=== PATIENT | female | born 1935 | race Caucasian/White ===

== ENCOUNTER 2017-11-13 13:33 | Outpatient (POV) | payer MEDICARE, SELFPAY | END 2017-11-13 16:50 | disposition home or self-care (01) | PROVIDERS: Visit Provider Podiatrist | DX: B35.3 Tinea pedis (principal); M20.41 Other hammer toe(s) (acquired), right foot; L84 Corns and callosities; M19.072 Primary osteoarthritis, left ankle and foot; M20.42 Other hammer toe(s) (acquired), left foot; M19.071 Primary osteoarthritis, right ankle and foot | CPT/HCPCS: 11056; 99204 ==

== ENCOUNTER 2017-11-28 08:52 | Outpatient (RCR) | payer MEDICARE, SELFPAY | END 2017-11-28 08:53 | LOC: PT 08:52 | PROVIDERS: Visit Provider Podiatrist | DX: M72.2 Plantar fascial fibromatosis (principal) ==

== ENCOUNTER 2017-12-02 13:00 | Outpatient (RCR) | payer MEDICARE, SELFPAY | END 2017-12-02 23:59 | LOC: PT 13:00 | PROVIDERS: Visit Provider Podiatrist | DX: M72.2 Plantar fascial fibromatosis (principal) | CPT/HCPCS: G8990; G8991; G8992; 97163 ==

== ENCOUNTER 2018-03-16 13:00 | Outpatient (RCR) | payer MEDICARE, SELFPAY ==
--- NOTE | 2018-01-21 14:19 | HMH.PTOPWND ---
Rehab Outpt Wound Evaluation Rehab OP Wound Evaluation Start: 01/21/18 14:15 Freq: Status: Active Protocol: Document 01/21/18 14:15 PHORNE (Rec: 01/21/18 14:19 PHORNE [id number]) Electronically Signed By Ganga Soriano, PT 01/21/18 14:15 Subjective/History History History Pt presents with c/o increased right UE edema causing disconfort x ~1-2 mos. She is well known to [facility] rehab due to hx of chronic right UE lymphedema secondary to past right side mastectomy. She currently reports no c/o pain, only feeling of tightness throughout the right UE and worse in the hand. She has significant PMH with juanis RCT tears and OA. Lymphedema Eval Classification of Lymphedema Secondary Lymphedema Yes: chronic Skin Changes Dry Skin Yes Pain Scale Pain Scale (0-10) 0 Affected Extremities Areas Affected by Lymphedema/Edema Right Upper Extremity Manual Lymphatic Drainage Treatment Area MLD Treatment Area Right Upper Extremity Abdomen Wound Problems/Impairments Impairments Problems/Impairmments Impaired Walking Impaired Lifting Increased Edema Lymphedema Present Impaired Self Care/Self Management Prognosis Rehab Potential Good Clinical Impression Consistent with Diagnosis Yes Short Term Goals Number of Weeks 4 Patient to be Ind w/ Donning/[place] Yes Compression Garments Patient to Understand Lymphedema Yes Treatment and Exercises Decrease Girth Measurments by (cm) Yes: by 5 cm Fixed Income Analyst Goals Number of Weeks 8 Patient to be Ind w/ Lymphedema Yes Management Patient to Adhere Lymphedema Precautions Yes Decrease Girth Measurments by (cm) Yes: by 10 cm Outpatient Therapy Plan of Care Treatment Plan May Include Therapeutic Exercise Including Home Yes Exercise Program Manual Therapy Techniques Yes Neuromuscular Re-education Yes Orthotics/Bracing/Splinting Yes Massage Yes Manual Lymphatic Drainage Yes Eval/Re-Eval Yes Frequency Times per week 2 Duration Number of Weeks 8 Addendums This patient is a candidate for social Yes or vocational rehab?
== END 2018-03-16 13:01 | disposition home or self-care (01) ==
LOC: PT 13:00
PROVIDERS: Visit Provider Internal Medicine Adolescent Medicine
DX: I89.0 Lymphedema, not elsewhere classified (principal)
CPT/HCPCS: 97140; 97162; 97760

== ENCOUNTER → 2018-05-26 14:18 | Outpatient (CLI) | payer MEDICARE, SELFPAY ==
[2018-05-26 15:22] LABS: Basophils # 0.1 K/mm3 (0-0.2); Basophils % 0.8 % (0.1-2.0); Eosinophils # 0.3 K/mm3 (0.0-0.4); Eosinophils % 3.9 % (0.1-12.0); Hematocrit 42.8 % (37.0-47.0); Hemoglobin 13.3 g/dL (12.2-16.2); Lymphocytes # 2.4 K/mm3 (0.7-4.5); Lymphocytes % 30.7 K/mm3 (10-50); Mean Corpuscular Hemoglobin 29.2 pg (27.0-31.2); Mean Platelet Volume 7.7 fl (7.4-10.4); Monocytes # 0.6 K/mm3 (0.1-1.0); Monocytes % 7.4 % (1.7-9.3); Neutrophils # 4.4 K/mm3 (1.8-7.8); Neutrophils % 57.1 % (37.0-80.0); Platelet Count 360 K/mm3 (142-424); Red Blood Count 4.55 M/mm3 (4.20-5.40); Red Cell Distribution Width 13.3 % (11.5-17.5); White Blood Count 7.6 K/mm3 (4.8-10.8)
[2018-05-26 16:37] LABS: Alanine Aminotransferase 18 U/L (12-78); Albumin Level 3.8 gm/dL (3.4-5.0); Albumin/Globulin Ratio 1.2 (1.1-1.8); Alkaline Phosphatase 108 U/L (46-116); Anion Gap 9.3 mEq/L (5-15); Aspartate Amino Transferase 20 U/L (15-37); Bilirubin,Total 0.5 mg/dL (0.2-1.0); Blood Urea Nitrogen 13 mg/dL (7-18); Carbon Dioxide 31 mmol/L (21.0-32.0); Chloride 100 mmol/L (98-107); Creatinine,Serum 0.77 mg/dL (0.55-1.02); Estimated Glomerular Filt Rate 72 ml/min (>60); GFR (African American) 87 ML/MIN (>60); Globulin 3.2 gm/dl (1.3-3.2); Glucose 90 mg/dL (74-106); Potassium 4.3 mmoL/L (3.5-5.1); Sodium 136 mmol/L (136-145); Thyroid Stimulating Hormone 1.86 uIU/ml (0.358-3.740)
[2018-05-27 13:07] LABS: Magnesium 1.9 mg/dL (1.4-2.2)
[2018-05-28 13:56] LABS: Vitamin B12 427 pg/mL (232-1245)
== END ==
PROVIDERS: Visit Provider Nurse Practitioner Family
DX: I48.0 Paroxysmal atrial fibrillation (principal); I10 Essential (primary) hypertension; K86.89 Other specified diseases of pancreas; K21.9 Gastro-esophageal reflux disease without esophagitis; K58.0 Irritable bowel syndrome with diarrhea
CPT/HCPCS: 36415; 80053; 82607; 83735; 84443; 85025

== ENCOUNTER → 2018-06-26 14:16 | Outpatient (POV) | payer MEDICARE, SELFPAY | PROVIDERS: Visit Provider Podiatrist | DX: Z00.00 Encounter for general adult medical examination without abnormal findings (principal) ==

== ENCOUNTER → 2018-08-14 11:30 | Outpatient (POV) | payer MEDICARE, SELFPAY | PROVIDERS: Visit Provider Podiatrist | DX: Z00.00 Encounter for general adult medical examination without abnormal findings (principal) ==

== ENCOUNTER → 2018-09-25 12:47 | Outpatient (CLI) | payer MEDICARE, SELFPAY ==
--- NOTE | 2018-09-25 12:53 | XR_ITS ---
XR abdomen min 2V COMPARISON: CT scan abdomen and pelvis 10/23/2015 HISTORY: Abnormal pain TECHNIQUE: KUB and upright abdomen FINDINGS: There is a large hiatal hernia with probable one half to two thirds of the stomach above the diaphragmatic hiatus. There are few short air-fluid levels on the upright film likely within distal small bowel loops. There is a small amount of gas in the hepatic flexure and proximal transverse colon appear there is very little if any gas distal to the splenic flexure. There are no abnormal soft tissue shadows. Is rather severe multilevel degenerative changes of the lumbar spine with dextro scoliotic curvature with a rotatory component. There is osseous fusion of multiple ossific spurs at the L1-2 through the L5-S1 level. There is no free air. IMPRESSION: 1. Large hiatal hernia 2. Mildly abnormal nonspecific bowel gas pattern 3. Prominent multilevel degenerative changes of lumbar spine showing no significant interval progression from the changes seen on the CT scan abdomen pelvis October 2015.
== END ==
PROVIDERS: PCP Internal Medicine Adolescent Medicine; Visit Provider Internal Medicine Adolescent Medicine
DX: R10.9 Unspecified abdominal pain (principal)
CPT/HCPCS: 74019

== ENCOUNTER → 2018-10-01 11:13 | Outpatient (POV) | payer MEDICARE, SELFPAY | PROVIDERS: Visit Provider Podiatrist | DX: Z00.00 Encounter for general adult medical examination without abnormal findings (principal) ==

== ENCOUNTER → 2018-12-10 13:03 | Outpatient (CLI) | payer MEDICARE, SELFPAY ==
[2018-12-10 13:53] LABS: Basophils % 0.6 % (0.1-2.0); Eosinophils # 0.1 K/mm3 (0.0-0.4); Eosinophils % 0.8 % (0.1-12.0); Hematocrit 42.5 % (37.0-47.0); Lymphocytes # 1.7 K/mm3 (0.7-4.5); Mean Corpuscular HGB Conc 30.6 g/dL (31.8-35.4); Mean Corpuscular Hemoglobin 29.3 pg (27.0-31.2); Mean Corpuscular Volume 95.9 fl (81-99); Monocytes # 0.5 K/mm3 (0.1-1.0); Monocytes % 8.4 % (1.7-9.3); Neutrophils % 63.2 % (37.0-80.0); Platelet Count 331 K/mm3 (142-424); Red Blood Count 4.43 M/mm3 (4.20-5.40); White Blood Count 6.2 K/mm3 (4.8-10.8)
[2018-12-10 14:25] LABS: Anion Gap 11.4 mEq/L (5-15); Blood Urea Nitrogen 14 mg/dL (7-18); Calcium 9.2 mg/dL (8.5-10.1); Carbon Dioxide 31 mmol/L (21.0-32.0); Chloride 96 mmol/L (98-107); Creatinine,Serum 0.86 mg/dL (0.55-1.02); Estimated Glomerular Filt Rate 63 ml/min (>60); GFR (African American) 76 ML/MIN (>60); Glucose 98 mg/dL (74-106); Magnesium 1.7 mg/dL (1.4-2.2); Potassium 4.4 mmoL/L (3.5-5.1); Sodium 134 mmol/L (136-145)
== END ==
PROVIDERS: Visit Provider Internal Medicine Adolescent Medicine
DX: R25.1 Tremor, unspecified (principal)
CPT/HCPCS: 36415; 80048; 83735; 85025

== ENCOUNTER → 2019-03-22 10:55 | Outpatient (CLI) | payer MEDICARE, SELFPAY ==
--- NOTE | 2019-03-22 | CI_ITS ---
Cerebrovascular Exam Indications: 433.10 Occlusion/stenosis of carotid artery without cerebral infarction. IMPRESSIONS 1. The bilateral vertebral arteries are patent with normal antegrade flow. Right ECA greater than 50% stenotic 2. Study suggests 20-49%(lower end of scale)stenosis involving the right internal carotid artery. 3. Study suggests 20-49% stenosis involving the left internal carotid artery. Disease progression from the study of 04-Jul-2016. Carotid duplex study. Complete study and Doppler flow study including spectral analysis, color and esteves scale imaging. Location: Vascular laboratory. Patient status: Outpatient. Tables: Arterial flow: + +--------+--------+ Location V sys V ed + +--------+--------+ Right CCA - proximal 110cm/s 17.3cm/s + +--------+--------+ Right CCA - distal 72.3cm/s 11.8cm/s + +--------+--------+ Right ECA 356cm/s -------- + +--------+--------+ Right ICA - proximal 45.4cm/s 14cm/s + +--------+--------+ Right ICA - mid 53.8cm/s 13.3cm/s + +--------+--------+ Right ICA - distal 98.5cm/s 28.6cm/s + +--------+--------+ Right vertebral 62.9cm/s -------- + +--------+--------+ Left CCA - proximal 99.2cm/s 16.1cm/s + +--------+--------+ Left CCA - distal 58.7cm/s 14.7cm/s + +--------+--------+ Left ECA 79.6cm/s -------- + +--------+--------+ Left ICA - proximal 97.8cm/s 14cm/s + +--------+--------+ Left ICA - mid 89.4cm/s 20.3cm/s + +--------+--------+ Left ICA - distal 94.3cm/s 23cm/s + +--------+--------+ Left vertebral 58cm/s -------- + +--------+--------+ Velocity ratios: + + + + + + Right, V sys Right, V ed Left, V sys Left, V ed + + + + + + Max ICA/dist CCA 1.36 2.42 1.67 1.56 + + + + + + (Report amended ) Electronically signed by: Henry Wynn [id number]
[2019-03-22 11:23] LABS: Basophils # 0.1 K/mm3 (0-0.2); Eosinophils # 0.2 K/mm3 (0.0-0.4); Eosinophils % 2.3 % (0.1-12.0); Hematocrit 40.5 % (37.0-47.0); Hemoglobin 13.2 g/dL (12.2-16.2); Lymphocytes % 28.4 % (10-50); Mean Corpuscular HGB Conc 32.5 g/dL (31.8-35.4); Mean Corpuscular Volume 92.5 fl (81-99); Mean Platelet Volume 7.2 fl (7.4-10.4); Monocytes # 0.4 K/mm3 (0.1-1.0); Monocytes % 5.7 % (1.7-9.3); Neutrophils # 4.3 K/mm3 (1.8-7.8); Neutrophils % 62.4 % (37.0-80.0); Platelet Count 410 K/mm3 (142-424); Red Blood Count 4.38 M/mm3 (4.20-5.40); White Blood Count 6.8 K/mm3 (4.8-10.8)
[2019-03-22 12:44] LABS: Alanine Aminotransferase 19 U/L (12-78); Albumin Level 3.7 gm/dL (3.4-5.0); Alkaline Phosphatase 110 U/L (46-116); Anion Gap 12.8 mEq/L (5-15); Aspartate Amino Transferase 13 U/L (15-37); Bilirubin,Total 0.5 mg/dL (0.2-1.0); Blood Urea Nitrogen 15 mg/dL (7-18); Calcium 9.7 mg/dL (8.5-10.1); Carbon Dioxide 30 mmol/L (21.0-32.0); Chloride 100 mmol/L (98-107); Chol/HDL Ratio 3.7 (1-3.5); Cholesterol 167 mg/dL (140-200); Creatinine,Serum 0.92 mg/dL (0.55-1.02); Estimated Glomerular Filt Rate 58 ml/min (>60); GFR (African American) 71 ML/MIN (>60); Globulin 3.7 gm/dl (1.3-3.2); Glucose 92 mg/dL (74-106); HDL Cholesterol 45 mg/dL (29-89); LDL Cholesterol 103 mg/dL (0-130); Potassium 4.8 mmoL/L (3.5-5.1); Sodium 138 mmol/L (136-145); Thyroid Stimulating Hormone 2.23 uIU/ml (0.358-3.740); Total Protein,Serum 7.4 gm/dL (6.4-8.2); Triglycerides 96 mg/dL (30-200); VLDL Cholesterol 19 mg/dL (0-40)
== END ==
PROVIDERS: PCP Nurse Practitioner Family; Visit Provider Nurse Practitioner Family
DX: I65.23 Occlusion and stenosis of bilateral carotid arteries (principal); I10 Essential (primary) hypertension; I48.0 Paroxysmal atrial fibrillation; M12.9 Arthropathy, unspecified
CPT/HCPCS: 36415; 80053; 80061; 84443; 85025; 93880

== ENCOUNTER → 2019-06-21 12:43 | Outpatient (POV) | payer MEDICARE, SELFPAY ==
[2019-06-21 12:53] VITALS: BP 169/55; PULSE 62; RESP 18; O2SAT 98; BMI 31.1
--- NOTE | 2019-06-21 13:26 | HMH.PMCON ---
Assessment and Plan (1) Sacroiliitis Current visit: Yes Status: Chronic Category: Medical Code(s): M46.1 - Sacroiliitis, not elsewhere classified (2) Greater trochanteric bursitis of right hip Current visit: Yes Status: Chronic Category: Medical Code(s): M70.61 - Trochanteric bursitis, right hip - Assessment and plan all Dx Assessment and Plan for all problems:: We will schedule the patient for a right SI joint injection in her right greater trochanteric bursa injection. Patient will continue with anti-inflammatories and home stretching program. We will see the patient back after her procedure to reassess her symptoms at that time. She is been instructed to call the office if she has any concerns prior to her next appointment. Dr. Hale has reviewed this note and agrees with this plan of care. This note was dictated using voice recognition software and make contain errors or omissions. HPI - Data of Consult Patient: new to practice Consult date: 06/21/19 Requesting Physician: Morenita Foster APRN Primary Care Provider: Fatmata Hercules APRN - Consult Narrative Reason for consult: Right lower back pain, right groin pain, right buttock pain History of present illness: Ms. Laughlin is a 84 year old female who presents today for referral from Fatmata Hercules. Patient reports that she is having increased pain in her lower back, with radiation to her right buttock and right groin area. Patient says she has had this in the past and has seen a chiropractor and performed physical therapy. She says that this has helped with her pain, but did not take the pain away entirely. She says this has been ongoing for about 2 years. The patient has also tried Biofreeze, along with cold therapy with very little relief. Patient rates her pain as 7 out of 10 today. She says that her pain is worse when lying down and with bending over to put on her socks. Patient does continue her home stretching program and anti-inflammatories. CC: Morenita Foster APRN [facility] History I have reviewed the patient's past medical history: Yes Medical History: Reports:: Atrial Fibrillation, Hepatitis, Hyperlipidemia, Hypertension Denies:: Cerebrovascular Accident, Diabetes Mellitus Type 1, Diabetes Mellitus Type 2, Myocardial Infarction, Renal Disease, Renal Insufficiency *Have you ever received a pneumonia vaccine?: Yes *Have you received a flu vaccine this season?: Yes Other Medical History: Reports: Arthritis Laterality Cases: Right: Mastectomy, Bilateral: Tonsillectomy Other Surgeries: Yes: Cholecystectomy Amputation: No Fractures: No - *Social History Smoking Status: Never smoker Alcohol Intake: never Alcohol Intake Frequency:: other *Occupational Status:: retired Housing: house Household Members: other *Travel in the last 8 weeks: None Family Hx:: Cancer, Diabetes, Hyperlipidemia, Hypertension Review of Systems - Review of Systems Review of Systems General: No recent weight changes, no fever, no sleep disturbances Respiratory: No cough, no shortness of air, no recurring pulmonary infections Cardiovascular/peripheral vascular: No chest pain, no palpitations, no edema, no shortness of breath Gastrointestinal: No new onset incontinence, normal bowel movements reported Genitourinary: No new onset incontinence Musculoskeletal: Back pain, right groin pain, right buttock pain Psychiatric: Normal mood/affect Neurological: [Denies weakness in extremities], [denies balance issues] Meds Home Medications Medication Instructions Recorded Confirmed Type aspirin 81 mg tablet,delayed 81 mg PO ONCE 01/26/18 04/27/19 History release buspirone 10 mg tablet 10 mg PO 30 Days tab 01/26/18 04/27/19 History carvedilol 6.25 mg tablet 6.25 mg PO 30 Days tab 01/26/18 04/27/19 History cholecalciferol (vitamin D3) 2,000 2,000 unit PO ONCE 01/26/18 04/27/19 History unit capsule furosemide 40 mg tablet 40 mg PO ONCE 01/26/18
--- NOTE | 2019-06-21 13:29 | P.CONS_ITS ---
Assessment and Plan (1) Sacroiliitis Current visit: Yes Status: Chronic Category: Medical Code(s): M46.1 - Sacroiliitis, not elsewhere classified (2) Greater trochanteric bursitis of right hip Current visit: Yes Status: Chronic Category: Medical Code(s): M70.61 - Trochanteric bursitis, right hip - Assessment and plan all Dx Assessment and Plan for all problems:: We will schedule the patient for a right SI joint injection in her right greater trochanteric bursa injection. Patient will continue with anti-inflammatories and home stretching program. We will see the patient back after her procedure to reassess her symptoms at that time. She is been instructed to call the office if she has any concerns prior to her next appointment. Dr. Hale has reviewed this note and agrees with this plan of care. This note was dictated using voice recognition software and make contain errors or omissions. HPI - Data of Consult Patient: new to practice Consult date: 06/21/19 Requesting Physician: Morenita Foster APRN Primary Care Provider: Fatmata Hercules APRN - Consult Narrative Reason for consult: Right lower back pain, right groin pain, right buttock pain History of present illness: Ms. Laughlin is a 84 year old female who presents today for referral from Fatmata Hercules. Patient reports that she is having increased pain in her lower back, with radiation to her right buttock and right groin area. Patient says she has had this in the past and has seen a chiropractor and performed physical therapy. She says that this has helped with her pain, but did not take the pain away entirely. She says this has been ongoing for about 2 years. The patient has also tried Biofreeze, along with cold therapy with very little relief. Patient rates her pain as 7 out of 10 today. She says that her pain is worse when lying down and with bending over to put on her socks. Patient does continue her home stretching program and anti-inflammatories. CC: Morenita Foster APRN [facility] History I have reviewed the patient's past medical history: Yes Medical History: Reports:: Atrial Fibrillation, Hepatitis, Hyperlipidemia, Hypertension Denies:: Cerebrovascular Accident, Diabetes Mellitus Type 1, Diabetes Melli tus Type 2, Myocardial Infarction, Renal Disease, Renal Insufficiency *Have you ever received a pneumonia vaccine?: Yes *Have you received a flu vaccine this season?: Yes Other Medical History: Reports: Arthritis Laterality Cases: Right: Mastectomy, Bilateral: Tonsillectomy Other Surgeries: Yes: Cholecystectomy Amputation: No Fractures: No - *Social History Smoking Status: Never smoker Alcohol Intake: never Alcohol Intake Frequency:: other *Occupational Status:: retired Housing: house Household Members: other *Travel in the last 8 weeks: None Family Hx:: Cancer, Diabetes, Hyperlipidemia, Hypertension Review of Systems - Review of Systems Review of Systems General: No recent weight changes, no fever, no sleep disturbances Respiratory: No cough, no shortness of air, no recurring pulmonary infections Cardiovascular/peripheral vascular: No chest pain, no palpitations, no edema, no shortness of breath Gastrointestinal: No new onset incontinence, normal bowel movements reported Genitourinary: No new onset incontinence Musculoskeletal: Back pain, right groin pain, right buttock pain Psychiatric: Normal mood/affect Neurological: [Denies weakness in extremities], [denies balance issues] Meds Home Medications
== END ==
PROVIDERS: PCP Nurse Practitioner Family; Visit Provider Clinical Nurse Specialist Family Health
DX: M46.1 Sacroiliitis, not elsewhere classified (principal); M70.61 Trochanteric bursitis, right hip
CPT/HCPCS: 99202

== ENCOUNTER → 2019-07-15 12:53 | Outpatient (CLI) | payer MEDICARE, SELFPAY ==
--- NOTE | 2019-07-15 12:57 | XR_ITS ---
PROCEDURE: XR KUB CLINICAL INDICATION: LOW ABD PAIN, RECTAL PRESSURE, IBS COMPARISON: ABDPELW CT ABD PELVIS W/ CONTRAST from 10/23/2015 FINDINGS: Nonspecific nonobstructive bowel gas pattern. There is a 5 mm calcific density in the mid abdominal region on the left and could be due to a renal stone. There is a mild amount of retained colonic feces in the right colon. No evidence of intestinal obstruction or free air. There is lumbar scoliosis convex right with bridging osteophytes of the lumbar spine on the right and with osteoarthritic changes of the SI joints and hips. IMPRESSION: Nonspecific nonacute findings Dictated by: Preet Sofia MD 07/15/2019 17:28 Signed by: <Electronically signed by Preet Sofia MD in [place]> 07/15/2019 17:28
== END ==
PROVIDERS: PCP Nurse Practitioner Family; Visit Provider Nurse Practitioner Family
DX: R10.30 Lower abdominal pain, unspecified (principal); R19.8 Other specified symptoms and signs involving the digestive system and abdomen; K58.2 Mixed irritable bowel syndrome
CPT/HCPCS: 74018

== ENCOUNTER → 2019-07-26 13:00 | Outpatient (POV) | payer MEDICARE, SELFPAY ==
[2019-07-26 13:40] VITALS: BP 175/52; PULSE 57; RESP 18; O2SAT 98; BMI 29.1
--- NOTE | 2019-07-26 13:50 | HMH.PAINSOAP ---
[facility] Pain Management SOAP Note Subjective:: Patient is a pleasant 84-year-old white female who presents today for follow-up after right SI joint injection. She rates her pain a 0 out of 10 she is overall doing well she would like to follow-up on an as-needed basis. ROS General: no recent weight change, no fever, no sleep disturbances Respiratory: no cough, no shortness of air, no recurring pulmonary infections Cardiovascular/Peripheral Vascular: No chest pain, No palpitations, no edema, no shortness of breath. Gastrointestinal: no incontinence, normal bowel movements reported Genitourinary: no incontinence Musculoskeletal: Right hip pain at times Psychiatric: normal mood/ affect, Neurological: [denies weakness in extremities], [denies balance issues] Objective:: Physical Exam General: Alert and oriented x3, no acute distress, pleasant and cooperative, [on room air] Lungs: Resps E/U, Symmetrical chest expansion, Eyes: PERRL Musculoskeletal: Flexion and extension of lumbar spine somewhat guarded secondary to pain, deep tendon reflexes normal, strength in upper and lower extremities [5/5], antalgic gait noted Neurological: speech clear, home health physical therapist equal, no gross sensory deficits Assessment:: Sacroiliitis and trochanteric bursitis Plan:: Overall patient is doing extremely well rating her pain a 0 out of 10 she would like to follow-up on an as-needed basis. She has been instructed to call the office if she has any issues or worsening pain. Dr. Hale has reviewed this note and agrees with this plan of care. This note was dictated using voice recognition software and may contain errors or omissions Pain Management Hx Components *Have you ever received a pneumonia vaccine?: Yes *Have you received a flu vaccine this season?: Yes - *Social History *Occupational Status:: other *Travel in the last 8 weeks: None
== END ==
PROVIDERS: PCP Internal Medicine Adolescent Medicine; Visit Provider Clinical Nurse Specialist Family Health
DX: M46.1 Sacroiliitis, not elsewhere classified (principal); M70.60 Trochanteric bursitis, unspecified hip
CPT/HCPCS: 99212

== ENCOUNTER → 2019-12-28 11:48 | Outpatient (CLI) | payer MEDICARE, SELFPAY ==
[2019-12-28 12:15] LABS: Basophils # 0.1 K/mm3 (0-0.2); Basophils % 1.4 % (0.1-2.0); Eosinophils # 0.2 K/mm3 (0.0-0.4); Eosinophils % 2.7 % (0.1-12.0); Hematocrit 42.3 % (37.0-47.0); Hemoglobin 13.5 g/dL (12.2-16.2); Lymphocytes % 28.9 % (10-50); Mean Corpuscular HGB Conc 31.8 g/dL (31.8-35.4); Mean Corpuscular Hemoglobin 30.4 pg (27.0-31.2); Mean Corpuscular Volume 95.5 fl (81-99); Mean Platelet Volume 7.8 fl (7.4-10.4); Monocytes # 0.5 K/mm3 (0.1-1.0); Monocytes % 7.3 % (1.7-9.3); Neutrophils % 59.7 % (37.0-80.0); Platelet Count 295 K/mm3 (142-424); Red Blood Count 4.43 M/mm3 (4.20-5.40); Red Cell Distribution Width 12.6 % (11.5-17.5); White Blood Count 6.8 K/mm3 (4.8-10.8)
[2019-12-28 14:21] LABS: Alanine Aminotransferase 15 U/L (12-78); Albumin Level 3.7 gm/dL (3.4-5.0); Albumin/Globulin Ratio 1.2 (1.1-1.8); Alkaline Phosphatase 99 U/L (46-116); Anion Gap 13.9 mEq/L (5-15); Bilirubin,Total 0.5 mg/dL (0.2-1.0); Blood Urea Nitrogen 15 mg/dL (7-18); Calcium 9.2 mg/dL (8.5-10.1); Carbon Dioxide 29 mmol/L (21.0-32.0); Chloride 105 mmol/L (98-107); Chol/HDL Ratio 2.7 (1-3.5); Cholesterol 150 mg/dL (140-200); Estimated Glomerular Filt Rate 60 ml/min (>60); GFR (African American) 72 ML/MIN (>60); Glucose 85 mg/dL (74-106); HDL Cholesterol 55 mg/dL (29-89); LDL Cholesterol 81 mg/dL (0-130); Sodium 143 mmol/L (136-145); Thyroid Stimulating Hormone 1.71 uIU/ml (0.358-3.740); Total Protein,Serum 6.7 gm/dL (6.4-8.2); Triglycerides 72 mg/dL (30-200); VLDL Cholesterol 14 mg/dL (0-40)
[2019-12-28 14:23] LABS: Potassium 4.9 mmoL/L (3.5-5.1)
[2019-12-28 14:24] LABS: Aspartate Amino Transferase 22 U/L (15-37)
== END ==
PROVIDERS: Visit Provider Nurse Practitioner Family
DX: I10 Essential (primary) hypertension (principal); E78.5 Hyperlipidemia, unspecified; K58.0 Irritable bowel syndrome with diarrhea
CPT/HCPCS: 36415; 80053; 80061; 84443; 85025

== ENCOUNTER → 2020-07-31 15:33 | Outpatient (CLI) | payer MEDICARE, SELFPAY ==
[2020-07-31 15:52] LABS: Basophils # 0.1 K/mm3 (0-0.2); Basophils % 0.7 % (0.1-2.0); Eosinophils # 0.1 K/mm3 (0.0-0.4); Eosinophils % 1.2 % (0.1-12.0); Hematocrit 41.7 % (37.0-47.0); Hemoglobin 13.6 g/dL (12.2-16.2); Lymphocytes # 2.1 K/mm3 (0.7-4.5); Lymphocytes % 26.9 % (10-50); Mean Corpuscular HGB Conc 32.6 g/dL (31.8-35.4); Mean Corpuscular Hemoglobin 31.7 pg (27.0-31.2); Mean Corpuscular Volume 97.3 fl (81-99); Mean Platelet Volume 7.2 fl (7.4-10.4); Monocytes # 0.5 K/mm3 (0.1-1.0); Neutrophils % 65.2 % (37.0-80.0); Platelet Count 342 K/mm3 (142-424); Red Blood Count 4.29 M/mm3 (4.20-5.40); White Blood Count 7.7 K/mm3 (4.8-10.8)
[2020-07-31 16:16] LABS: Alanine Aminotransferase 15 U/L (12-78); Albumin Level 4.1 g/dl (3.5-5.0); Albumin/Globulin Ratio 1.4 (1.1-1.8); Alkaline Phosphatase 99 U/L (38-126); Anion Gap 14.2 mEq/L (5-15); Aspartate Amino Transferase 26 U/L (14-36); Bilirubin,Total 0.5 mg/dl (0.2-1.3); Blood Urea Nitrogen 13 mg/dl (7-17); Calcium 9.3 mg/dl (8.4-10.2); Carbon Dioxide 28 mmol/L (22.0-30.0); Chloride 97 mmol/L (98-107); Estimated Glomerular Filt Rate 60 ml/min (>60); GFR (African American) 72 ML/MIN (>60); Globulin 2.9 g/dL (1.3-3.2); Glucose 134 mg/dl (74-100); Potassium 4.2 mmoL/L (3.5-5.1); Sodium 135 mmol/L (136-145)
[2020-07-31 16:34] LABS: 25-OH Vitamin D, Total 38.4 ng/mL (30-100)
[2020-07-31 16:48] LABS: Thyroid Stimulating Hormone 1.34 uIU/mL (0.465-4.68)
[2020-07-31 17:07] LABS: Vitamin B12 254 pg/mL (239-931)
== END ==
PROVIDERS: Visit Provider Nurse Practitioner Family
DX: I10 Essential (primary) hypertension (principal); R20.2 Paresthesia of skin; M53.9 Dorsopathy, unspecified
CPT/HCPCS: 36415; 80053; 82306; 82607; 84443; 85025

== ENCOUNTER 2021-01-30 13:00 | Outpatient (RCR) | payer MEDICARE, SELFPAY ==
--- NOTE | 2020-05-17 14:20 | HMH.PTOPWND ---
Rehab Outpt Wound Evaluation Rehab OP Wound Evaluation Start: 05/17/20 13:50 Freq: Status: Active Protocol: Document 05/17/20 14:14 RYAN (Rec: 05/17/20 14:20 PHORNE [id number]) Electronically Signed By Ganga Soriano, PT 05/17/20 14:14 Subjective/History History History Pt is 85 yowf who presents with increased R UE lymphedema x ~ 3-4 mos. She has long hx of chronic R UE lymphedema due to R breast cancer with mastectomy and generally does an excellent job of self care at home, but needs assistance with her symptoms now. She reports no c/o pain at this time, but she does have some burning and tingling in fingertips on B hands. Subjective Subjective Currently no c/o pain. Lymphedema Eval Classification of Lymphedema Secondary Lymphedema Yes: Breast CA Stemmer's sign Stemmer's Sign no Stage of Lymphedema Lymphedema stages Stage II (Pitting edema, increased fibrosis w/ decreased pitting) Skin Changes Dry Skin Yes Taut, Shiny Skin Yes Discoloration of Skin Yes Other Changes Yes Chemo Therapy Has received chemo therapy yes Affected Extremities Areas Affected by Lymphedema/Edema Right Upper Extremity,Right Breast,Right Axilla Manual Lymphatic Drainage Treatment Area MLD Treatment Area Right Upper Extremity,Right Breast,Right Axilla Wound Problems/Impairments Impairments Problems/Impairmments Impaired Strength,Impaired Endurance,Impaired Household Care,Lymphedema Present, Impaired Self Care/Self Management Prognosis Rehab Potential Good Clinical Impression Consistent with Diagnosis Yes Short Term Goals Number of Weeks 4 Decrease Lymphedema Yes Patient to be Ind w/ Donning/[place] Yes Compression Garments Patient to Understand Lymphedema Yes Treatment and Exercises Decrease Girth Measurments by (cm) Yes: by 10 cm Hair Weaver Goals Number of Weeks 8 Decrease Lymphedema Yes Patient to be Ind w/ HEP Yes Patient to be Ind w/ Lymphedema Self Yes Massage Technique Patient to Adhere Lymphedema Precautions Yes Decrease G
--- NOTE | 2020-07-03 13:39 | HMH.RHREAS ---
Rehab Reassessment Rehab OP Re-assessment Start: 07/03/20 13:35 Freq: Status: Active Protocol: Document 07/03/20 13:35 RYAN (Rec: 07/03/20 13:39 RYAN [id number]) Electronically Signed By Ganga Soriano, PT 07/03/20 13:35 Rehab Re-assessment Subjective Subjective Pt reports she feels a little better overall. Very compliant with compression. Objective Objective Notes Circumferential measurement: TOTAL -16.5 CM SINCE INITIAL EVAL. Assessment Progress Assessment Progressing as Expected Assessment Notes Pt with decreased edema, improved tissue quality with less fibrosis. Patient goals met ST,2,3,4 Goals Not Met LT,2,3,4 Revised Goals none Plan Plan Continue per initial POC. Frequency of Therapy 2 x/wk Duration of therapy 8 wks Time and Billing Re-Eval Time 15 Re-Eval Billing Units 1 PHYSICIAN CERTIFICATION: I certify the specified therapy services for Sheri Laughlin are required, authorized, and reviewed every 30 days.
--- NOTE | 2020-09-21 11:58 | HMH.PTOPWND ---
Rehab Outpt Wound Evaluation Rehab OP Wound Evaluation Start: 05/17/20 13:50 Freq: Status: Active Protocol: Document 05/17/20 14:14 RYAN (Rec: 05/17/20 14:20 PHORNE [id number]) Electronically Signed By Ganga Soriano, PT 05/17/20 14:14 Subjective/History History History Pt is 85 yowf who presents with increased R UE lymphedema x ~ 3-4 mos. She has long hx of chronic R UE lymphedema due to R breast cancer with mastectomy and generally does an excellent job of self care at home, but needs assistance with her symptoms now. She reports no c/o pain at this time, but she does have some burning and tingling in fingertips on B hands. Subjective Subjective Currently no c/o pain. Lymphedema Eval Classification of Lymphedema Secondary Lymphedema Yes: Breast CA Stemmer's sign Stemmer's Sign no Stage of Lymphedema Lymphedema stages Stage II (Pitting edema, increased fibrosis w/ decreased pitting) Skin Changes Dry Skin Yes Taut, Shiny Skin Yes Discoloration of Skin Yes Other Changes Yes Chemo Therapy Has received chemo therapy yes Affected Extremities Areas Affected by Lymphedema/Edema Right Upper Extremity,Right Breast,Right Axilla Manual Lymphatic Drainage Treatment Area MLD Treatment Area Right Upper Extremity,Right Breast,Right Axilla Wound Problems/Impairments Impairments Problems/Impairmments Impaired Strength,Impaired Endurance,Impaired Household Care,Lymphedema Present, Impaired Self Care/Self Management Prognosis Rehab Potential Good Clinical Impression Consistent with Diagnosis Yes Short Term Goals Number of Weeks 4 Decrease Lymphedema Yes Patient to be Ind w/ Donning/[place] Yes Compression Garments Patient to Understand Lymphedema Yes Treatment and Exercises Decrease Girth Measurments by (cm) Yes: by 10 cm Director Child Abuse Therapy Goals Number of Weeks 8 Decrease Lymphedema Yes Patient to be Ind w/ HEP Yes Patient to be Ind w/ Lymphedema Self Yes Massage Technique Patient to Adhere Lymphedema Precautions Yes Decrease G
== END 2021-01-30 13:05 | disposition home or self-care (01) ==
LOC: PT 13:00
PROVIDERS: Visit Provider Nurse Practitioner Family
DX: I97.2 Postmastectomy lymphedema syndrome (principal)
CPT/HCPCS: 97140; 97162; 97164; 97760

== ENCOUNTER → 2021-07-09 13:01 | Outpatient (CLI) | payer MEDICARE, SELFPAY ==
[2021-07-09 13:23] LABS: Basophils # 0.1 K/mm3 (0-0.2); Eosinophils # 0.1 K/mm3 (0.0-0.4); Eosinophils % 0.9 % (0.1-12.0); Hematocrit 43.3 % (37.0-47.0); Hemoglobin 14.3 g/dL (12.2-16.2); Lymphocytes # 2.2 K/mm3 (0.7-4.5); Lymphocytes % 22.5 % (10-50); Mean Corpuscular HGB Conc 32.9 g/dL (31.8-35.4); Mean Corpuscular Hemoglobin 30.5 pg (27.0-31.2); Mean Corpuscular Volume 92.6 fl (81-99); Mean Platelet Volume 7.5 fl (7.4-10.4); Monocytes # 0.6 K/mm3 (0.1-1.0); Monocytes % 6.2 % (1.7-9.3); Neutrophils # 6.9 K/mm3 (1.8-7.8); Neutrophils % 69.4 % (37.0-80.0); Platelet Count 331 K/mm3 (142-424); Red Blood Count 4.67 M/mm3 (4.20-5.40); Red Cell Distribution Width 13.6 % (11.5-17.5)
[2021-07-09 14:23] LABS: Chloride 98 mmol/L (98-107)
[2021-07-09 14:24] LABS: Potassium 4.5 mmoL/L (3.5-5.1); Sodium 136 mmol/L (136-145)
[2021-07-09 14:26] LABS: Alanine Aminotransferase 14 U/L (12-78); Alkaline Phosphatase 102 U/L (38-126); Aspartate Amino Transferase 26 U/L (14-36); Bilirubin,Total 0.7 mg/dl (0.2-1.3); Blood Urea Nitrogen 17 mg/dl (7-17); Estimated Glomerular Filt Rate 68 ml/min (>60); GFR (African American) 82 ML/MIN (>60)
[2021-07-09 14:27] LABS: Albumin Level 4.5 g/dl (3.5-5.0); Albumin/Globulin Ratio 1.5 (1.1-1.8); Anion Gap 11.5 mEq/L (5-15); Calcium 9.7 mg/dl (8.4-10.2); Carbon Dioxide 31 mmol/L (22.0-30.0); Globulin 3.1 g/dL (1.3-3.2); Glucose 94 mg/dl (74-100); Total Protein,Serum 7.6 g/dl (6.3-8.2)
[2021-07-09 14:57] LABS: Thyroid Stimulating Hormone 1.47 uIU/mL (0.465-4.68)
== END ==
PROVIDERS: Visit Provider Nurse Practitioner Family
DX: I10 Essential (primary) hypertension (principal); R60.0 Localized edema
CPT/HCPCS: 36415; 80053; 84443; 85025

== ENCOUNTER → 2021-10-16 16:32 | Outpatient (CLI) | payer MEDICARE, SELFPAY | PROVIDERS: Visit Provider Nurse Practitioner Family | DX: R30.0 Dysuria (principal) | CPT/HCPCS: 87086 ==

== ENCOUNTER → 2022-01-10 14:36 | Outpatient (CLI) | payer MEDICARE, SELFPAY ==
[2022-01-10 15:36] LABS: Basophils # 0.2 K/mm3 (0-0.2); Basophils % 1.7 % (0.1-2.0); Eosinophils # 0.1 K/mm3 (0.0-0.4); Eosinophils % 0.8 % (0.1-12.0); Hematocrit 45.1 % (37.0-47.0); Hemoglobin 14.1 g/dL (12.2-16.2); Lymphocytes # 2.4 K/mm3 (0.7-4.5); Lymphocytes % 26.8 % (10-50); Mean Corpuscular HGB Conc 31.2 g/dL (31.8-35.4); Mean Corpuscular Hemoglobin 30.6 pg (27.0-31.2); Mean Platelet Volume 8.7 fl (7.4-10.4); Monocytes # 0.7 K/mm3 (0.1-1.0); Monocytes % 7.4 % (1.7-9.3); Neutrophils # 5.6 K/mm3 (1.8-7.8); Neutrophils % 63.2 % (37.0-80.0); Platelet Count 382 K/mm3 (142-424); Red Blood Count 4.61 M/mm3 (4.20-5.40); Red Cell Distribution Width 13.4 % (11.5-17.5); White Blood Count 8.8 K/mm3 (4.8-10.8)
[2022-01-10 16:35] LABS: Erythrocyte Sedimentation Rate 15 mm/hr (0-30)
[2022-01-10 17:35] LABS: Alanine Aminotransferase 14 U/L (12-78); Albumin Level 4.5 g/dl (3.5-5.0); Albumin/Globulin Ratio 1.7 (1.1-1.8); Alkaline Phosphatase 85 U/L (38-126); Anion Gap 10.5 mEq/L (5-15); Aspartate Amino Transferase 29 U/L (14-36); Bilirubin,Total 0.8 mg/dl (0.2-1.3); Blood Urea Nitrogen 11 mg/dl (7-17); Calcium 9.6 mg/dl (8.4-10.2); Carbon Dioxide 30 mmol/L (22.0-30.0); Chloride 100 mmol/L (98-107); Estimated Glomerular Filt Rate 68 ml/min (>60); GFR (African American) 82 ML/MIN (>60); Globulin 2.7 g/dL (1.3-3.2); Glucose 100 mg/dl (74-100); Potassium 4.5 mmoL/L (3.5-5.1); Sodium 136 mmol/L (136-145); Total Protein,Serum 7.2 g/dl (6.3-8.2)
[2022-01-10 17:41] LABS: C-Reactive Protein 1.6 mg/L (0-4)
== END ==
PROVIDERS: PCP Internal Medicine Adolescent Medicine; Visit Provider Nurse Practitioner Family
DX: L03.039 Cellulitis of unspecified toe (principal)
CPT/HCPCS: 36415; 80053; 85025; 85651; 86140

== ENCOUNTER → 2022-06-06 13:54 | Outpatient (CLI) | payer MEDICARE, SELFPAY ==
--- NOTE | 2022-06-06 13:59 | XR_ITS ---
FINAL REPORT CLINICAL HISTORY: pain and swelling COMPARISON: December 12, 2016 FINDINGS: LEFT FOOT Three views of the left foot obtained. The bones are osteopenic. There is no acute fracture or dislocation. There is mild degenerative change. The visualized joint spaces are normally aligned. There is a chronic deformity of the distal 5th metatarsal which likely represents a chronic fracture. This is new since the prior exam in 2017. The soft tissues are unremarkable. IMPRESSION: Mild degenerative change with no acute bony abnormality. Reviewed, Interpreted and Dictated by Shaun Leal III, MD Transcribed by Shelly Alcantara Authenticated and [facility]
--- NOTE | 2022-06-06 13:59 | XR_ITS ---
FINAL REPORT CLINICAL HISTORY: pain and swelling FINDINGS: LEFT ANKLE Three views of the left ankle were obtained. There is no acute fracture or dislocation. There is mild and moderate degenerative change. There is a calcaneal spur. There are soft tissue calcifications. There is soft tissue swelling. IMPRESSION: Swelling with degenerative change and no acute bony abnormality. Reviewed, Interpreted and Dictated by Shaun Leal III, MD Transcribed by Shelly Alcantara Authenticated and . [facility]
== END ==
PROVIDERS: PCP Internal Medicine Adolescent Medicine; Visit Provider Podiatrist
DX: M25.572 Pain in left ankle and joints of left foot; M79.672 Pain in left foot
CPT/HCPCS: 73610; 73630

== ENCOUNTER 2022-09-19 13:00 | Outpatient (RCR) | payer MEDICARE, SELFPAY ==
--- NOTE | 2021-09-04 15:25 | HMH.PTOPWND ---
Rehab Outpt Wound Evaluation Rehab OP Wound Evaluation Start: 09/04/21 15:16 Freq: Status: Active Protocol: Document 09/04/21 15:17 RYAN (Rec: 09/04/21 15:25 PHORNE [id number]) Electronically Signed By Ganga Soriano, PT 09/04/21 15:17 Subjective/History History History Pt is 86 yowf who presents with chronic R UE lymphedema for many yrs after mastectomy due to breast cancer. She reports increased edema over the past 1-2 mos with difficulty wearing her compression sleeve. She reports no c/o pain at this time, but intermitte t numbness/tingling inher fingers. Subjective Subjective Pt with no c/o pain at this time and no tenderness to palpation. Lymphedema Eval Classification of Lymphedema Secondary Lymphedema Yes Stemmer's sign Stemmer's Sign no Stage of Lymphedema Lymphedema stages Stage II (Pitting edema, increased fibrosis w/ decreased pitting) Skin Changes Dry Skin Yes Skin Folds Yes Redness Yes Discoloration of Skin Yes Other Changes Yes Affected Extremities Areas Affected by Lymphedema/Edema Right Upper Extremity,Right Axilla Manual Lymphatic Drainage Treatment Area MLD Treatment Area Right Upper Extremity,Right Axilla Wound Problems/Impairments Impairments Problems/Impairmments Impaired Endurance,Impaired Gait Pattern,Impaired Walking, Impaired Standing,Impaired Household Care,Impaired Recreational Activities, Increased Edema,Lymphedema Present,Impaired Self Care/ Self Management Prognosis Rehab Potential Good Clinical Impression Consistent with Diagnosis Yes Short Term Goals Number of Weeks 4 Decrease Edema Yes Patient to Understand Lymphedema Yes Treatment and Exercises Fdc Goals Number of Weeks 8 Decrease Lymphedema Yes Patient to be Ind w/ HEP Yes Patient to be Ind w/ Donning/[place] Yes Compression Garments Patient to Adhere Lymphedem
--- NOTE | 2021-10-02 13:52 | HMH.RHREAS ---
Rehab Reassessment Rehab OP Re-assessment Start: 10/02/21 13:50 Freq: Status: Active Protocol: Document 10/02/21 13:50 RYAN (Rec: 10/02/21 13:52 RYAN [id number]) Electronically Signed By Ganga Soriano, PT 10/02/21 13:50 Rehab Re-assessment Subjective Subjective Pt reports no new c/o, feeling better overall with swelling. Objective Objective Notes Fibrotic edema remains in medial R forearm. Tissue quality less stiff overall. Assessment Progress Assessment Progressing as Expected Assessment Notes Pt with decreased edema overall throughout R UE, some continued persistent edema in the R forearm. Patient goals met ST,2 Goals Not Met LT,2,3,4 Revised Goals none Plan Plan Continue per initial POC Frequency of Therapy 2 x/wk Duration of therapy 8 wks Time and Billing Re-Eval Time 15 Re-Eval Billing Units 0 PHYSICIAN CERTIFICATION: I certify the specified therapy services for Sheri Laughlin are required, authorized, and reviewed every 30 days.
--- NOTE | 2021-10-30 15:02 | HMH.RHREAS ---
Rehab Reassessment Rehab OP Re-assessment Start: 10/02/21 13:50 Freq: Status: Active Protocol: Document 10/30/21 15:00 RYAN (Rec: 10/30/21 15:02 RYAN [id number]) Electronically Signed By Ganga Soriano, PT 10/30/21 15:00 Rehab Re-assessment Subjective Subjective Pt with no new c/o this date, reports less stiffness around the R elbow today. Objective Objective Notes R UE much softer to palpation this date especially R forearm . Improved tolerance to compression sleeve. Assessment Progress Assessment Progressing as Expected Assessment Notes Musch less erythema noted at this time, Less fibrotic tissuequality throughout the R UE. Some continued persistent edema in the R forearm. Patient goals met ST,2 Goals Not Met LT,2,3,4 Revised Goals none Plan Plan Continue per initial POC Frequency of Therapy 2 x/wk Duration of therapy 8 wks Time and Billing Re-Eval Time 15 Re-Eval Billing Units 0 PHYSICIAN CERTIFICATION: I certify the specified therapy services for Sheri Laughlin are required, authorized, and reviewed every 30 days.
--- NOTE | 2021-12-11 15:39 | HMH.RHREAS ---
Rehab Reassessment Rehab OP Re-assessment Start: 10/02/21 13:50 Freq: Status: Active Protocol: Document 12/11/21 15:35 RYAN (Rec: 12/11/21 15:39 PHOMARIAELENA [id number]) Electronically Signed By Ganga Soriano, PT 12/11/21 15:35 Rehab Re-assessment Subjective Subjective Pt reports she is mildly frustrated with little progress in her forearm edema. Otherwise the R UE is feeling better. Objective Objective Notes R UE forearm with increased firmness in the tissue and fibrotic tissue quality during palpation. Mild [place] coloration of the medial R forarm and elbow. Assessment Progress Assessment Slower Than Expected Assessment Notes Continues to have less edema overall, but R forearm ( especially medially) has been more stubborn this treatment session. Significant change in regards to edema of the R UE overall resulting in need for continued services if not increased treatment. Patient goals met ST,2 Goals Not Met LT,2,3,4 Revised Goals none Plan Plan Continue per initial POC Frequency of Therapy 2 x/wk Duration of therapy 8 wks Time and Billing Re-Eval Time 15 Re-Eval Billing Units 1 PHYSICIAN CERTIFICATION: I certify the specified therapy services for Sheri Laughlin are required, authorized, and reviewed every 30 days.
--- NOTE | 2022-01-14 14:08 | HMH.RHREAS ---
Rehab Reassessment Rehab OP Re-assessment Start: 10/02/21 13:50 Freq: Status: Active Protocol: Document 01/14/22 14:04 RYAN (Rec: 01/14/22 14:06 RYAN [id number]) Electronically Signed By Ganga Soriano, PT 01/14/22 14:04 Rehab Re-assessment Subjective Subjective Pt wit hno new c/o, feels good with her arm. Worries about increased edema in her R LE. Objective Objective Notes R UE forearm with increased firmness in the tissue and fibrotic tissue quality during palpation. Mild [place] coloration of the medial R forarm and elbow, 2+ pitting edema at anterior distal forearm and wrist. Assessment Progress Assessment Progressing as Expected Assessment Notes Continues to have significant changes in condition with increased pitting noted this date. R upper arm is more soft with palpation, but forearm continues to show increased fibrosis. Patient goals met ST,2 Goals Not Met LT,2,3,4 Revised Goals none Plan Plan Continue per initial POC Frequency of Therapy 2 x/wk Duration of therapy 8 wks Time and Billing Re-Eval Time 15 Re-Eval Billing Units 1 PHYSICIAN CERTIFICATION: I certify the specified therapy services for Sheri Laughlin are required, authorized, and reviewed every 30 days.
--- NOTE | 2022-02-11 14:53 | HMH.RHREAS ---
Rehab Reassessment Rehab OP Re-assessment Start: 10/02/21 13:50 Freq: Status: Active Protocol: Document 02/11/22 14:51 RYAN (Rec: 02/11/22 14:53 RYAN [id number]) Electronically Signed By Ganga Soriano, PT 02/11/22 14:51 Rehab Re-assessment Subjective Subjective Pt with no c/o pain and reports less edema in her legs now. Objective Objective Notes R UE forearm with decreasing firmness in the tissue and milder fibrotic tissue quality during palpation. 2+ pitting edema remains at anterior distal forearm and wrist. Assessment Progress Assessment Progressing as Expected Assessment Notes Cotninues to show steady decreases in edema overall with improving tissue quality throughout the R UE. R forearm remains more edematous compared to previous treatments. Patient goals met ST,2 Goals Not Met LT,2,3,4 Revised Goals none Plan Plan Continue per initial POC Frequency of Therapy 2 x/wk Duration of therapy 8 wks Time and Billing Re-Eval Time 15 Re-Eval Billing Units 1 PHYSICIAN CERTIFICATION: I certify the specified therapy services for Sheri Laughlin are required, authorized, and reviewed every 30 days.
--- NOTE | 2022-03-12 13:42 | HMH.RHREAS ---
Rehab Reassessment Rehab OP Re-assessment Start: 10/02/21 13:50 Freq: Status: Active Protocol: Document 03/12/22 13:40 RYAN (Rec: 03/12/22 13:42 RYAN [id number]) Electronically Signed By Ganga Soriano, PT 03/12/22 13:40 Rehab Re-assessment Subjective Subjective Pt reports, My hand is swollen today, but I think it' s because I ate some country ham the other day. Objective Objective Notes R UE forearm with decreasing firmness in the tissue and milder fibrotic tissue quality during palpation. 2+ pitting edema remains at anterior distal forearm and wrist, moving into the R hand this date. Assessment Progress Assessment Progressing as Expected Assessment Notes Pt edema of the R UE continues to fluctuate intermittently. She has significant change this date with increased R hand edema. Pt also with slightly increased R LE edema as well. Patient goals met ST,2 Goals Not Met LT,2,3,4 Revised Goals none Plan Plan Continue per initial POC Frequency of Therapy 2 x/wk Duration of therapy 8 wks Time and Billing Re-Eval Time 15 Re-Eval Billing Units 1 PHYSICIAN CERTIFICATION: I certify the specified therapy services for Sheri Laughlin are required, authorized, and reviewed every 30 days.
--- NOTE | 2022-04-16 13:51 | HMH.RHREAS ---
Rehab Reassessment Rehab OP Re-assessment Start: 10/02/21 13:50 Freq: Status: Active Protocol: Document 04/16/22 13:49 RYAN (Rec: 04/16/22 13:51 RYAN [id number]) Electronically Signed By Ganga Soriano, PT 04/16/22 13:49 Rehab Re-assessment Subjective Subjective Pt reports, My fingers stay numb and my hand keeps swelling, I don't know why. Objective Objective Notes R UE forearm with decreasing firmness in the tissue and milder fibrotic tissue quality during palpation. 1+ pitting edema remains at anterior distal forearm and wrist, moving into the R hand this date. Assessment Progress Assessment Progressing as Expected Assessment Notes Pt continues to have significant edema in the R UE throughout. She does appear to have less fibrotic edema this date, however. She continues with her home treatment as instructed. Patient goals met ST,2 Goals Not Met LT,2,3,4 Revised Goals none Plan Plan Continue per initial POC Frequency of Therapy 2 x/wk Duration of therapy 8 wks Time and Billing Re-Eval Time 14 Re-Eval Billing Units 1 PHYSICIAN CERTIFICATION: I certify the specified therapy services for Sheri Laughlin are required, authorized, and reviewed every 30 days.
--- NOTE | 2022-05-23 11:24 | HMH.RHREAS ---
Rehab Reassessment Rehab OP Re-assessment Start: 10/02/21 13:50 Freq: Status: Active Protocol: Document 05/23/22 11:22 RYAN (Rec: 05/23/22 11:24 RYAN [id number]) Electronically Signed By Ganga Soriano, PT 05/23/22 11:22 Rehab Re-assessment Subjective Subjective Pt reports no c/o pain or numbess this date, 010. Objective Objective Notes R UE forearm with decreasing firmness in the tissue and milder fibrotic tissue quality during palpation. 1+ pitting edema remains at anterior distal forearm and wrist. No pitting edema noted in the R hand at this time. Assessment Progress Assessment Progressing as Expected Assessment Notes Continues to decrease edema overall, but fluctuations remain frequent. Chronic R UE lymphedema remains difficult to control, but pain is decreased. Significant improvement in R hand edema. Patient goals met ST,2 Goals Not Met LT,2,3,4 Revised Goals none Plan Plan Continue per initial POC Frequency of Therapy 2 x/wk Duration of therapy 8 wks Time and Billing Re-Eval Time 16 Re-Eval Billing Units 1 PHYSICIAN CERTIFICATION: I certify the specified therapy services for Sheri Laughlin are required, authorized, and reviewed every 30 days.
--- NOTE | 2022-06-18 14:53 | HMH.RHREAS ---
Rehab Reassessment Rehab OP Re-assessment Start: 10/02/21 13:50 Freq: Status: Active Protocol: Document 06/18/22 14:51 RYAN (Rec: 06/18/22 14:53 RYAN [id number]) Electronically Signed By Ganga Soriano, PT 06/18/22 14:51 Rehab Re-assessment Subjective Subjective Pt again with no c/o pain today, feeling slightly better . Objective Objective Notes R UE forearm with decreasing firmness in the tissue and milder fibrotic tissue quality during palpation. 1+ pitting edema remains at anterior distal forearm. No pitting edema noted in the R hand at this time. Assessment Progress Assessment Progressing as Expected Assessment Notes Continues to show improvements in all R UE edema averall. R forearm remains difficult to decrease, but has improved. Pt tolerates all compression therapy without c/o. Patient goals met ST,2 Goals Not Met LT,2,3,4 Revised Goals none Plan Plan Continue per initial POC Frequency of Therapy 2 x/wk Duration of therapy 8 wks Time and Billing Re-Eval Time 14 Re-Eval Billing Units 1 PHYSICIAN CERTIFICATION: I certify the specified therapy services for Sheri Laughlin are required, authorized, and reviewed every 30 days.
--- NOTE | 2022-07-23 14:11 | HMH.RHREAS ---
Rehab Reassessment Rehab OP Re-assessment Start: 10/02/21 13:50 Freq: Status: Active Protocol: Document 07/23/22 14:08 RYAN (Rec: 07/23/22 14:11 RYAN [id number]) Electronically Signed By Ganga Soriano, PT 07/23/22 14:08 Rehab Re-assessment Subjective Subjective Pt with no c/o pain or tenderness to palpation throughout the R UE this date. Objective Objective Notes R UE forearm with decreasing firmness in the tissue and more 'doughy' fibrotic tissue quality during palpation. 1+ pitting edema remains at medial distal forearm. Mild 1+ pitting edema noted in the R hand at this time. Assessment Progress Assessment Progressing as Expected Assessment Notes Pt has shown significant decrease in overall fibrotic edema, but increased pitting in the R hand. Edema continues to fluctuate between visits. Continues to tolerate compression well. Patient goals met ST,2 Goals Not Met LT,2,3,4 Revised Goals none Plan Plan Continue per initial POC Frequency of Therapy 2 x/wk Duration of therapy 8 wks Time and Billing Re-Eval Time 16 Re-Eval Billing Units 1 PHYSICIAN CERTIFICATION: I certify the specified therapy services for Sheri Laughlin are required, authorized, and reviewed every 30 days.
--- NOTE | 2022-08-20 14:35 | HMH.RHREAS ---
Rehab Reassessment Rehab OP Re-assessment Start: 10/02/21 13:50 Freq: Status: Active Protocol: Document 08/20/22 14:32 BETHLaurenSARAH (Rec: 08/20/22 14:35 PHOMARIAELENA [id number]) E-signed By Ganga Soriano, PT Rehab Re-assessment Subjective Subjective Pt reports, I don't think I'm doing as well today, I'm going to take more lasix when I get home. Objective Objective Notes R UE forearm with increased firmness in the tissue and less 'doughy' , more fibrotic tissue quality during palpation. 1+ pitting edema remains at medial distal forearm. Increased 1+ pitting edema noted in the R hand at this time. Assessment Progress Assessment Slower Than Expected Assessment Notes Pt has shown mild improvements at times, but has increased edema this date with no changes in activity. Worsening edema in the hand is significant sign of total increase in R UE edema. No increased pain today. Patient goals met ST,2 Goals Not Met LT,2,3,4 Revised Goals none Plan Plan Continue per initial POC Frequency of Therapy 2 x/wk Duration of therapy 8 wks Time and Billing Re-Eval Time 16 Re-Eval Billing Units 1 PHYSICIAN CERTIFICATION: I certify the specified therapy services for Sheri Laughlin are required, authorized, and reviewed every 30 days.
== END 2022-09-19 14:00 | disposition home or self-care (01) ==
LOC: PT 13:00
PROVIDERS: PCP Internal Medicine Adolescent Medicine; Visit Provider Nurse Practitioner Family
DX: I89.0 Lymphedema, not elsewhere classified (principal); L03.113 Cellulitis of right upper limb
CPT/HCPCS: 97140; 97162; 97164

== ENCOUNTER 2023-02-05 11:58 | Emergency (ER) | payer MEDICARE, SELFPAY ==
[2023-02-05 12:20] VITALS: BP 112/52; PULSE 86; RESP 22; TEMP 37; O2SAT 98; BMI 29.6
--- NOTE | 2023-02-05 12:42 | EXP.UTC ---
Discharge Plan Disposition Patient Disposition: Home, Self-Care Condition: Good Prescriptions Prescriptions: No Action sucralfate 1 gram tablet 1,000 mg PO TID 22 Days Qty: 90 nebivolol 10 mg tablet 10 mg PO DAILY 30 Days Qty: 30 Label Comments: TAKE 1 TABLET BY MOUTH EVERY DAY meclizine 25 mg tablet PO escitalopram oxalate 5 mg tablet 5 mg PO mupirocin 2 % ointment 1 applic TOPICAL BID 30 Days Qty: 15 0RF buspirone 10 mg tablet 10 mg PO . 30 Days Label Comments: omeprazole 20 mg capsule,delayed release(DR/EC) 20 mg PO . 30 Days Label Comments: [id number]-aafxgufr-[id number] 36,000-114,000- 180,000 unit capsule,delayed release(DR/EC) 36,000 - 114,000 units PO . 30 Days Qty: 90 Label Comments: cholecalciferol (vitamin D3) 2,000 unit capsule 2,000 unit PO ONCE aspirin [Adult Low Dose Aspirin] 81 mg tablet,delayed release (DR/EC) 81 mg PO ONCE furosemide 40 mg tablet 40 mg PO ONCE cholestyramine-aspartame 4 gram powder 4 g PO docusate sodium [Colace] 100 mg capsule 100 mg PO DAILY polyethylene glycol 3350 [Miralax] 17 gram/dose powder 17 g PO DAILY potassium chloride 10 mEq capsule, extended release 10 meq PO Label Comments: TAKE ONE CAPSULE BY MOUTH EVERY DAY DIRECTED nystatin 15 GM powder 1 applic topical BID Rx Instructions: Referrals Follow up/Referrals: Ftamata Hercules APRN [Primary Care Provider] - See instructions Activity Restrictions/Add. Instructions Additional Instructions/Restrictions: Drink plenty of fluids. Take tylenol for pain. Follow up with your regular doctor. GO TO THE ER FOR ANY WORSENING SYMPTOMS Clinical Impressions Clinical Impression: Pain in right knee, Weakness Instructions Patient Instructions: DI for Knee Pain, DI for Muscle Weakness Discharge ED Provider: Kedar Denney [facility] General Stated complaint: Shakey, Fever, bodyaches, weakness Mode of Arrival: Ambulatory Source of Information: Patient Limitations: No Limitations Time Seen by Provider: 02/05/23 12:40 HEENT Symptoms (Recalled from RN notes): No Resp Symptoms (Recalled from RN notes): No Skin Symptoms (Recalled from RN notes): No MS Symptoms (Recalled from RN notes): No Functional Status (Recalled from RN notes): WNL History of Present Illness Provider Complaint: PATIENT C/O FEVER, SHAKEY, TROUBLE WALKING, AND BODY ACHES IN LEGS AND BACK SINCE YESTERDAY Related Data Home Medications Medication Instructions Recorded Confirmed aspirin 81 mg tablet,delayed 81 mg PO ONCE . 01/26/18 10/21/22 release (Adult Low Dose Aspirin) buspirone 10 mg tablet 10 mg PO . . 30 days 01/26/18 10/21/22 cholecalciferol (vitamin D3) 50 2,000 unit PO ONCE . 01/26/18 10/21/22 mcg (2,000 unit) capsule furosemide 40 mg tablet 40 mg PO ONCE . 01/26/18 10/21/22 iwvfmj-wwinsjfb-jzfhqog 36,000 - 114,000 units PO . . 30 01/26/18 10/21/22 36,000-114,000-180,000 unit days ##90 capsule,delay rel omeprazole 20 mg capsule,delayed 20 mg PO . . 30 days 01/26/18 10/21/22 release sucralfate 1 gram tablet 1,000 mg PO TID , 22 days ##90 03/24/18 10/21/22 nebivolol 10 mg tablet 10 mg PO DAILY . 30 days #30 tabs 02/18/19 10/21/22 nystatin 100,000 unit/gram topical 1 applic topical BID . 07/02/19 10/21/22 powder meclizine 25 mg tablet mg PO 12/06/19 10/21/22 cholestyramine-aspartame 4 gram 4 g PO 06/29/20 10/21/22 oral powder docusate sodium 100 mg capsule 100 mg PO DAILY 06/29/20 10/21/22 (Colace) polyethylene glycol 3350 17 17 g PO DAILY 06/29/20 10/21/22 gram/dose oral powder (Miralax) escitalopram oxalate 5 mg tablet 5 mg PO 09/28/20 10/21/22 potassium chloride 10 mEq 10 meq PO 04/11/22 10/21/22 capsule,extended release Previous Rx's Medication Instructions Recorded mupirocin 2 % topical ointment 1 applic topical BID 30 days #15 01/10/
--- NOTE | 2023-02-05 12:43 | XR_ITS ---
FINAL REPORT CLINICAL HISTORY: FEVER COMPARISON: none FINDINGS: Two views of the chest were obtained. The heart size and pulmonary vascularity are within normal limits. There is a large hiatal hernia. No acute pulmonary abnormality is identified. There is no pneumothorax. There is fusion of multiple thoracic vertebra most worrisome for ankylosing spondylolysis. IMPRESSION: No acute cardiopulmonary process. Thoracic spine findings worrisome for ankylosing spondylolysis. Reviewed, Interpreted and Dictated by Shaun Leal III, MD Transcribed by Christine Palmer Authenticated and [facility]
[2023-02-05 12:45] LABS: UTC Influenza A Antigen Negative (Negative)
[2023-02-05 12:46] LABS: UTC Influenza B Antigen Negative (Negative)
[2023-02-05 13:47] VITALS: BP 112/52; PULSE 86; RESP 22; TEMP 37; O2SAT 98
== END 2023-02-05 13:53 | disposition home or self-care (01) ==
PROVIDERS: Emergency Provider Nurse Practitioner Family; PCP Nurse Practitioner Family
DX: R53.1 Weakness (principal); M25.561 Pain in right knee; M54.9 Dorsalgia, unspecified; R50.9 Fever, unspecified
CPT/HCPCS: 71046; 87804; 96372; 99212; 99214; G0463

== ENCOUNTER 2023-07-14 13:00 | Outpatient (RCR) | payer MEDICARE, SELFPAY ==
--- NOTE | 2023-02-20 15:42 | HMH.PTOPWND ---
Rehab Outpt Wound Evaluation Rehab OP Wound Evaluation Start: 02/20/23 15:32 Freq: Status: Active Protocol: Document 02/20/23 15:32 RYAN (Rec: 02/20/23 15:41 PHORSARAH [id number]) E-signed By Ganga Soriano, PT Subjective/History History History This is the initial PT eval for Sheri Laughlin 88 yowf who presents with c/o continued worsening R UE lymphedema. Pt has hx of R side breast cancer with mastectomy and many year hx of R UE lymphedema. She reports symptoms continue to steadily worsen despite compression garments at home. 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 She also has suffered steady functional decline over the past several years and requires 24 hr assist with all ADLs. Subjective Subjective Pt currently reports minimal discomfort in the R UE. She has significant rigid, fibrotic edema throughout the R forearm and brachium. She also has 2+ pitting edema throughout the R UE and into the R hand. Lymphedema Eval Classification of Lymphedema Secondary Lymphedema Yes Stemmer's sign Stemmer's Sign yes Stage of Lymphedema Lymphedema stages Stage III (Non-pitting, fibrosis and sclerosis, skin changes) Skin Changes Dry Skin Yes Skin Folds Yes Redness Yes Discoloration of Skin Yes Other Changes Yes Affected Extremities Areas Affected by Lymphedema/Edema Right Upper Extremity,Right Axilla Manual Lymphatic Drainage Treatment Area MLD Treatment Area Right Upper Extremity,Right Axilla Wound Problems/Impairments Impairments Problems/Impairmments Palpation Tenderness,Impaired Range of Motion,Impaired Strength,Impaired Endurance, Impaired Transfers,Impaired Gait Pattern,Impaired Walking, Impaired Standing,Impaired
--- NOTE | 2023-03-24 14:00 | HMH.RHREAS ---
Rehab Reassessment Rehab OP Re-assessment Start: 03/24/23 13:53 Freq: Status: Active Protocol: Document 03/24/23 13:54 RYAN (Rec: 03/24/23 14:00 RYAN [id number]) E-signed By Ganga Soriano, PT Rehab Re-assessment Subjective Subjective Pt reports she feels pretty good overall, but continues to have difficulty lifting her R UE. Objective Objective Notes Circumferential Measurements: R UE total 243.3 cm which is - 6.5 cm since initial eval. Edema: R UE remains fibrotic with 'doughy' consistency throughout, except R hand which is showing 1+ pitting edema. Assessment Progress Assessment Slower Than Expected Assessment Notes Pt has shown mild decrease in overall pitting edema in the R UE, but Fibrotic edema remains persistent despite compression and elevation for > 4 wks. She continues to need skilled intervention to reduce edema and return to prior levels of ADL. Patient goals met ST,2,[address] LT,2,3,4,5 Revised Goals none Plan Plan Continue per initial POC. Frequency of Therapy 2 x/wk Duration of therapy 4 wks Time and Billing Re-Eval Time 13 Re-Eval Billing Units 1 PHYSICIAN CERTIFICATION: I certify the specified therapy services for Sheri Laughlin are required, authorized, and reviewed every 30 days.
--- NOTE | 2023-06-17 16:03 | HMH.RHREAS ---
Rehab Reassessment Rehab OP Re-assessment Start: 03/24/23 13:53 Freq: Status: Active Protocol: Document 06/17/23 15:55 BETHLaurenSARAH (Rec: 06/17/23 16:03 RYAN [id number]) E-signed By Ganga Soriano, PT Rehab Re-assessment Subjective Subjective Pt reports she continues to have difficulty raising her R UE. I can't get things out of the top of the fridge, I have to put this arm up in the shelf on the door to hold it up there. Objective Objective Notes Edema: R UE remains fibrotic with 'doughy' consistency throughout, Increased pitting edema to medial distal area of forearm this date. Less stiffness during palpation in forearm this date. R hand shown minimal pitting edema, as well. Assessment Progress Assessment Progressing as Expected Assessment Notes Pt with significant improvements in R UE fibrotic edema, especially in the elbow and proximal forearm. She continues to have difficulty with all R UE ADLs due to heaviness of the R UE with increased edema. She continues to need skilled intervention to return to prior level of function. . Patient goals met ST,2,3,4 Goals Not Met LT,2,3,4,5 Revised Goals none Plan Plan Continue per initial POC. Frequency of Therapy 2 x/wk Duration of therapy 4 wks Time and Billing Re-Eval Time 14 Re-Eval Billing Units 1 PHYSICIAN CERTIFICATION: I certify the specified therapy services for Sheri Laughlin are required, authorized, and reviewed every 30 days.
== END 2023-07-14 14:00 | disposition home or self-care (01) ==
LOC: PT 13:00
PROVIDERS: PCP Nurse Practitioner Family; Visit Provider Nurse Practitioner Family
DX: I89.0 Lymphedema, not elsewhere classified (principal); R60.0 Localized edema
CPT/HCPCS: 97140; 97163; 97164

== ENCOUNTER 2023-12-09 11:36 | Emergency (ER) | payer MEDICARE, SELFPAY ==
[2023-12-09 11:55] VITALS: BP 192/76; PULSE 67; RESP 18; TEMP 36.6; O2SAT 97
--- NOTE | 2023-12-09 12:16 | ED_ITS ---
Discharge Plan Disposition Patient Disposition: Home, Self-Care Condition: Good Prescriptions Prescriptions: New phenazopyridine [Pyridium] 200 mg tablet 200 mg PO Q8H 2 Days Qty: 6 0RF nitrofurantoin monohyd/m-cryst [Macrobid] 100 mg Capsule 100 mg PO BID Qty: 10 0RF Rx Instructions: must administer with a meal/food No Action sucralfate 1 gram tablet 1,000 mg PO TID 22 Days Qty: 90 nebivolol 10 mg tablet 10 mg PO DAILY 30 Days Qty: 30 Patient Comments: TAKE 1 TABLET BY MOUTH EVERY DAY omeprazole magnesium [Prilosec OTC] 20 mg tablet,delayed release (DR/EC) 20 mg PO DAILY buspirone 10 mg tablet 10 mg PO TID 30 Days Patient Comments: [id number]-[id number] 36,000-114,000- 180,000 unit capsule,delayed release(DR/EC) 36,000 - 114,000 units PO . 30 Days Qty: 90 Patient Comments: cholecalciferol (vitamin D3) 2,000 unit capsule 2,000 unit PO ONCE aspirin [Adult Low Dose Aspirin] 81 mg tablet,delayed release (DR/EC) 81 mg PO ONCE furosemide 40 mg tablet 40 mg PO ONCE docusate sodium [Colace] 100 mg capsule 100 mg PO NEEDED PRN (Reason: Constipation) polyethylene glycol 3350 [Miralax] 17 gram/dose powder 17 g PO DAILY potassium chloride 10 mEq capsule, extended release 10 meq PO DAILY Patient Comments: TAKE ONE CAPSULE BY MOUTH EVERY DAY DIRECTED nystatin 15 GM powder 1 applic topical BID Rx Instructions: Referrals Follow up/Referrals: Provider,Referral, MD [Primary Care Provider] - See instructions Activity Restrictions/Add. Instructions Additional Instructions/Restrictions: Drink plenty of fluids. Take tylenol or ibuprofen for pain or fever. Take the medications as directed. Follow up with your regular doctor. GO TO THE ER FOR ANY WORSENING SYMPTOMS The pyridium will make your urine turn orange, this is an expected side effect. It will stain your clothes if it comes into contact with them. We will culture the urine. That will tell what bacteria is causing your infection and which antibiotics will treat it best. Sometimes the first antibiotic we prescribe turns out to not work against different bacteria. So, make sure you follow up within 3 days if you are not getting better. Clinical Impressions Clinical Impression: UTI (urinary tract infection) Instructions Patient Instructions: Urinary Tract Infection, Urine Culture, Phenazopyridine Discharge ED Provider: Kedar Denney [facility] HPI General Stated complaint: blood in urine Time Seen by Provider: 12/09/23 12:16 History of Present Illness Provider Complaint: She states that for the past 1 day she has had dysuria and hematuria. Related Data Home Medications Medication Instructions Recorded Confirmed aspirin 81 mg tablet,delayed 81 mg PO ONCE . 01/26/18 07/23/23 release (Adult Low Dose Aspirin) buspirone 10 mg tablet 10 mg PO TID . 30 days 01/26/18 12/09/23 cholecalciferol (vitamin D3) 50 2,000 unit PO ONCE . 01/26/18 12/09/23 mcg (2,000 unit) capsule furosemide 40 mg tablet 40 mg PO ONCE . 01/26/18 12/09/23 mysavp-exgzdnkl-kpclamh 36,000 - 114,000 units PO . . 30 01/26/18 07/23/23 36,000-114,000-180,000 unit days ##90 capsule,delay rel sucralfate 1 gram tablet 1,000 mg PO TID , 22 days ##90 03/24/18 07/23/23 nebivolol 10 mg tablet 10 mg PO DAILY . 30 days #30 tabs 02/18/19 12/09/23 nystatin 100,000 unit/gram topical 1 applic topical BID . 07/02/19 07/23/23 powder docusate sodium 100 mg capsule 100 mg PO NEEDED PRN 06/29/20 12/09/23 (Colace) Constipation polyethylene glycol 3350 17 17 g PO DAILY 06/29/20 12/09/23 gram/dose oral powder (Miralax) potassium chloride 10 mEq 10 meq PO DAILY 04/11/22 12/09/23 capsule,extended release omeprazole magnesium 20 mg 20 mg PO DAILY 07/23/23 12/09/23 tablet,delayed release (Prilosec OTC) Previous Rx's Medication Instructions Recorded nitrofurantoin 100 mg PO BID #10 caps 12/09/23 monohydrate/macrocrystals 100 mg capsule (Macrobid) phenazopyridine 200 mg tablet 200 mg PO Q8H 2 days #6 tabs 12/09/23 (Pyridium) Allergies Allergy/AdvReac Type Severity Reaction Status Date / Time atorvastatin [ATORVASTATIN] Allergy Unknown MUSCLE, Verified 07/23/23 13:09 UNABLE TO WALK cefuroxime [CEFUROXIME] Allergy Unknown I-RASH Verified 07/23/23 13:09 clindamycin [CLINDAMYCIN] Allergy Unknown Verified 07/23/23 13:09 duloxetine [DULOXETINE] Allergy Unknown NA-NAUSEA Verified 07/23/23 13:09 gabapentin [GABAPENTIN] Allergy Unknown SHAKEY Verified 07/23/23 13:09 penicillin V [PENICILLIN V] Allergy Unknown I-RASH, Verified 07/23/23 13:09 NAUSEA tegaserod [From ZELNORM] Allergy Unknown NA-NAUSEA Verified 07/23/23 13:09 tetracycline [TETRACYCLINE] Allergy Unknown RASH, Verified 07/23/23 13:09 NAUSEA tramadol [TRAMADOL] Allergy Unknown Verified 07/23/23 13:09 Cephalosporins Allergy Verified 12/09/23 12:18 [facility] Disclaimer: The information contained in this section may have been updated after the patient was seen, as this information can be updated by other users. Social History Smoking Status: Never smoker alcohol intake: never current occupational status: other Travel in the last 8 weeks: None household members: other housing: house ROS Obtained: Yes All systems reviewed & no additional complaints except as documented Constitutional Constitutional: Reports system reviewed and no additional complaints, except as documented, Denies chills and Denies fever(s) Eyes Eyes: Denies eye discharge ENT Ears, Nose, Mouth, and Throat: Denies dysphagia, Denies sore throat and Denies throat swelling Cardiovascular Cardiovascular: Denies chest pain and Denies dyspnea Respiratory Respiratory: Denies chest congestion, Denies cough and Denies dyspnea Gastrointestinal Gastrointestingal: Denies abdominal pain, constipation, diarrhea, dysphagia, nausea or vomiting Genitourinary Female Genitourinary: Reports as per HPI, Reports dysuria, Reports urinary frequency, Denies urinary incontinence, Reports urinary hesitancy and Reports urinary urgency Musculoskeletal Musculoskeletal: Denies arthralgias and Reports back pain Integumentary/Breasts Skin/Breast: Denies rash Neurologic Neurologic: Denies paresthesias Allergic/Immunologic Allergic/Immunologic: Denies throat swelling Physical Exam General General appearance: alert and in no apparent distress Head Head exam: atraumatic and normocephalic Eye Eye exam: Present normal appearance, PERRL and EOMI ENT ENT exam: Present normal exam, mucous membranes moist, TM's normal bilaterally and normal external ear exam Neck Neck exam: Present normal inspection, full ROM and trachea midline; Absent tenderness, meningismus or lymphadenopathy Chest Chest inspection: Present normal inspection and symmetric chest wall rise; Absent tenderness Respiratory Respiratory exam: Present normal lung sounds bilaterally; Absent respiratory distress, wheezes or stridor Cardiovascular Cardiovascular exam: Present regular rate, normal rhythm and normal heart sounds Abdominal Exam Abdominal exam: Present soft and normal bowel sounds; Absent distention, tenderness, guarding, rebound, rigidity, incision, psoas sign, obturator sign, heel tap sign, Tang's sign, Rovsing's sign or tenderness at McBurney's Point Extremities Exam Extremities exam: Present normal inspection, full ROM and normal capillary refill; Absent tenderness, edema, joint swelling, calf tenderness or cyanosis Back Exam Back exam: Present normal inspection and full ROM; Absent tenderness, CVA tenderness (R) or CVA tenderness (L) Neurological Exam Neurological exam: Present alert, oriented X3 and normal gait Psychiatric Psychiatric exam: Present normal affect and normal mood Skin Skin exam: Present warm, dry, intact and normal color Lymphatic Lymphatic Findings: no adenopathy Medical Decision Making Medical Records Medical records reviewed: No I reviewed the patient's medical records. Matt Inquiry Pt receiving controlled substance: No Lab Data Lab results reviewed: Yes I reviewed the patient's lab results.
[2023-12-09 12:52] LABS: Apearance,Urine Turbid (Clear); Color,Urine Red (Yellow); Protein,Urine 1+ (Negative); Specific Gravity, Urine 1.015 (1.005-1.030)
[2023-12-09 12:53] LABS: Bilirubin,Urine Negative (Negative); Blood, Urine 3+ (Negative); Glucose,Urine (UA) Negative (Negative); Ketones,Urine Negative (Negative); UTC Leukocyte Esterase,Urine 3+ (Negative); UTC Nitrate,Urine Negative (Negative); Urobilinogen,Urine 1 EU/dl (0.2)
[2023-12-09 13:19] VITALS: BP 192/76; PULSE 67; RESP 18; TEMP 36.6; O2SAT 97
== END 2023-12-09 13:19 | disposition home or self-care (01) ==
PROVIDERS: Emergency Provider Nurse Practitioner Family
DX: N39.0 Urinary tract infection, site not specified (principal); B96.29 Other Escherichia coli [E. coli] as the cause of diseases classified elsewhere; R31.9 Hematuria, unspecified
CPT/HCPCS: 81003; 87086; 99212; 99214; G0463

== ENCOUNTER 2024-02-03 12:23 | Inpatient (IN) | payer MEDICARE, SELFPAY ==
[2024-02-03] VITALS (9 sets, daily range): BP systolic 77–140; BP diastolic 54–112; PULSE 60–106; RESP 14–22; TEMP 36.7; O2SAT 94–100; BMI 30.4
--- NOTE | 2024-02-03 12:28 | ECG_ITS ---
APPROVED REPORT Exam: Resting ECG HR:99 bpm ECG Measurements Heart Rate 99 AXES QRSd 83 QRS 65 QT 360 T 89 QTc 416 Conclusion ATRIAL FIBRILLATION MODERATE ST DEPRESSION [0.05+ mV ST DEPRESSION] ABNORMAL ECG UNCONFIRMED REPORT Electronically signed by : ABDELRAHMAN ABRAHAM, 02/04/2024 06:16:33
--- NOTE | 2024-02-03 12:42 | CT_ITS ---
FINAL REPORT TECHNIQUE: Pre-and postcontrast images of the abdomen through the pelvis were performed by computed tomography. Extensive 3-D reconstruction images were performed. A CTA was performed. This study was performed with techniques to keep radiation doses as low as reasonably achievable (ALARA). Individualized dose reduction techniques using automated exposure control or adjustment of mA and/or kV according to the patient's size were employed. CLINICAL HISTORY: trauma, critical injury suspected COMPARISON: None FINDINGS: ABDOMEN: Precontrast images demonstrate no evidence of nephrolithiasis. No adrenal masses are identified. The liver, spleen and pancreas are unremarkable. Postcholecystectomy. There is mild anasarca. There is no evidence abdominal mass or adenopathy. PELVIS: The appendix is normal. There are multiple sigmoid diverticula. There is a large amount of stool in the rectum worrisome for fecal impaction. The urinary bladder is unremarkable. Walter catheter is present. There is no significant free fluid or adenopathy. The bony pelvis is unremarkable. CTA: There is no evidence of abdominal aortic aneurysm or dissection. There are moderate vascular calcifications. 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 There is mild stenosis in the proximal SMA. There is no evidence of right renal artery stenosis. There is calcified plaque at the origin of the left renal artery without evidence of stenosis. The MEET is patent. The iliac arteries are normal without evidence of stenosis. 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 Mild stenosis of the proximal SMA. Large amount of stool in the rectum worrisome for fecal impaction. Mild anasarca. Reviewed, Interpreted and Dictated by Shaun Leal III, MD Transcribed by Christine Palmer Authenticated and [facility]
--- NOTE | 2024-02-03 12:42 | CT_ITS ---
FINAL REPORT TECHNIQUE: Thin-section axial CT with IV contrast supplemented with multi planar reconstruction under CT angiogram protocol was performed of the neck. This study was performed technique to keep radiation doses as low as reasonably achievable, (ALARA). NASCET criteria was utilized during interpretation. CLINICAL HISTORY: trauma, critical injury suspected COMPARISON: None FINDINGS: Aortic arch: Arch shows no significant narrowing. Great vessel origins are widely patent. Right carotid: There is calcified plaque at the right carotid bifurcation. There is no evidence of significant stenosis or occlusion. Left carotid: The left CCA is unremarkable. There is mild stenosis of the left carotid bulb, less than 50%. The more distal ICA is patent. 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 The left vertebral artery is patent. 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 Mild stenosis left carotid bulb, less than 50%. Reviewed, Interpreted and Dictated by Shaun Leal III, MD Transcribed by Christine Palmer Authenticated and [facility]
--- NOTE | 2024-02-03 12:42 | CT_ITS ---
FINAL REPORT TECHNIQUE: Thin section axial CT with IV contrast supplemented with multiplanar reconstruction under CT angiogram protocol. 3-D reconstructions were performed. This study was performed with techniques to keep radiation doses as low as reasonably achievable (ALARA). Individualized dose reduction techniques using automated exposure control or adjustment of mA and/or kV according to the patient''s size were employed. CLINICAL HISTORY: trauma, critical injury suspected COMPARISON: None FINDINGS: The distal vertebral, basilar and distal internal carotid arteries have an unremarkable appearance. No aneurysm is seen. Major intracranial vessels are patent without significant stenosis. IMPRESSION: No evidence of occlusion or significant stenosis. Reviewed, Interpreted and Dictated by Shaun Leal III, MD Transcribed by Christine Palmer Authenticated and [facility]
--- NOTE | 2024-02-03 12:42 | CT_ITS ---
FINAL REPORT TECHNIQUE: Axial images through the pelvis were performed by computed tomography. Sagittal and coronal reformatted images were obtained and reviewed. This study was performed with techniques to keep radiation doses as low as reasonably achievable (ALARA). Individualized dose reduction techniques using automated exposure control or adjustment of mA and/or kV according to the patient's size were employed. CLINICAL HISTORY: trauma, critical injury suspected FINDINGS: There is angulation of the sacrococcygeal junction consistent with a fracture of uncertain age. Walter catheter is identified. There is a large amount of stool in the rectum worrisome for fecal impaction. IMPRESSION: Fracture of the sacrococcygeal junction of uncertain age. If indicated, MRI could further evaluate. Findings worrisome for fecal impaction. Reviewed, Interpreted and Dictated by Shaun Leal III, MD Transcribed by Nahed Diez Authenticated and [facility]
--- NOTE | 2024-02-03 12:42 | CT_ITS ---
FINAL REPORT CLINICAL HISTORY: trauma, critical injury suspected COMPARISON: None FINDINGS: Thin section axial CT images of the chest were obtained with contrast. 3D reformatted images were also obtained. This study was performed with techniques to keep radiation doses as low as reasonably achievable (ALARA). Individualized dose reduction techniques using automated exposure control or adjustment of mA and/or kV according to the patient''s size were employed. There is no evidence of pulmonary embolism. There is no evidence of thoracic aortic aneurysm or dissection. There is no evidence of mediastinal or hilar mass or adenopathy. Note is made of a prominent ductus bump favored to represent normal variation. There is a large hiatal hernia. There is no evidence of pulmonary mass or nodule. Bilateral pulmonary opacities are favored to represent edema. There is a small left pleural effusion. IMPRESSION: No evidence of pulmonary embolism. No mass or localized inflammatory process. Reviewed, Interpreted and Dictated by Shaun Leal III, MD Transcribed by Christine Palmer Authenticated and . [facility]
--- NOTE | 2024-02-03 12:42 | XR_ITS ---
FINAL REPORT CLINICAL HISTORY: fall FINDINGS: SINGLE-VIEW CHEST The heart size is normal. The mediastinum is normal. There is a large hiatal hernia. Left lung opacities worrisome for edema. There are postoperative changes in the right axilla. There are severe degenerative changes of the shoulders. There is no pneumothorax. IMPRESSION: Left lung opacities worrisome for edema. Large hiatal hernia. Reviewed, Interpreted and Dictated by Shaun Leal III, MD Transcribed by Nahed Diez Authenticated and [facility]
--- NOTE | 2024-02-03 12:42 | CT_ITS ---
FINAL REPORT TECHNIQUE: Axial images through the thoracic spine were performed. Sagittal reconstruction images were performed. This study was performed with techniques to keep radiation doses as low as reasonably achievable, (ALARA). Individualized dose reduction techniques using automated exposure control or adjustment of mA and/or kV according to the patient's size were employed. CLINICAL HISTORY: trauma, critical injury suspected FINDINGS: No acute fracture is identified. There is fusion of the entire thoracic spine, may represent ankylosing spondylitis or DISH. There is abnormal widening of the T12-L1 disc space with significant endplate changes favored to represent severe degenerative endplate changes but ligamentous injury at this level can not be excluded. IMPRESSION: Fusion of the entire thoracic spine, may represent ankylosing spondylitis or DISH. Abnormal widening of T12-L1 as detailed above, ligamentous injury can not be excluded. Follow-up MRI may be helpful. Reviewed, Interpreted and Dictated by Shaun Leal III, MD Transcribed by Nahed Diez Authenticated and [facility]
--- NOTE | 2024-02-03 12:42 | CT_ITS ---
FINAL REPORT TECHNIQUE: Axial images were performed through the lumbar spine by computed tomography. Sagittal reconstruction images were also performed. This study was performed with techniques to keep radiation doses as low as reasonably achievable, (ALARA). Individualized dose reduction techniques using automated exposure control or adjustment of mA and/or kV according to the patient''s size were employed. CLINICAL HISTORY: trauma, critical injury suspected FINDINGS: Motion artifact is identified on many of the images. There are severe degenerative changes. Dextroscoliosis is identified. The bones are osteopenic. IMPRESSION: Severe degenerative changes. Reviewed, Interpreted and Dictated by Shaun Leal III, MD Transcribed by Nahed Diez Authenticated and [facility]
--- NOTE | 2024-02-03 12:42 | CT_ITS ---
FINAL REPORT CLINICAL HISTORY: trauma, critical injury suspected FINDINGS: Axial CT images of the cervical spine were obtained without contrast. Sagittal and coronal reformatted images were also obtained. This study was performed with techniques to keep radiation doses as low as reasonably achievable (ALARA). Individualized dose reduction techniques using automated exposure control or adjustment of mA and/or kV according to the patient's size were employed. No acute fracture is identified. There are multilevel severe degenerative changes. There is mild central canal stenosis at C6-7. Multilevel neural foraminal narrowing is identified. IMPRESSION: Multilevel degenerative changes without acute fracture. Reviewed, Interpreted and Dictated by Shaun Leal III, MD Transcribed by Nahed Diez Authenticated and [facility]
--- NOTE | 2024-02-03 12:42 | CT_ITS ---
FINAL REPORT CLINICAL HISTORY: trauma, critical injury suspected FINDINGS: Axial images of the head were obtained without contrast. Coronal reformatted images were also obtained. This study was performed with techniques to keep radiation doses as low as reasonably achievable (ALARA). Individualized dose reduction techniques using automated exposure control or adjustment of mA and/or kV according to the patient's size were employed. There is generalized age-appropriate atrophy. Periventricular low-attenuation areas are seen consistent with Moderate chronic ischemic changes. There is no evidence of intracranial hemorrhage or mass. There is no evidence of acute infarct. There is no evidence of shift of the midline structures. No skull abnormality is seen on the bone window images. There is mucosal thickening of the maxillary sinuses. IMPRESSION: Atrophy and moderate periventricular chronic ischemic changes. No acute intracranial abnormality identified. Reviewed, Interpreted and Dictated by Shaun Leal III, MD Transcribed by Nahed Diez Authenticated and . [facility]
--- NOTE | 2024-02-03 12:43 | XR_ITS ---
FINAL REPORT CLINICAL HISTORY: fall FINDINGS: Pelvis Two views were obtained. There is no acute fracture or dislocation. Walter catheter is identified. There are degenerative changes in the lumbar spine and hips. No soft tissue abnormality is identified. IMPRESSION: No acute process. Reviewed, Interpreted and Dictated by Shaun Leal III, MD Transcribed by Nahed Diez Authenticated and [facility]
--- NOTE | 2024-02-03 12:47 | XR_ITS ---
FINAL REPORT CLINICAL HISTORY: fall FINDINGS: Left shoulder Three views were obtained. There are severe degenerative changes of the shoulder. There is widening of the AC joint. Loose body is seen adjacent to the humeral head measures 9 mm. No definite acute fracture is identified. IMPRESSION: Severe degenerative changes with loose body as above. Reviewed, Interpreted and Dictated by Shaun Leal III, MD Transcribed by Nahed Diez Authenticated and [facility]
--- NOTE | 2024-02-03 12:47 | XR_ITS ---
FINAL REPORT CLINICAL HISTORY: fall FINDINGS: Right shoulder Three views were obtained. There is no acute fracture or dislocation. 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 Postoperative changes are seen in the right axilla. IMPRESSION: Severe degenerative changes without acute bony abnormality. Reviewed, Interpreted and Dictated by Shaun Leal III, MD Transcribed by Nahed Diez Authenticated and [facility]
--- NOTE | 2024-02-03 12:47 | XR_ITS ---
FINAL REPORT CLINICAL HISTORY: fall FINDINGS: Right hand Two views were obtained. There is an impacted fracture of the distal radius. The bones are osteopenic. Moderate degenerative changes are present. IMPRESSION: Impacted fracture of the distal radius. Reviewed, Interpreted and Dictated by Shaun Leal III, MD Transcribed by Nahed Diez Authenticated and [facility]
--- NOTE | 2024-02-03 12:47 | XR_ITS ---
FINAL REPORT CLINICAL HISTORY: fall FINDINGS: Left humerus Two views were obtained. There is no acute fracture or dislocation. There are moderate degenerative changes of the elbow. No soft tissue abnormality is identified. IMPRESSION: No acute process. Reviewed, Interpreted and Dictated by Shaun Leal III, MD Transcribed by Nahed Diez Authenticated and [facility]
--- NOTE | 2024-02-03 12:47 | XR_ITS ---
FINAL REPORT CLINICAL HISTORY: fall FINDINGS: Right wrist Three views were obtained. There is an impacted fracture of the distal radius. Moderate degenerative changes are present. The bones are osteopenic. IMPRESSION: Impacted fracture of the distal radius. Reviewed, Interpreted and Dictated by Shaun Leal III, MD Transcribed by Nahed Diez Authenticated and [facility]
--- NOTE | 2024-02-03 12:47 | XR_ITS ---
FINAL REPORT CLINICAL HISTORY: fall FINDINGS: Left elbow Two views were obtained. There is no acute fracture or dislocation. There are moderate degenerative changes. Loose body is seen posteriorly measures 11 mm. IMPRESSION: Moderate degenerative changes with a loose body. Reviewed, Interpreted and Dictated by Shaun Leal III, MD Transcribed by Nahed Diez Authenticated and [facility] [place]
[2024-02-03 12:55] LABS: Basophils % 0.3 % (0.1-2.0); Eosinophils # 0.1 K/mm3 (0.0-0.4); Eosinophils % 0.7 % (0.1-12.0); Hematocrit 40.8 % (37.0-47.0); Hemoglobin 12.6 g/dL (12.2-16.2); Lymphocytes # 0.7 K/mm3 (0.7-4.5); Lymphocytes % 5.2 % (10-50); Mean Corpuscular HGB Conc 30.8 g/dL (31.8-35.4); Mean Corpuscular Hemoglobin 28.5 pg (27.0-31.2); Mean Corpuscular Volume 92.5 fl (81-99); Mean Platelet Volume 8.1 fl (7.4-10.4); Monocytes # 0.7 K/mm3 (0.1-1.0); Monocytes % 4.6 % (1.7-9.3); Neutrophils # 12.5 K/mm3 (1.8-7.8); Neutrophils % 89.1 % (37.0-80.0); Platelet Count 416 K/mm3 (142-424); Red Blood Count 4.41 M/mm3 (4.20-5.40); Red Cell Distribution Width 14.1 % (11.5-17.5)
[2024-02-03 12:57] LABS: MANUAL DIFFERENTIAL MANUAL DIFFERENTIAL (MANUAL DIFF)
--- NOTE | 2024-02-03 13:08 | PC.NURSE ---
Pt to radiology.
[2024-02-03 13:11] LABS: Activated Partial Thrombo Time 28.5 seconds (22.8-30.6); INR 1.07 (0.9-1.1); Prothrombin Time 11.5 seconds (10.1-12.5)
[2024-02-03 13:14] LABS: Alanine Aminotransferase 75 U/L (12-78); Albumin/Globulin Ratio 1.4 (1.1-1.8); Alkaline Phosphatase 134 U/L (38-126); Anion Gap 13.4 mEq/L (5-15); Aspartate Amino Transferase 229 U/L (14-36); Bilirubin,Total 1.1 mg/dl (0.2-1.3); Blood Urea Nitrogen 20 mg/dl (7-17); Calcium 9.1 mg/dl (8.4-10.2); Carbon Dioxide 25 mmol/L (22.0-30.0); Chloride 99 mmol/L (98-107); Creatinine Clearance Estimated 54 mL/min (50-200); Estimated Glomerular Filt Rate 59 ml/min (>60); GFR (African American) 71 ML/MIN (>60); Globulin 2.9 g/dL (1.3-3.2); Glucose 172 mg/dl (74-100); Lipase 49 U/L (23-300); Potassium 4.4 mmoL/L (3.5-5.1); Sodium 133 mmol/L (136-145); Total Protein,Serum 6.9 g/dl (6.3-8.2)
[2024-02-03 13:15] LABS: Lactic Acid 3.8 mmol/L (0.7-2.1)
[2024-02-03] MEDS: SODIUM CHLORIDE 0.9% 10ML SYR (RAD ONLY) 10 ML IV (13:17)
[2024-02-03] MEDS: 0.9 % SODIUM CHLORIDE 50 ML VIAL 100 ML IV (13:17)
[2024-02-03] MEDS: IOPAMIDOL-370 (76%);100ML BOTTLE 200 ML IV (13:17)
--- NOTE | 2024-02-03 13:43 | PC.NURSE ---
PT returned from RAD
[2024-02-03 13:49] LABS: Lymphocytes % 14 % (10-50); Monocytes % 2 % (2-9); Neutrophils % 84 % (42-76); Total Cells Counted 100
--- NOTE | 2024-02-03 13:49 | ED_ITS ---
Discharge Plan Disposition Patient Disposition: Admitted Condition: Good Clinical Impressions Clinical Impression: Fall, Closed fracture of right distal radius, Rhabdomyolysis, Facial laceration Discharge ED Provider: Franci Modi General Adult HPI <Maury Peter, DO - Last Filed: 02/03/24 19:43> General Chief complaint: Fall Stated complaint: Fall Time Seen by Provider: 02/03/24 12:41 Mode of Arrival: EMS Source of Information: Patient Limitations: No Limitations Description of Symptoms (Recalled from ER Triage Doc. by RN): Patient reports falling in her bathroom at midnight last night. Complaint of pain all over. Abraisons noted to left shoulder, left knee, left forearm, right wrist, left eye and complaint of left hip pain. Patient states she laid in the floor all night until her brother arrived this morning. History of Present Illness HPI narrative: 89-year-old female with past medical history significant for dementia, peripheral vascular disease, presents today for evaluation after being found down at home. Patient states that she had a mechanical fall on last night where she landed on her face. She states that she did not lose consciousness. She was on the floor for hours before family arrived. She currently complains of neck pain and upper back pain. Also complains of bilateral shoulder pain as well as pain over the left humerus and left elbow, right wrist and right hand. Also complains of left hip pain. Denies any chest pain, shortness of breath, abdominal pain. No further complaints on assessment. Related Data Home Medications Medication Instructions Recorded Confirmed aspirin 81 mg tablet,delayed 81 mg PO ONCE . 01/26/18 07/23/23 release (Adult Low Dose Aspirin) buspirone 10 mg tablet 10 mg PO TID . 30 days 01/26/18 02/03/24 cholecalciferol (vitamin D3) 50 2,000 unit PO ONCE . 01/26/18 12/09/23 mcg (2,000 unit) capsule furosemide 40 mg tablet 40 mg PO ONCE . 01/26/18 02/03/24 [id number]-otnbrpr 36,000 - 114,000 units PO . . 30 01/26/18 07/23/23 36,000-114,000-180,000 unit days ##90 capsule,delay rel sucralfate 1 gram tablet 1,000 mg PO TID , 22 days ##90 03/24/18 07/23/23 nebivolol 10 mg tablet 10 mg PO DAILY . 30 days #30 tabs 02/18/19 02/03/24 nystatin 100,000 unit/gram topical 1 applic topical BID . 07/02/19 07/23/23 powder docusate sodium 100 mg capsule 100 mg PO NEEDED PRN 06/29/20 12/09/23 (Colace) Constipation polyethylene glycol 3350 17 17 g PO DAILY 06/29/20 12/09/23 gram/dose oral powder (Miralax) potassium chloride 10 mEq 10 meq PO DAILY 04/11/22 02/03/24 capsule,extended release omeprazole magnesium 20 mg 20 mg PO DAILY 07/23/23 02/03/24 tablet,delayed release (Prilosec OTC) Previous Rx's Medication Instructions Recorded nitrofurantoin 100 mg PO BID #10 caps 12/09/23 monohydrate/macrocrystals 100 mg capsule (Macrobid) phenazopyridine 200 mg tablet 200 mg PO Q8H 2 days #6 tabs 12/09/23 (Pyridium) Allergies Allergy/AdvReac Type Severity Reaction Status Date / Time atorvastatin [ATORVASTATIN] Allergy Unknown MUSCLE, Verified 07/23/23 13:09 UNABLE TO WALK cefuroxime [CEFUROXIME] Allergy Unknown I-RASH Verified 07/23/23 13:09 clindamycin [CLINDAMYCIN] Allergy Unknown Verified 07/23/23 13:09 duloxetine [DULOXETINE] Allergy Unknown NA-NAUSEA Verified 07/23/23 13:09 gabapentin [GABAPENTIN] Allergy Unknown SHAKEY Verified 07/23/23 13:09 penicillin V [PENICILLIN V] Allergy Unknown I-RASH, Verified 07/23/23 13:09 NAUSEA tegaserod [From ZELNORM] Allergy Unknown NA-NAUSEA Verified 07/23/23 13:09 tetracycline [TETRACYCLINE] Allergy Unknown RASH, Verified 07/23/23 13:09 NAUSEA tramadol [TRAMADOL] Allergy Unknown Verified 07/23/23 13:09 Cephalosporins Allergy Verified 12/09/23 12:18 PFS <Maury Peter, DO - Last Filed: 02/03/24 19:43> PFS Disclaimer: The information contained in this section may have been updated after the patient was seen, as this information can be updated by other users. Medical History (Updated 02/03/24 @ 19:55 by Kedar Lewis MD) Afib Breast cancer HTN (hypertension) Lymphedema of both lower extremities Lymphedema of right upper extremity Obesity (BMI 30.0-34.9) Onychodystrophy Social History Smoking Status: Never smoker alcohol intake: never current occupational status: other Travel in the last 8 weeks: None household members: other housing: house <Maury Peter DO - Last Filed: 02/03/24 19:43> ROS Obtained: Yes All systems reviewed & no additional complaints except as documented Physical Exam <Maury Peter DO - Last Filed: 02/03/24 19:43> General General appearance: alert and in no apparent distress Head Head exam: normocephalic and other (No tenderness to palpation of the head. She does have a small 1 cm laceration on the superior aspect of the left cheek. There also appears to be a millimeter 1.5 to 2 cm laceration on the left cheek. No active bleeding.) Eye Eye exam: Present normal appearance, PERRL, EOMI and other (No periorbital tenderness. There is ecchymosis surrounding the left eye. Extraocular movements are intact without pain.) ENT ENT exam: Present normal oropharynx and mucous membranes moist Neck Neck exam: Present full ROM and tenderness (Midline tenderness to palpation of the C-spine and upper thoracic spine. No step-offs.); Absent meningismus Chest Chest inspection: Present other (Large area of ecchymosis over the left chest anteriorly.) Respiratory Respiratory exam: Absent respiratory distress, wheezes, stridor or accessory muscle use Cardiovascular Cardiovascular exam: Present normal rhythm Abdominal Exam Abdominal exam: Present soft; Absent distention, tenderness, guarding, rebound or rigidity Extremities Exam Extremities exam: Present tenderness and other (Tenderness to palpation over the shoulders bilaterally. There is also tenderness palpation of the left humerus and elbow. Tenderness to palpation over the right hand, wrist and distal forearm. Swelling of the right upper extremity is noted.) Back Exam Back exam: Present other (Midline tenderness palpation of the C-spine and upper thoracic spine. No midline tenderness palpation of the L-spine. No step-offs.) Neurological Exam Neurological exam: Present alert, oriented X3 and CN II-XII intact; Absent motor sensory deficit Psychiatric Psychiatric exam: Present normal affect and normal mood Skin Skin exam: Present warm, dry and other (bruising) Medical Decision Making <Maury Peter, DO - Last Filed: 02/03/24 19:43> Medical Records Medical records reviewed: Yes I reviewed the patient's medical records. Matt Inquiry Pt receiving controlled substance: No Matt was queried for this patient: No Vital Signs: 02/03/24 12:23 02/03/24 14:17 02/03/24 14:22 Temperature 98.0 F Temperature Source Oral Pulse Rate 64 Pulse Rate [Radial] 106 H Respiratory Rate 18 22 20 Blood Pressure 77/54 L 140/81 Blood Pressure [Left Arm] 127/84 Blood Pressure Mean 59 87 Blood Pressure Mean [Left Arm] 98 Blood Pressure Source Blood Pressure Source [Left Arm] Automatic Cuff Blood Pressure Position Blood Pressure Position [Left Arm] Sitting 02 Sat by Pulse Oximetry 95 100 100 Oxygen Delivery Method Room Air Oxygen Flow Rate (LPM) 02/03/24 14:30 02/03/24 15:00 02/03/24 15:31 Temperature Temperature Source Pulse Rate 97 H 65 Pulse Rate [Radial] Respiratory Rate 20 20 22 Blood Pressure 132/107 H 120/101 H 130/112 H Blood Pressure [Left Arm] Blood Pressure Mean 115 116 Blood Pressure Mean [Left Arm] Blood Pressure Source Blood Pressure Source [Left Arm] Blood Pressure Position Blood Pressure Position [Left Arm] 02 Sat by Pulse Oximetry 100 100 100 Oxygen Delivery Method Nasal Cannula Oxygen Flow Rate (LPM) 2 02/03/24 16:32 02/03/24 18:03 Temperature 98.0 F Temperature Source Oral Pulse Rate 92 H 92 H Pulse Rate [Radial] Respiratory Rate 22 Blood Pressure 114/93 H 114/93 H Blood Pressure [Left Arm] Blood Pressure Mean 97 Blood Pressure Mean [Left Arm] Blood Pressure Source Automatic Cuff Blood Pressure Source [Left Arm] Blood Pressure Position Sitting Blood Pressure Position [Left Arm] 02 Sat by Pulse Oximetry 94 L Oxygen Delivery Method Room Air Room Air Oxygen Flow Rate (LPM) Lab Data Lab Results 02/03/24 12:35: Urine Color Dark yellow, Urine Appearance Clear, Urine pH 5.5, Ur Specific [place] >= 1.030, Urine Protein 2+, Urine Glucose (UA) Negative, Uri ne Ketones Negative, Urine Blood 3+, Urine Nitrate Negative, Urine Bilirubin 2+ A, Urine Urobilinogen 1.0, Ur Leukocyte Esterase Negative, Urine RBC 5-10, Urine WBC None, Ur Squamous Epith Cells Occasional, Urine Bacteria 1+, Fine Granular Casts Occasional, Urine Yeast Occasional 02/03/24 12:40: WBC 14.0 H, RBC 4.41, Hgb 12.6, Hct 40.8, MCV 92.5, MCH 28.5, MCHC 30.8 L, RDW 14.1, Plt Count 416, MPV 8.1, Neut % (Auto) 89.1 H, Lymph % (Auto) 5.2 L, [place] % (Auto) 4.6, Eos % (Auto) 0.7, Baso % (Auto) 0.3, Neut # (Auto) 12.5 H, Lymph # (Auto) 0.7, [place] # (Auto) 0.7, Eos # (Auto) 0.1, Baso # (Auto) 0.0, Total Counted 100, Neutrophils % (Manual) 84 H, Lymphocytes % (Manual) 14, Monocytes % (Manual) 2, Platelet Estimate Normal, RBC Morphology Normal, PT 11.5, INR 1.07, APTT 28.5, Sodium 133 L, Potassium 4.4, Chloride 99, Carbon Dioxide 25, Anion Gap 13.4, BUN 20 H, Creatinine 0.90, Estimated Creat Clear 54, Estimated GFR 59, Est GFR ( Amer) 71, Glucose 172 H, Lactate 3.8 H, Calcium 9.1, Total Bilirubin 1.1, AST 229 H, ALT 75, Alkaline Phosphatase 134 H, Total Creatine Kinase 37065 H*, Total Protein 6.9, Albumin 4.0, Globulin 2.9, Albumin/Globulin Ratio 1.4, Lipase 49 02/03/24 17:25: Lactate 2.7 H 02/03/24 12:40 02/03/24 12:40 Orders (Tests/Meds): ED MEDICATIONS Generic Name Dose Route Start Last Admin Trade Name Freq PRN Reason Stop Dose Admin Buspirone HCl 10 mg 02/03/24 21:00 02/03/24 21:02 Buspirone Hcl 10 Mg Tablet PO 03/04/24 20:59 10 mg TID ANDREW Administration Heparin Sodium (Porcine) 5,000 unit 02/04/24 09:00 Heparin Sodium 5,000 Unit/Ml Vial SQ 03/05/24 08:59 TID ANDREW Lactated Ringer's 1,000 mls @ 150 mls/hr 02/03/24 22:00 02/03/24 22:37 Lactated Ringer's 1000 Ml Bag IV 03/04/24 21:59 150 mls/hr .Q6H40M ANDREW Administration Metoprolol Tartrate 25 mg 02/03/24 21:00 02/03/24 21:02 Metoprolol Tartrate 25mg Tablet PO 03/04/24 20:59 25 mg BID ANDREW Administration Ondansetron HCl 4 mg 02/03/24 20:43 Ondansetron 4mg/2ml Vial IV 03/04/24 20:42 Q6HP PRN Nausea Pantoprazole Sodium 40 mg 02/03/24 21:00 02/03/24 21:02 Pantoprazole 40mg Tablet PO 03/04/24 20:59 40 mg HS ANDREW Administration Sodium Chloride 10 ml 02/03/24 12:42 Sodium Chloride 0.9% 10ml Flush Syringe IV 03/04/24 12:41 NEEDED PRN Maintain IV Site Sodium Chloride 10 ml 02/03/24 21:51 Sodium Chloride 0.9% 10ml Flush Syringe IV 03/04/24 21:50 NEEDED PRN Maintain IV Site Discontinued Medications Generic Name Dose Route Start Last Admin Trade Name Freq PRN Reason Stop Dose Admin Lactated Ringer's 500 mls @ 999 mls/hr 02/03/24 13:49 02/03/24 13:53 Lactated Ringer's 500ml IV 02/03/24 14:19 999 mls/hr .Q31M ONE Administration Lactated Ringer's 1,000 mls @ 999 mls/hr 02/03/24 16:00 02/03/24 16:10 Lactated Ringer's 1000 Ml Bag IV 02/03/24 17:00 999 mls/hr .Q1H1M ONE Administration Iopamidol 200 ml 02/03/24 13:16 02/03/24 13:17 Iopamidol-370 (76%);100ml Bottle IV 02/03/24 13:17 200 ml ONCE ONE Administration Morphine Sulfate 2 mg 02/03/24 12:42 02/03/24 13:53 Morphine 2mg/Ml Syringe IV 02/03/24 12:43 2 mg ONCE ONE Administration Ondansetron HCl 4 mg 02/03/24 12:42 02/03/24 13:53 Ondansetron 4mg/2ml Vial IV 02/03/24 12:43 4 mg ONCE ONE Administration Sodium Chloride 100 ml 02/03/24 13:16 02/03/24 13:17 0.9 % Sodium Chloride 50 Ml Vial IV 02/03/24 13:17 100 ml ONCE ONE Administration Sodium Chloride 10 ml 02/03/24 13:16 02/03/24 13:17 Sodium Chloride 0.9% 10ml Syr (Rad Only) IV 02/03/24 13:17 10 ml ONCE ONE Administration ORDERS Category Date Time Status CT angio abdomen pelvis Stat Cat Scan 02/03/24 12:[address] angio chest - dissection Stat Cat Scan 02/03/24 12:[address] angio head Stat Cat Scan 02/03/24 12:[address] angio neck Stat Cat Scan 02/03/24 12:[address] bony pelvis Stat Cat Scan 02/03/24 12:[address] cervical spine wo con Stat Cat Scan 02/03/24 12:[address] head/brain wo con Stat Cat Scan 02/03/24 12:[address] lumbar spine wo con Stat Cat Scan 02/03/24 12:[address] thoracic spine wo con Stat Cat Scan 02/03/24 12:42 Completed CXR --portable [XR chest portable] Stat Exams 02/03/24 12:42 Completed Elbow XR left 2 views [XR elbow LT 2V] Stat Exams 02/03/24 12:47 Completed Forearm XR right 2 views [XR forearm RT 2V] Stat Exams 02/03/24 15:20 Comp leted Hand XR right 2 views [XR hand RT 2V] Stat Exams 02/03/24 12:47 Completed Humerus XR left [XR humerus LT] Stat Exams 02/03/24 12:47 Completed Pelvis XR 1-2 views [XR pelvis 1-2V] Stat Exams 02/03/24 12:43 Completed Shoulder XR left minimum 2 views [XR shoulder LT min 2V Exams 02/03/24 12:47 Completed ] Stat Shoulder XR right miminum 2 views [XR shoulder RT min Exams 02/03/24 12:47 Completed 2V] Stat Wrist XR right minimum 3 views [XR wrist RT min 3V] Exams 03/05/24 12:47 Completed Stat Activated Partial Thrombo Time Stat Lab 02/03/24 12:40 Completed CBC w/Auto Diff [Complete Blood Count Auto Diff] Stat Lab 02/03/24 12:40 Completed Complete Blood Count Auto Diff AMLAB Lab 02/04/24 06:00 Ordered Comprehensive Metabolic Panel AMLAB Lab 02/04/24 06:00 Ordered Comprehensive Metabolic Panel Stat Lab 02/03/24 12:40 Completed Creatine Kinase Stat Lab 02/03/24 12:40 Completed Lactic Acid Follow Up (RFLX 1) Stat Lab 02/03/24 17:25 Completed Lactic Acid Stat Lab 02/03/24 12:40 Completed Lipase Stat Lab 02/03/24 12:40 Completed Magnesium AMLAB Lab 02/04/24 06:00 Ordered Prothrombin Time INR Stat Lab 02/03/24 12:40 Completed UA [Urinalysis and Microscopic] Stat Lab 02/03/24 12:35 Completed ECG Data Tracing #1: I reviewed this ECG and interpreted as documented below: EKG personally interpreted by me. Atrial fibrillation with a rate of [address] elevations are noted. Medical Decision Narrative: 89-year-old female with past medical history significant for dementia, peripheral vascular disease, presents today for evaluation after being found down at home. Patient states that she had a mechanical fall on last night where she landed on her face. She states that she did not lose consciousness. She was on the floor for hours before family arrived. She currently complains of neck pain and upper back pain. Also complains of bilateral shoulder pain as well as pain over the left humerus and left elbow, right wrist and right hand. Also complains of left hip pain. On assessment, she was hemodynamically stable and in no acute distress. She did have significant areas of ecchymosis throughout, likely from her fall. There was ecchymosis surrounding the left without tenderness to palpation. No pain with extraocular movements. Pupils are equal round and reactive to light and accommodation. She did have midline tenderness palpation along the C and upper thoracic spine. There was no midline to palpation of the L-spine. No step-offs were appreciated. There was a large area of ecchymosis over the left chest anteriorly. Also depression and area of bruising over the left shoulder. She also has tenderness to palpation over the shoulders bilaterally as well as over the left humerus and left elbow. Tenderness palpation over the right hand, wrist and distal forearm. The abdomen was soft nondistended and nontender to palpation. She was alert and oriented and was conversing well. Chest clear to auscultation. Abdomen flat unremarkab le. Differential diagnoses include but limited to intracranial bleed, spinal fracture/dislocation, rib fracture, intrathoracic/intra-abdominal bleeding, solid organ injury, extremity fracture, among others. I did order for an EKG and it was remarkable for atrial fibrillation with a rate of [address] elevations were noted. She does have an elevation in her WBC at 14 which is likely reactive. No anemia. PT/INR/APTT within range. Sodium of 133. Lactate 3.8. I did order for a 500 cc fluid bolus of LR to assist with lowering lactate. This was also given as it was expected that patient's CK will be elevated, CK, pending at this time. AST 229. Alkaline phosphatase 134. Urinalysis with no signs of UTI. Extremity x-rays were performed, results pending at this time. On my informal interpretation of the patient's CT head, I did not note any intracranial bleeds. Also did not note any spinal fractures on my informal interpretation of patient's spinal imaging. Per radiology report, CT head was without any acute intracranial normalities. CT of the chest, abdomen and pelvis did not show any bleeds. CT of the C-spine did not show any acute fractures or malalignment. CT of the T-spine did show abnormal widening of T12-L1. Patient did not have any tenderness of this area. CT of the L-spine without any acute fractures. CTA head/neck stable with no evidence of vascular injury. At this time, further x-ray imaging as well as results are pending. CK is also pending at this time. Patient will likely need admission for further management. Care signed out to Dr. Franci Modi at this time. Patient remains hemodynamically stable and in no acute distress, pain controlled. DO Rian: <Franci Modi DO - Last Filed: 02/03/24 23:44> Vital Signs: 02/03/24 12:23 02/03/24 14:17 02/03/24 14:22 Temperature 98.0 F Temperature Source Oral Pulse Rate 64 Pulse Rate [Radial] 106 H Respiratory Rate 18 22 20 Blood Pressure 77/54 L 140/81 Blood Pressure [Left Arm] 127/84 Blood Pressure Mean 59 87 Blood Pressure Mean [Left Arm] 98 Blood Pressure Source Blood Pressure Source [Left Arm] Automatic Cuff Blood Pressure Position Blood Pressure Position [Left Arm] Sitting 02 Sat by Pulse Oximetry 95 100 100 Oxygen Delivery Method Room Air Oxygen Flow Rate (LPM) 02/03/24 14:30 02/03/24 15:00 02/03/24 15:31 Temperature Temperature Source Pulse Rate 97 H 65 Pulse Rate [Radial] Respiratory Rate 20 20 22 Blood Pressure 132/107 H 120/101 H 130/112 H Blood Pressure [Left Arm] Blood Pressure Mean 115 116 Blood Pressure Mean [Left Arm] Blood Pressure Source Blood Pressure Source [Left Arm] Blood Pressure Position Blood Pressure Position [Left Arm] 02 Sat by Pulse Oximetry 100 100 100 Oxygen Delivery Method Nasal Cannula Oxygen Flow Rate (LPM) 2 02/03/24 16:32 02/03/24 18:03 Temperature 98.0 F Temperature Source Oral Pulse Rate 92 H 92 H Pulse Rate [Radial] Respiratory Rate 22 Blood Pressure 114/93 H 114/93 H Blood Pressure [Left Arm] Blood Pressure Mean 97 Blood Pressure Mean [Left Arm] Blood Pressure Source Automatic Cuff Blood Pressure Source [Left Arm] Blood Pressure Position Sitting Blood Pressure Position [Left Arm] 02 Sat by Pulse Oximetry 94 L Oxygen Delivery Method Room Air Room Air Oxygen Flow Rate (LPM) Lab Data Lab Results 02/03/24 12:35: Urine Color Dark yellow, Urine Appearance Clear, Urine pH 5.5, Ur Specific [place] >= 1.030, Urine Protein 2+, Urine Glucose (UA) Negative, Urine Ketones Negative, Urine Blood 3+, Urine Nitrate Negative, Urine Bilirubin 2+ A, Urine Urobilinogen 1.0, Ur Leukocyte Esterase Negative, Urine RBC 5-10, Urine WBC None, Ur Squamous Epith Cells Occasional, Urine Bacteria 1+, Fine Granular Casts Occasional, Urine Yeast Occasional 02/03/24 12:40: WBC 14.0 H, RBC 4.41, Hgb 12.6, Hct 40.8, MCV 92.5, MCH 28.5, MCHC 30.8 L, RDW 14.1, Plt Count 416, MPV 8.1, Neut % (Auto) 89.1 H, Lymph % (Auto) 5.2 L, [place] % (Auto) 4.6, Eos % (Auto) 0.7, Baso % (Auto) 0.3, Neut # (Auto) 12.5 H, Lymph # (Auto) 0.7, [place] # (Auto) 0.7, Eos # (Auto) 0.1, Baso # (Auto) 0.0, Total Counted 100, Neutrophils % (Manual) 84 H, Lymphocytes % (Manual) 14, Monocytes % (Manual) 2, Platelet Estimate Normal, RBC Morphology Normal, PT 11.5, INR 1.07, APTT 28.5, Sodium 133 L, Potassium 4.4, Chloride 99, Carbon Dioxide 25, Anion Gap 13.4, BUN 20 H, Creatinine 0.90, Estimated Creat Clear 54, Estimated GFR 59, Est GFR ( Amer) 71, Glucose 172 H, Lactate 3.8 H, Calcium 9.1, Total Bilirubin 1.1, AST 229 H, ALT 75, Alkaline Phosphatase 134 H, Total Creatine Kinase 06365 H*, Total Protein 6.9, Albumin 4.0, Globulin 2.9, Albumin/Globulin Ratio 1.4, Lipase 49 02/03/24 17:25: Lactate 2.7 H Orders (Tests/Meds): ED MEDICATIONS Generic Name Dose Route Start Last Admin Trade Name Freq PRN Reason Stop Dose Admin Buspirone HCl 10 mg 02/03/24 21:00 02/03/24 21:02 Buspirone Hcl 10 Mg Tablet PO 03/04/24 20:59 10 mg TID ANDREW Administration Heparin Sodium (Porcine) 5,000 unit 02/04/24 09:00 Heparin Sodium 5,000 Unit/Ml Vial SQ 03/05/24 08:59 TID ANDREW Lactated Ringer's 1,000 mls @ 150 mls/hr 02/03/24 22:00 02/03/24 22:37 Lactated Ringer's 1000 Ml Bag IV 03/04/24 21:59 150 mls/hr .Q6H40M ANDREW Administration Metoprolol Tartrate 25 mg 02/03/24 21:00 02/03/24 21:02 Metoprolol Tartrate 25mg Tablet PO 03/04/24 20:59 25 mg BID ANDREW Administration Ondansetron HCl 4 mg 02/03/24 20:43 Ondansetron 4mg/2ml Vial IV 03/04/24 20:42 Q6HP PRN Nausea Pantoprazole Sodium 40 mg 02/03/24 21:00 02/03/24 21:02 Pantoprazole 40mg Tablet PO 03/04/24 20:59 40 mg HS ANDREW Administration Sodium Chloride 10 ml 02/03/24 12:42 Sodium Chloride 0.9% 10ml Flush Syringe IV 03/04/24 12:41 NEEDED PRN Maintain IV Site Sodium Chloride 10 ml 02/03/24 21:51 Sodium Chloride 0.9% 10ml Flush Syringe IV 03/04/24 21:50 NEEDED PRN Maintain IV Site Discontinued Medications Generic Name Dose Route Start Last Admin Trade Name Freq PRN Reason Stop Dose Admin Lactated Ringer's 500 mls @ 999 mls/hr 02/03/24 13:49 02/03/24 13:53 Lactated Ringer's 500ml IV 02/03/24 14:19 999 mls/hr .Q31M ONE Administration Lactated Ringer's 1,000 mls @ 999 mls/hr 02/03/24 16:00 02/03/24 16:10 Lactated Ringer's 1000 Ml Bag IV 02/03/24 17:00 999 mls/hr .Q1H1M ONE Administration Iopamidol 200 ml 02/03/24 13:16 02/03/24 13:17 Iopamidol-370 (76%);100ml Bottle IV 02/03/24 13:17 200 ml ONCE ONE Administration Morphine Sulfate 2 mg 02/03/24 12:42 02/03/24 13:53 Morphine 2mg/Ml Syringe IV 02/03/24 12:43 2 mg ONCE ONE Administration Ondansetron HCl 4 mg 02/03/24 12:42 02/03/24 13:53 Ondansetron 4mg/2ml Vial IV 02/03/24 12:43 4 mg ONCE ONE Administration Sodium Chloride 100 ml 02/03/24 13:16 02/03/24 13:17 0.9 % Sodium Chloride 50 Ml Vial IV 02/03/24 13:17 100 ml ONCE ONE Administration Sodium Chloride 10 ml 02/03/24 13:16 02/03/24 13:17 Sodium Chloride 0.9% 10ml Syr (Rad Only) IV 02/03/24 13:17 10 ml ONCE ONE Administration ORDERS Category Date Time Status CT angio abdomen pelvis Stat Cat Scan 02/03/24 12:[address] angio chest - dissection Stat Cat Scan 02/03/24 12:[address] angio head Stat Cat Scan 02/03/24 12:[address] angio neck Stat Cat Scan 02/03/24 12:[address] bony pelvis Stat Cat Scan 02/03/24 12:[address] cervical spine wo con Stat Cat Scan 02/03/24 12:[address] head/brain wo con Stat Cat Scan 02/03/24 12:[address] lumbar spine wo con Stat Cat Scan 02/03/24 12:[address] thoracic spine wo con Stat Cat Scan 02/03/24 12:42 Completed CXR --portable [XR chest portable] Stat Exams 02/03/24 12:42 Completed Elbow XR left 2 views [XR elbow LT 2V] Stat Exams 02/03/24 12:47 Completed Forearm XR right 2 views [XR forearm RT 2V] Stat Exams 02/03/24 15:20 Completed Hand XR right 2 views [XR hand RT 2V] Stat Exams 02/03/24 12:47 Completed Humerus XR left [XR humerus LT] Stat Exams 02/03/24 12:47 Completed Pelvis XR 1-2 views [XR pelvis 1-2V] Stat Exams 02/03/24 12:43 Completed Shoulder XR left minimum 2 views [XR shoulder LT min 2V Exams 02/03/24 12:47 Completed ] Stat Shoulder XR right miminum 2 views [XR shoulder RT min Exams 02/03/24 12:47 Completed 2V] Stat Wrist XR right minimum 3 views [XR wrist RT min 3V] Exams 02/03/24 12:47 Completed Stat Activated Partial Thrombo Time Stat Lab 02/03/24 12:40 Completed CBC w/Auto Diff [Complete Blood Count Auto Diff] Stat Lab 02/03/24 12:40 Completed Complete Blood Count Auto Diff AMLAB Lab 02/04/24 06:00 Ordered Comprehensive Metabolic Panel AMLAB Lab 02/04/24 06:00 Ordered Comprehensive Metabolic Panel Stat Lab 02/03/24 12:40 Completed Creatine Kinase Stat Lab 02/03/24 12:40 Completed Lactic Acid Follow Up (RFLX 1) Stat Lab 02/03/24 17:25 Completed Lactic Acid Stat Lab 02/03/24 12:40 Completed Lipase Stat Lab 02/03/24 12:40 Completed Magnesium AMLAB Lab 02/04/24 06:00 Ordered Prothrombin Time INR Stat Lab 02/03/24 12:40 Completed UA [Urinalysis and Microscopic] Stat Lab 02/03/24 12:35 Completed Medical Decision Narrative: 89-year-old female with past medical history significant for dementia, peripheral vascular disease, presents today for evaluation after being found down at home. Patient states that she had a mechanical fall on last night where she landed on her face. She states that she did not lose consciousness. She was on the floor for hours before family arrived. She currently complains of neck pain and upper back pain. Also complains of bilateral shoulder pain as well as pain over the left humerus and left elbow, right wrist and right hand. Also complains of left hip pain. On assessment, she was hemodynamically stable and in no acute distress. She did have significant areas of ecchymosis throughout, likely from her fall. There was ecchymosis surrounding the left without tenderness to palpation. No pain with extraocular movements. Pupils are equal round and reactive to light and accommodation. She did have midline tenderness palpation along the C and upper thoracic spine. There was no midline to palpation of the L-spine. No step-offs were appreciated. There was a large area of ecchymosis over the left chest anteriorly. Also depression and area of bruising over the left shoulder. She also has tenderness to palpation over the shoulders bilaterally as well as over the left humerus and left elbow. Tenderness palpation over the right hand, wrist and distal forearm. The abdomen was soft nondistended and nontender to palpation. She was alert and oriented and was conversing well. Chest clear to auscultation. Abdomen flat unremarkable. Differential diagnoses include but limited to intracranial bleed, spinal fracture/dislocation, rib fracture, intrathoracic/intra-abdominal bleeding, solid organ injury, extremity fracture, among others. I did order for an EKG and it was remarkable for atrial fibrillation with a rate of [address] elevations were noted. She does have an elevation in her WBC at 14 which is likely reactive. No anemia. PT/INR/APTT within range. Sodium of 133. Lactate 3.8. I did order for a 500 cc fluid bolus of LR to assist with lowering lactate. This was also given as it was expected that patient's CK will be elevated, CK, pending at this time. AST 229. Alkaline phosphatase 134. Urinalysis with no signs of UTI. Extremity x-rays were performed, results pending at this time. On my informal interpretation of the patient's CT head, I did not note any intracranial bleeds. Also did not note any spinal fractures on my informal interpretation of patient's spinal imaging. Per radiology report, CT head was without any acute intracranial normalities. CT of the chest, abdomen and pelvis did not show any bleeds. CT of the C-spine did not show any acute fractures or malalignment. CT of the T-spine did show abnormal widening of T12-L1. Patient did not have any tenderness of this area. CT of the L-spine without any acute fractures. CTA head/neck stable with no evidence of vascular injury. At this time, further x-ray imaging as well as results are pending. CK is also pending at this time. Patient will likely need admission for further management. Care signed out to Dr. Franci Modi at this time. Patient remains hemodynamically stable and in no acute distress, pain controlled. DO Rian: On my assessment of the patient, she is resting comfortably. Her lacerations were repaired with Dermabond, as they are very superficial. She was agreeable to this and tolerated it well. Please see procedure note for further documentation. I dependently interpreted imaging prior to radiology read and noted concern for a right distal radius fracture without significant displacement. Labs demonstrated an elevated CK of 11,000, however patient is making good urine and has normal kidney function. A liter bolus of IV fluids was initiated by myself after initial 500 cc bolus of IV fluids. I had an interactive discussion with Dr. Santana regarding the patient's wrist fracture, as I feel she needs admission for rhabdo. He states she can still follow-up outpatient with regards to this. I asked for advice with regards to splint, and he advised a volar resting splint would be best as opposed to sugar- tong splint given the patient's lymphedema. This was placed. Patient remained neurovascularly intact and comfortable after splinting. Please see procedure note for further documentation. I had an interactive discussion with the hospitalist who admitted the patient for further evaluation and management. <Franci Modi DO - Last Filed: 02/03/24 23:44> Risk/Benefits of Procedure(s) Were Explained: Yes Laceration Laceration 1: Site: face (L eyebrow) Side (If applicable): left Size (cm): 1 Description: linear Pre-repair: wound explored and irrigated extensively Skin layer closed with: Dermabond Laceration 2: Site: face (L cheek) Side (If applicable): left Size (cm): 0.5 Description: linear Depth: simple, single layer Pre-repair: wound explored and irrigated extensively Skin layer closed with: Dermabond Orthopedic Splinting/Casting Injury #1: Side: right Upper Extremity Injury Location: wrist Upper Extremity Immobilizer: volar splint Post Cast/Splinting Neuro Status: intact and no change Post Cast/Splinting Vasc Status: intact and no change Critical Care <Maury Peter, DO - Last Filed: 02/03/24 19:43> Critical Care Time Critical Care Time: No
[2024-02-03 13:50] LABS: Platelet Estimate Normal; RBC Morphology Normal
--- NOTE | 2024-02-03 13:50 | PC.NURSE ---
Patient returned from radiology.
[2024-02-03] MEDS: ONDANSETRON 4MG/2ML VIAL 4 MG IV (13:53)
[2024-02-03] MEDS: RINGERS SOLUTION,LACTATED 500 ML 999 ML IV (13:53)
[2024-02-03] MEDS: MORPHINE 2MG/ML SYRINGE 2 MG IV (13:53)
--- NOTE | 2024-02-03 14:25 | PC.NURSE ---
Pt resting in bed. Visitor at BS and call light within reach.
--- NOTE | 2024-02-03 15:10 | PC.NURSE ---
Pt resting in bed. Visitor at BS and call light within reach.
--- NOTE | 2024-02-03 15:20 | XR_ITS ---
FINAL REPORT CLINICAL HISTORY: fall FINDINGS: Right forearm Two views were obtained. There is an impacted fracture of the distal radius. There is also a fracture of the ulnar styloid process. The bones are osteopenic. There are degenerative changes of the elbow and wrist. IMPRESSION: Fractures as above. Reviewed, Interpreted and Dictated by Shaun Leal III, MD Transcribed by Nahed Diez Authenticated and [facility]
[2024-02-03 15:40] LABS: Appearance,Urine CLEAR (Clear); Blood, Urine 3+ (Negative); Glucose,Urine (UA) Negative (Negative); Ketones,Urine Negative (Negative); Leukocyte Esterase,Urine Negative (Negative); Microscopic, Urine URINE MICROSCOPIC (MICROSCOPIC); Nitrate,Urine Negative (Negative); PH,Urine 5.5 (5.0-8.5); Protein,Urine 2+ (Negative); Specific Gravity, Urine >= 1.030 (1.005-1.030)
--- NOTE | 2024-02-03 15:45 | PC.NURSE ---
Pt continues to rest in bed with no needs. Call light remains within reach.
[2024-02-03 15:46] LABS: Creatine Kinase 11750 U/L (30-135)
[2024-02-03 15:59] LABS: Bilirubin,Urine 2+ (Negative); Color,Urine Dark Yellow (Yellow)
[2024-02-03 16:00] LABS: Bacteria,Urine 1+ /lpf; Fine Granular Casts,Urine Occasional #/lpf (0); Squamous Epithelial Cell,Urine Occasional #/hpf (0-5)
[2024-02-03 16:01] LABS: Yeast,Urine Occasional /lpf
[2024-02-03] MEDS: LACTATED RINGERS 1000ML 1,000 ML 999 ML IV (16:10)
[2024-02-03 16:51] LABS: Reflex Lactic Add Lactic Reflex
--- NOTE | 2024-02-03 16:57 | PC.NURSE ---
Dr. Modi at BS to splint
--- NOTE | 2024-02-03 17:30 | PC.NURSE ---
[employer]ELOPER NOTIFIED OF ADMISSION
--- NOTE | 2024-02-03 17:37 | P.HP_ITS ---
History of Present Illness *Admission Date: 02/03/24 *Reason for visit:: Fall, found down *History of present illness: Ms. Laughlin is an 89-year-old female who lives by herself. She reports falling in her bathroom around midnight last night. Was found this morning after being down for 10 to 12 hours by her blogs manager. Came in to the ER because of pain all over, trauma, concern for possible fractures. Workup in the ER, noted to have abrasions on her left shoulder, left knee, left forearm. Having significant right wrist pain. Had a laceration above her left eye with dried blood in her hair. History significant for peripheral vascular disease, A-fib, hypertension, worsening dizziness lately. States that she has been getting around with her walker but felt dizzy. Workup in the ER with positive findings for rhabdomyolysis and right distal radial fracture. Wrist was braced, orthopedics was consulted. Recommended nonoperative management at this time with close follow-up for further management in 1 to 2 weeks. Given her rhabdomyolysis and debility and fall, necessitates inpatient admission for IV fluids, therapy eval's, possible placement. Medicine consulted for further management and admission. Upon arriving to the floor, patient presents with her brother. She is on room air. Denies any nausea or vomiting. Alert and oriented at baseline. Complaining of pain in her left shoulder and left side of her head. States she feels quite weak. [facility] Disclaimer: The information contained in this section may have been updated after the patient was seen, as this information can be updated by other users. Medical History (Updated 02/03/24 @ 19:55 by Kedar Lewis MD) Afib Breast cancer HTN (hypertension) Lymphedema of both lower extremities Lymphedema of right upper extremity Obesity (BMI 30.0-34.9) Onychodystrophy Social History Smoking Status: Never smoker alcohol intake: never current occupational status: other Travel in the last 8 weeks: None household members: other housing: house Review of Systems Review of Systems Review of systems (narrative): 14 point review of systems performed, pertinent positives and negatives as per HPI Meds Home Medications and Allergies Home Medications Medication Instructions Recorded Confirmed Type aspirin 81 mg tablet,delayed 81 mg PO ONCE . 01/26/18 07/23/23 History release (Adult Low Dose Aspirin) buspirone 10 mg tablet 10 mg PO TID . 30 days 01/26/18 02/03/24 History cholecalciferol (vitamin D3) 50 2,000 unit PO ONCE . 01/26/18 12/09/23 History mcg (2,000 unit) capsule furosemide 40 mg tablet 40 mg PO ONCE . 01/26/18 02/03/24 History gbinft-iqxjqpup-bnwwakt 36,000 - 114,000 units PO . . 30 01/26/18 07/23/23 History 36,000-114,000-180,000 unit days ##90 capsule,delay rel sucralfate 1 gram tablet 1,000 mg PO TID , 22 days ##90 03/24/18 07/23/23 History nebivolol 10 mg tablet 10 mg PO DAILY . 30 days #30 tabs 02/18/19 02/03/24 History nystatin 100,000 unit/gram topical 1 applic topical BID . 07/02/19 07/23/23 History powder docusate sodium 100 mg capsule 100 mg PO NEEDED PRN 06/29/20 12/09/23 History (Colace) Constipation polyethylene glycol 3350 17 17 g PO DAILY 06/29/20 12/09/23 History gram/dose oral powder (Miralax) potassium chloride 10 mEq 10 meq PO DAILY 04/11/22 02/03/24 History capsule,extended release omeprazole magnesium 20 mg 20 mg PO DAILY 07/23/23 02/03/24 History tablet,delayed release (Prilosec OTC) nitrofurantoin 100 mg PO BID #10 caps 12/09/23 Rx monohydrate/macrocrystals 100 mg capsule (Macrobid) phenazopyridine 200 mg tablet 200 mg PO Q8H 2 days #6 tabs 12/09/23 Rx (Pyridium) New Prescriptions to Start Prescriptions: Allergies Allergy/AdvReac Type Severity Reaction Status Date / Time atorvastatin [ATORVASTATIN] Allergy Unknown MUSCLE, Verified 07/23/23 13:09 UNABLE TO WALK cefuroxime [CEFUROXIME] Allergy Unknown I-RASH Verified 07/23/23 13:09 clindamycin [CLINDAMYCIN] Allergy Unknown Verified 07/23/23 13:09 duloxetine [DULOXETINE] Allergy Unknown NA-NAUSEA Verified 07/23/23 13:09 gabapentin [GABAPENTIN] Allergy Unknown SHAKEY Verified 07/23/23 13:09 penicillin V [PENICILLIN V] Allergy Unknown I-RASH, Verified 07/23/23 13:09 NAUSEA tegaserod [From ZELNORM] Allergy Unknown NA-NAUSEA Verified 07/23/23 13:09 tetracycline [TETRACYCLINE] Allergy Unknown RASH, Verified 07/23/23 13:09 NAUSEA tramadol [TRAMADOL] Allergy Unknown Verified 07/23/23 13:09 Cephalosporins Allergy Verified 12/09/23 12:18 Exam Data for Last 24 hours Vital signs and Labs for Last 24 Hours: Temp Pulse Resp BP Pulse Ox O2 Del Method O2 Flow Rate 98.0 F 92 H 22 114/93 H 94 L Room Air 2 02/03/24 12:23 02/03/24 16:32 02/03/24 15:31 02/03/24 16:32 02/03/24 16:32 02/03/24 16:32 02/03/24 15:00 Laboratory Results - last 24 hr 02/03/24 12:35: Urine Color Dark yellow, Urine Appearance Clear, Urine pH 5.5, Ur Specific [place] >= 1.030, Urine Protein 2+, Urine Glucose (UA) Negative, Urine Ketones Negative, Urine Blood 3+, Urine Nitrate Negative, Urine Bilirubin 2+ A, Urine Urobilinogen 1.0, Ur Leukocyte Esterase Negative, Urine RBC 5-10, Urine WBC None, Ur Squamous Epith Cells Occasional, Urine Bacteria 1+, Fine Granular Casts Occasional, Urine Yeast Occasional 02/03/24 12:40: WBC 14.0 H, RBC 4.41, Hgb 12.6, Hct 40.8, MCV 92.5, MCH 28.5, MCHC 30.8 L, RDW 14.1, Plt Count 416, MPV 8.1, Neut % (Auto) 89.1 H, Lymph % (Auto) 5.2 L, [place] % (Auto) 4.6, Eos % (Auto) 0.7, Baso % (Auto) 0.3, Neut # (Auto) 12.5 H, Lymph # (Auto) 0.7, [place] # (Auto) 0.7, Eos # (Auto) 0.1, Baso # (Auto) 0.0, Total Counted 100, Neutrophils % (Manual) 84 H, Lymphocytes % (Manual) 14, Monocytes % (Manual) 2, Platelet Estimate Normal, RBC Morphology Normal, PT 11.5, INR 1.07, APTT 28.5, Sodium 133 L, Potassium 4.4, Chloride 99, Carbon Dioxide 25, Anion Gap 13.4, BUN 20 H, Creatinine 0.90, Estimated Creat Clear 54, Estimated GFR 59, Est GFR ( Amer) 71, Glucose 172 H, Lactate 3.8 H, Calcium 9.1, Total Bilirubin 1.1, AST 229 H, ALT 75, Alkaline Phosphatase 134 H, Total Creatine Kinase 33955 H*, Total Protein 6.9, Albumin 4.0, Globulin 2.9, Albumin/Globulin Ratio 1.4, Lipase 49 I & O for Last 24 hours: Intake & Output 01/31/24 02/01/24 02/02/24 02/03/24 23:59 23:59 23:59 23:59 Weight 87.997 kg Constitutional Constitutional: no acute distress, obese, chronically ill appearing and cooperative *Routine HEENT Exam Head: Present normocephalic; Absent atraumatic Eye: Present EOMI and PERRL ENT: Present mucous membranes moist Comments: Laceration above left eyebrow, bruising around left eye. Dried blood in hair *Routine Neck Exam Neck: Present supple; Absent lymphadenopathy *Routine Respiratory Exam Respiratory: Present CTA bilaterally; Absent rhonchi, wheezes or crackles *Routine Cardiovascular Exam Cardiovascular: Present tachycardia and irregularly irregular *Routine Abdominal Exam Abdominal: Present soft and normoactive bowel sounds; Absent tenderness *Routine Rectal Exam Rectal:: deferred *Routine Genitalia Exam Genitalia:: deferred *Routine Extremities Exam Extremities: Present edema; Absent cyanosis or clubbing Comments: Lymphedema of right upper extremity, twice the diameter of left arm. *Routine Skin Exam Skin: Present warm; Absent rash Comments: Abrasion of left shoulder, left forearm, left knee. *Routine Neurological Exam Neurological: Present alert and oriented X3 Assessment and Plan *Assessment and plan (1) Afib: Status: Acute Category: Medical Code(s): I48.91 - Unspecified atrial fibrillation (2) Rhabdomyolysis: Status: Acute Category: Medical Code(s): M62.82 - Rhabdomyolysis (3) HTN (hypertension): Status: Acute Category: Medical Code(s): I10 - Essential (primary) hypertension (4) Lymphedema of right upper extremity: Status: Acute Category: Medical Code(s): I89.0 - Lymphedema, not elsewhere classified (5) Obesity (BMI 30.0-34.9): Status: Acute Category: Medical Code(s): E66.9 - Obesity, unspecified (6) Fall: Status: Acute Category: Medical Code(s): W19.XXXA - Unspecified fall, initial encounter (7) Facial laceration: Status: Acute Category: Medical Code(s): S01.81XA - Laceration without foreign body of other part of head, initial encounter Plan 89-year-old female found down at home. Concern for prolonged immobility. Presented to the ER with pain, fracture of right wrist, lacerations. Found to have rhabdomyolysis. Discussed case with ER physician, request admission for treatment of rhabdomyolysis, therapy eval, possible placement. Medicine agreed to admit for further management. Problems addressed as follows: Fall Rhabdomyolysis -CK elevated at 11,000. Kidney function currently normal with creatinine 1.9, BUN 20. IV fluids administered in the ER with a liter of LR. Continue LR at 150 cc an hour. Monitor urine output closely. Walter catheter in place. Repeat CBC, CMP, magnesium ordered for the morning. Urinalysis with 2+ bilirubin, 5-10 RBCs but 3+ blood., occasional granular cast -Reviewed images from ER, fracture of right wrist. No other fractures noted on imaging. -Lacerations glued in the ER. -Wound consult placed for abrasions to left arm. Atrial fibrillation Hypertension -Initiate metoprolol 25 mg twice daily. Echocardiogram ordered for the morning. -[id number] of 5. Will discuss anticoagulation again in the morning pending finding on echo. Risk for bleeding and possible intracranial trauma given falls. Will have shared discussion in the morning with patient and family. Mood: Continue BuSpar 10 mg 3 times a day PT and OT eval consults placed. Will need placement. Unsafe to go home. Case management to assist with referral for rehab. Full code Cardiac diet Heparin subcu 3 times daily
--- NOTE | 2024-02-03 17:40 | PC.NURSE ---
Report called to LYNN Toro on Med Surg.
[2024-02-03 17:58] LABS: Lactic Acid Follow Up (RFLX 1) 2.7 mmol/L (0.7-2.1)
--- NOTE | 2024-02-03 18:03 | PC.NURSE ---
arrived by stretcher from ED
[2024-02-03 19:39] LABS: Reflex Lactic (2 hrs) Add Lactic Reflex
[2024-02-03] MEDS: BUSPIRONE HCL 10 MG TABLET PO (21:02)
[2024-02-03] MEDS: METOPROLOL TARTRATE 25MG TABLET 25 MG PO (21:02)
[2024-02-03] MEDS: PANTOPRAZOLE 40MG TABLET 40 MG PO (21:02)
[2024-02-03 21:11] LABS: Lactic Acid Follow up (RFLX 2) 2.8 mmol/L (0.7-2.1)
[2024-02-03] MEDS: LACTATED RINGERS 1000ML 1,000 ML 150 ML IV (22:37)
[2024-02-04 04:00] VITALS: BP 110/64; PULSE 68; RESP 18; TEMP 36.6; O2SAT 94; BMI 32.2
[2024-02-04] MEDS: LACTATED RINGERS 1000ML 1,000 ML 150 ML IV ×3 (04:30→18:46)
--- NOTE | 2024-02-04 06:30 | CA_ITS ---
APPROVED REPORT EXAM: Comprehensive 2D, Doppler, and color-flow Echocardiogram Night Filler: TRAE Dillard, RVS Ht: 5 ft 7 in Wt: 194lbs BSA: 2.00 BP: 140/81 mmHg Rhythm: Atrial Fibrillation Indications: Afib, S/p mechanical fall, PVD,Dementia, Murmur 2D Dimensions Left Atrium 4.19 cm LA Volume 81.60 mL LA Volume Index 40.00 mL/m2 (M/F) 16-34 M-Mode Dimensions RVDd 2.65 cm (0.9-2.6) LA Diam 4.44 cm (1.9-4.0) LVDd 4.56 cm (3.5-5.7) LVDs 3.15 cm (3.5-5.7) IVSd 1.11 cm (0.6-1.1) PWd 0.91 cm (0.6-1.1) EF (Teich) 58.70% EPSs 0.47 cm FS 30.90% EDV (Teich) 95.40 mL TAPSE 1.33 (<1.7) ESV (Teich) 39.40 mL LV Diastology E Decel Time 190 (160-240 msec) E/A Ratio 1.42 MED A' 8.60 cm/s LAT A' 8.90 cm/s Aortic Valve BRIAN Index 0.87 cm2/m2 AoV Peak Diego. 122.0 (50-130 cm/s) AI PHT 553.00 ms AO Peak GR. 6.00 mmHg AO Mean GR. 3.00 (<5 mmHg) AO VTI 27.4 (18-25 cm) BRIAN (VTI) 1.77 (2.5-4.5 cm2) Mitral Valve MV A Velocity 66.0 (40-130 cm/s) E/A Ratio 1.42 MV Mean Gr. 1.30 (<2mmHg) Pulmonary Valve PV Peak Velocity 66.0 (50-150 cm/s) MO End VMAX 179.0 cm/s Tricuspid Valve TR P. Velocity 308.00 cm/s RAP Estimate 10.00 mmHg RVSP 48.00 mmHg Left Ventricle The left ventricle is normal size. The left ventricular systolic function is low normal. There is increased LV wall thickness. There is borderline global hypokinesis present. Grade 2 diastolic dysfunction. LVEF is 50%. Right Ventricle The right ventricle is normal size. The right ventricular systolic function is normal. Atria Left atrium is mildly dilated. Right atrium is mildly dilated. The interatrial septum is not well-visualized. Aortic Valve The aortic valve is mildly thickened. There is no aortic valvular stenosis. Mild aortic regurgitation. Mitral Valve The mitral valve leaflets are mildly thickened. No evidence of mitral valve stenosis. Mild mitral regurgitation. Tricuspid Valve The tricuspid valve leaflets are thin and pliable. Mild to moderate tricuspid regurgitation. RVSP is 40-45 mmHg. Pulmonic Valve The pulmonary valve is normal in structure. Trace pulmonic regurgitation. Great Vessels The aortic root is normal in size. The ascending aorta is normal in size. The IVC is not well-visualized. Pericardium There is no pericardial effusion. Other Information Study Quality: Fair Conclusion Low normal LV systolic function (LVEF 50%). Mild AI. Mild MR. Mild to moderate TR. Elevated RVSP 40-45 mmHg. Electronically signed by : Amber Quesada MD 02/06/2024 22:14:45
[2024-02-04 08:00] VITALS: BP 104/40; PULSE 66; RESP 16; TEMP 36.7; O2SAT 95
--- NOTE | 2024-02-04 08:15 | ECG_ITS ---
APPROVED REPORT Exam: Resting ECG HR:61 bpm ECG Measurements Heart Rate 61 AXES OR 181 P 29 QRSd 92 QRS 36 QT 479 T 100 QTc 482 Conclusion SINUS RHYTHM POSSIBLE ANTERIOR MYOCARDIAL INFARCTION , OF INDETERMINATE AGE [30 ms Q WAVE IN V3/V4, ABNORMAL ECG UNCONFIRMED REPORT Electronically signed by : Miki Joe MD 02/04/2024 20:20:15
[2024-02-04 09:11] LABS: Basophils % 0.2 % (0.1-2.0); Eosinophils # 0.1 K/mm3 (0.0-0.4); Eosinophils % 0.4 % (0.1-12.0); Hematocrit 36.2 % (37.0-47.0); Lymphocytes # 1.2 K/mm3 (0.7-4.5); Lymphocytes % 9.1 % (10-50); Mean Corpuscular HGB Conc 30.9 g/dL (31.8-35.4); Mean Corpuscular Volume 93.7 fl (81-99); Mean Platelet Volume 7.5 fl (7.4-10.4); Monocytes # 0.6 K/mm3 (0.1-1.0); Monocytes % 4.8 % (1.7-9.3); Neutrophils # 10.9 K/mm3 (1.8-7.8); Neutrophils % 85.4 % (37.0-80.0); Platelet Count 302 K/mm3 (142-424); Red Blood Count 3.87 M/mm3 (4.20-5.40); Red Cell Distribution Width 14.2 % (11.5-17.5); White Blood Count 12.8 K/mm3 (4.8-10.8)
[2024-02-04 09:21] LABS: MANUAL DIFFERENTIAL MANUAL DIFFERENTIAL (MANUAL DIFF)
[2024-02-04] MEDS: METOPROLOL TARTRATE 25MG TABLET 25 MG PO (09:47)
[2024-02-04] MEDS: HEPARIN SODIUM 5,000 UNIT/ML VIAL 5000 UNIT SQ ×3 (09:47→21:13)
[2024-02-04] MEDS: BUSPIRONE HCL 10 MG TABLET PO (09:47)
--- NOTE | 2024-02-04 10:06 | HMH.OTEV ---
OT Inpatient Evaluation Rehab OT IP Evaluation Start: 02/03/24 17:28 Freq: ONCE Status: Active Protocol: Document 02/04/24 10:02 HERBERTH (Rec: 02/04/24 10:06 HERBERTH [id number]) Rehab OT IP Assessment Subjective History Ms. Laughlin is an 89-year-old female who lives by herself. She reports falling in her bathroom around midnight last night. Was found this morning after being down for 10 to 12 hours by her knock out hand. Came in to the ER because of pain all over, trauma, concern for possible fractures. Workup in the ER, noted to have abrasions on her left shoulder , left knee, left forearm. Having significant right wrist pain. Had a laceration above her left eye with dried blood in her hair. History significant for peripheral vascular disease, A-fib, hypertension, worsening dizziness lately. States that she has been getting around with her walker but felt dizzy . Workup in the ER with positive findings for rhabdomyolysis and right distal radial fracture. Wrist was braced, orthopedics was consulted. Recommended nonoperative management at this time with close follow-up for further management in 1 to 2 weeks. Given her rhabdomyolysis and debility and fall, necessitates inpatient admission for IV fluids, therapy eval's, possible placement. Medicine consulted for further management and admission. Upon arriving to the floor, patient presents with her brother. She is on room air. Denies any nausea or vomiting . Alert and oriented at baseline. Complaining of pain in her left shoulder and left side of her head. States she feels quite weak. I can try to get up. Patient lives alone however does have an aid assistance that comes to the house 5-6 days a week. Independent with ADLs and ambulates with RW. Subjective Instructed Patient on proper hand and foot placement to complete bed mobility from supine->sit @ EOB->SPT to recliner requiring Max A x2. Patient required max verbal cueing and max visual cueing to complete task safely. Objective Patient Orientation Person,Place,Name,Age,Birthday ,Year Right Upper Extremity Gross ROM WFL Left Upper Extremity Gross ROM WFL Bed Mobility bed mobility - supine/sit Assist Level Maximum x 2 (75% assist) Transfer Training Sit/Stand/Pivot Transfer Assist Level Maximum x 2 (75% assist) Chair Transfer Ability Maximum x 2 (75% assist) Chair Transfer Technique Sit to/from Ambulatory Chair Transfer Assistive Devices Rolling Walker Rehab OT IP prob,goals,plan Problems Date of Evaluation: 02/04/24 OT IP Problems Bed Mobility,Transfers,Balance ,Self care,Safety Rehab Potential Rehab Potential Good Equipment Needs Assistive Devices Rolling / Wheeled Walker Plan OT intervention Plan Bed Mobility,Transfers,Balance ,Self care,Safety,Therapeutic Exercise OT Plan Frequency Daily Duration LOS Discharge Goals Bed Mobility Ability Assistance x1 Sit to Stand Chair Transfer Ability Maximum x 1 (75% assist) Chair Transfer Ability Maximum x 1 (75% assist) Chair Transfer Technique Sit to/from Ambulatory Chair Transfer Assistive Devices Rolling Walker Discharge Plan OT Discharge Plan Recommend placement at this time. Patient will require / care for ADLs and fx'l mobility. Unable to return home. Patient to continue skilled OP OT services where here at [facility]. Eval Complexity Eval Charge Codes 31064 - Low Complexity PHYSICIAN CERTIFICATION: I certify the specified therapy services for Sheri Laughlin are required, authorized, and reviewed every 30 days.
--- NOTE | 2024-02-04 10:19 | SW/DCPLANNER ---
Addendum entered by Alie Bustillo 02/06/24 09:18: Patient will discharge to [facility] level of care today. Addendum entered by Alie Bustillo 02/05/24 12:32: Jasmin pagan/ [facility] stated that she is able to accept this patient once medically stable for discharge. The plan for this patient is to discharge tomorrow pending no setbacks. Addendum entered by Alie Bustillo 02/04/24 15:11: Jasmin Chang stated that she will be onsite at 8AM to evaluate patient: I have updated patient. Original Note: I spoke w/ this patient regarding plans once medically stable for discharge. PT/OT evaluated patient and recommended SNF level of care. Patient is agreeable for patient information be faxed to Jasmin pagan/ [facility] Chang this AM. Discharge date is unknown at this time. I will continue to follow up w/ , bisi and [facility] Chang.
[2024-02-04 10:21] LABS: Alanine Aminotransferase 86 U/L (12-78); Albumin/Globulin Ratio 1.2 (1.1-1.8); Alkaline Phosphatase 100 U/L (38-126); Anion Gap 12.8 mEq/L (5-15); Aspartate Amino Transferase 195 U/L (14-36); Bilirubin,Total 0.8 mg/dl (0.2-1.3); Blood Urea Nitrogen 25 mg/dl (7-17); Calcium 8.6 mg/dl (8.4-10.2); Carbon Dioxide 20 mmol/L (22.0-30.0); Chloride 102 mmol/L (98-107); Creatinine Clearance Estimated 57 mL/min (50-200); Estimated Glomerular Filt Rate 59 ml/min (>60); GFR (African American) 71 ML/MIN (>60); Globulin 2.6 g/dL (1.3-3.2); Glucose 144 mg/dl (74-100); Potassium 4.8 mmoL/L (3.5-5.1); Sodium 130 mmol/L (136-145); Total Protein,Serum 5.6 g/dl (6.3-8.2)
[2024-02-04 10:32] LABS: Hemoglobin A1C 5.7 % (4.0-6.0)
[2024-02-04 10:50] LABS: Thyroid Stimulating Hormone 3.88 uIU/mL (0.465-4.68)
--- NOTE | 2024-02-04 10:58 | HMH.PHAINT1 ---
Pharmacy Intervention Comments: HOME MEDICATION RECONCILIATION VERIFIED USING THE LIST FROM CLINIC PHARMACY AND PT INTERVIEW
--- NOTE | 2024-02-04 11:22 | HMH.PTEV ---
Physical Therapy Evaluation Rehab PT IP Evaluation Start: 02/03/24 17:29 Freq: ONCE Status: Active Protocol: Document 02/04/24 10:54 RYAN (Rec: 02/04/24 11:22 PHORSARAH [id number]) Subjective/History History History Patient presents to [facility] following a fall at her home. She fell in her bathroom around midnight on 02/03/2024. The fall resulted in rhabdolysis, a fractured distal radius of her right arm , a laceration above her left eye and multiple lacerations on her left arm. The patient has been seen for outpatient wound care for a wound on her right anterior tibia prior to this event. The patient's PMH is remarkable for peripheral vascular disease, A-fib, hypertension, worsening dizziness lately. Subjective Subjective The patient is agreeable to therapy. She reports that she is feeling quite sore, but is willing to attempt to get to the chair. The patient reported that she does not think she should go back home and would like to be sent to rehab. New diagnosis of cancer in past 12 No months? Rehab PT IP Eval Objective Appearance Patient Behavior Appropriate,Cooperative Patient Orientation Person,Place,Birthday,Day of Month Difficulty following instructions none Speech Pattern Clear,Appropriate,Coherent Ambulation Patient Able to Ambulate No Balance Sitting Balance Leans or slides in chair Dynamic Sitting Balance Ability Poor Dynamic Standing Balance Ability Zero Transfers Bed Transfer Ability Maximum x 2 (75% assist) Chair Transfer Ability Maximum x 2 (75% assist) Rehab PT IP prob,goals,plan Problems Date of Evaluation: 02/04/24 PT IP Problems Bed Mobility,Transfers,Gait, Balance,Self care,Safety Rehab Potential Rehab Potential Fair Plan PT Intervention Plan Bed Mobility,Transfers,Gait, Balance,Self care,Safety, Therapeutic Exercise PT Plan Frequency Daily Duration LOS Discharge Goals Bed Transfer Ability Minimal x 2 (25% assist) Sit to Stand Chair Transfer Ability Minimal x 2 (25% assist) Ambulation Assistive Device Rolling Walker Ambulation Distance (feet) 25 Discharge Plan PT Discharge Plan The patient was seen for her initial evaluation today and presents well below her baseline in ambulation, transfers and prior function. Skilled PT is indicated to promote a return to the patient's prior level of function and to prevent further injuries. The patient does not present safely to return home at this time, and may be most appropriate for placement for rehab. Eval Complexity Eval Charge Codes 42013 - High Complexity PHYSICIAN CERTIFICATION: I certify the specified therapy services for Sheri Laughlin are required, authorized, and reviewed every 30 days.
--- NOTE | 2024-02-04 11:38 | HMH.PTWOUND ---
Rehab Inpt Wound Evaluation Rehab IP Wound Evaluation Start: 02/03/24 22:42 Freq: ONCE Status: Active Protocol: Document 02/04/24 11:34 PHOLaurenSARAH (Rec: 02/04/24 11:38 PHOMARIAELENA [id number]) Rehab PT Wound Assessment Subjective Subjective Patient presents to [facility] following a fall at her home. She fell in her bathroom around midnight on 02/03/2024. The fall resulted in rhabdolysis, a fractured distal radius of her right arm , a laceration above her left eye and multiple lacerations on her left arm. The patient has been seen for outpatient wound care for a wound on her right anterior tibia prior to this event. The patient's PMH is remarkable for peripheral vascular disease, A-fib, hypertension, worsening dizziness lately. Wound Left Posterior Shoulder Wound Type Abrasion Is This a Chronic Wound No Wound Length (cm) 4.0 Wound Width (cm) 6.0 Wound Depth (cm) 0.1 Surrounding Tissue Appearance Liscomb,Purple Drainage Amount None Right Mart Wound Type Stasis Ulcer Is This a Chronic Wound Yes Wound Length (cm) 4.0 Wound Width (cm) 5.0 Wound Depth (cm) 0.1 Wound Bed Appearance Liscomb,Yellow Percentage Granulated (%) 50 Percentage of Eschar (Yellow) (%) 50 Wound Margins Description Well Defined Surrounding Tissue Appearance Liscomb Edema Type Pitting Edema Degree 2+ Query Text:1+ Trace, Barely Detectable, Rebound 15-30 seconds 2+ Moderate, Slight Indentation, Rebound 10-20 seconds 3+ Deep, Deeper Indentation, Rebound > 30 seconds 4+ Very Deep, Rebound > 60 seconds Wound Drainage Description Serous Drainage Amount Small Wound Topical Solution/Irrigant Saline Irrigant Primary Dressing Non-Adherent Gauze Pad Wound Secondary Dressing Type Gauze Roll/Wrap,Elastic Bandage Wound Debridement Method Gauze,Mechanical Wound Debridement Amount of Tissue None Removed Dressing Change Patient Tolerance Tolerated Well Plan/Recommendation Comment No current need for debridement of wounds at this time. [facility] staff to continue dressing changes as needed. Eval Complexity Eval Charge Codes 56595 - High Complexity PHYSICIAN CERTIFICATION: I certify the specified therapy services for Sheri Laughlin are required, authorized, and reviewed every 30 days.
[2024-02-04 11:48] LABS: Hypochromasia 2+; Lymphocytes % 12 % (10-50); Monocytes % 4 % (2-9); Neutrophils % 84 % (42-76); Platelet Estimate Normal; Total Cells Counted 100
[2024-02-04 11:53] LABS: Creatine Kinase 8232 U/L (30-135)
[2024-02-04 12:46] LABS: Hemoglobin 11.2 g/dL (12.2-16.2)
--- NOTE | 2024-02-04 13:27 | P.PN_ITS ---
Subjective *Date: 02/04/24 *Time: 19:37 Interval history: Ms. Laughlin denies any chest pain or shortness of breath. Complains of global weakness. Sore all over from her fall. Alert and oriented x 3. Brother in the room with her on rounds. Able to get to chair with therapy. Still quite weak. Urine clearing in Walter bag. Medical Exam Vital signs and Labs for Last 24 Hours: Vital Signs Temp Pulse Pulse Resp BP BP Pulse Ox 02/04/24 13:00 02/04/24 11:00 02/04/24 09:00 02/04/24 08:00 02/04/24 08:00 98.0 F 66 16 104/40 L 95 02/04/24 07:00 02/04/24 05:00 02/04/24 04:00 97.8 F 68 18 110/64 94 L 02/04/24 03:00 02/04/24 01:00 02/03/24 23:00 02/03/24 21:00 02/03/24 20:00 02/03/24 19:00 02/03/24 18:24 60 14 111/69 94 L 02/03/24 18:03 98.0 F 92 H 22 114/93 H 02/03/24 16:32 92 H 114/93 H 94 L 02/03/24 15:31 65 22 130/112 H 100 02/03/24 15:00 97 H 20 120/101 H 100 02/03/24 14:30 20 132/107 H 100 02/03/24 14:22 20 140/81 100 02/03/24 14:17 64 22 77/54 L 100 O2 Del Method O2 Flow Rate 02/04/24 13:00 Room Air 02/04/24 11:00 Room Air 02/04/24 09:00 Room Air 02/04/24 08:00 Room Air 02/04/24 08:00 Room Air 02/04/24 07:00 Room Air 02/04/24 05:00 Room Air 02/04/24 04:00 Room Air 02/04/24 03:00 Room Air 02/04/24 01:00 Room Air 02/03/24 23:00 Room Air 02/03/24 21:00 Room Air 02/03/24 20:00 Room Air 02/03/24 19:00 Room Air 02/03/24 18:24 Room Air 02/03/24 18:03 Room Air 02/03/24 16:32 Room Air 02/03/24 15:31 02/03/24 15:00 Nasal Cannula 2 02/03/24 14:30 02/03/24 14:22 02/03/24 14:17 Intake and Output 02/03/24 02/04/24 02/04/24 23:59 07:59 15:59 Intake Total 0 / 0 720 / 960 240 / 960 Output Total 600 / 600 Balance 0 / 0 120 / 360 240 / 360 Intake: Intake, Oral Amount 0 / 0 720 / 960 240 / 960 Output: Output, Urine Amount 600 / 600 Other: Number of Voids 0 Number of Bowel Movements 1 Weight 93.123 kg Patient Weight 02/04/24 23:59 Weight 93.123 kg Laboratory Results - last 24 hr 02/03/24 12:35: Urine Color Dark yellow, Urine Appearance Clear, Urine pH 5.5, Ur Specific [place] >= 1.030, Urine Protein 2+, Urine Glucose (UA) Negative, Urine Ketones Negative, Urine Blood 3+, Urine Nitrate Negative, Urine Bilirubin 2+ A, Urine Urobilinogen 1.0, Ur Leukocyte Esterase Negative, Urine RBC 5-10, Urine WBC None, Ur Squamous Epith Cells Occasional, Urine Bacteria 1+, Fine Gra nular Casts Occasional, Urine Yeast Occasional 02/03/24 12:40: Total Counted 100, Neutrophils % (Manual) 84 H, Lymphocytes % (Manual) 14, Monocytes % (Manual) 2, Platelet Estimate Normal, RBC Morphology Normal, PT 11.5, INR 1.07, APTT 28.5, Total Creatine Kinase 60137 H* 02/03/24 17:25: Lactate 2.7 H 02/03/24 20:02: Lactate 2.8 H 02/04/24 09:03: WBC 12.8 H, RBC 3.87 L, Hgb 11.2 L D, Hct 36.2 L, MCV 93.7, MCH 29.0, MCHC 30.9 L, RDW 14.2, Plt Count 302 D, MPV 7.5, Neut % (Auto) 85.4 H, Lymph % (Auto) 9.1 L, George % (Auto) 4.8, Eos % (Auto) 0.4, Baso % (Auto) 0.2, Neut # (Auto) 10.9 H, Lymph # (Auto) 1.2, [place] # (Auto) 0.6, Eos # (Auto) 0.1, Baso # (Auto) 0.0, Total Counted 100, Neutrophils % (Manual) 84 H, Lymphocytes % (Manual) 12, Monocytes % (Manual) 4, Platelet Estimate Normal, Hypochromasia 2+, Sodium 130 L, Potassium 4.8, Chloride 102, Carbon Dioxide 20 L, Anion Gap 12.8, BUN 25 H, Creatinine 0.90, Estimated Creat Clear 57, Estimated GFR 59, Est GFR ( Amer) 71, Glucose 144 H, Hemoglobin A1c 5.7, Calcium 8.6, Magnesium 2.0, Total Bilirubin 0.8, AST 195 H, ALT 86 H, Alkaline Phosphatase 100, Total Creatine Kinase 8232 H* D, Total Protein 5.6 L, Albumin 3.0 L D, Globulin 2.6, Albumin/Globulin Ratio 1.2, TSH 3.88 I & O for Labs for Last 24 Hours: Intake & Output 02/01/24 02/02/24 02/03/24 02/04/24 23:59 23:59 23:59 23:59 Intake Total 0 / 0 960 / 960 Output Total 600 / 600 Balance 0 / 0 360 / 360 Weight 87.997 kg 93.123 kg Constitutional: Present no acute distress, obese, chronically ill appearing and cooperative Comment:: Bruising around left eye, laceration stable above left eye Respiratory: Present normal respiratory effort Cardiac: Present Reg Rate and Rhythm GI: Present normal bowel sounds; Absent tenderness Extremities: Present normal inspection and full ROM Skin: Present intact; Absent erythema Neuro: Present Grossly Intact and moves all extremities Assessment and Plan *Assessment and plan (1) Afib: Status: Acute Category: Medical Code(s): I48.91 - Unspecified atrial fibrillation (2) Rhabdomyolysis: Status: Acute Category: Medical Code(s): M62.82 - Rhabdomyolysis (3) HTN (hypertension): Status: Acute Category: Medical Code(s): I10 - Essential (primary) hypertension (4) Lymphedema of right upper extremity: Status: Acute Category: Medical Code(s): I89.0 - Lymphedema, not elsewhere classified (5) Obesity (BMI 30.0-34.9): Status: Acute Category: Medical Code(s): E66.9 - Obesity, unspecified (6) Fall: Status: Acute Category: Medical Code(s): W19.XXXA - Unspecified fall, initial encounter (7) Facial laceration: Status: Acute Category: Medical Code(s): S01.81XA - Laceration without foreign body of other part of head, initial encounter Plan 89-year-old female found down at home. Concern for prolonged immobility. Presented to the ER with pain, fracture of right wrist, lacerations. Found to have rhabdomyolysis. Discussed case with ER physician, request admission for treatment of rhabdomyolysis, therapy eval, possible placement. Medicine agreed to admit for further management. Case management assisting with placement recommendations. Continues to require inpatient management pending placement. Patient is unsafe to go home. Problems addressed as follows: Fall Rhabdomyolysis -CK elevated at 11,000 on admission, improved to 8000 today. Kidney function remains normal with creatinine of 1. Urine output acceptable at this time. Close monitoring. Repeat BMP this afternoon to monitor creatinine -Continue LR 200 cc an hour to promote urine output and flushing of kidneys and decrease risk for SANTIAGO for rhabdomyolysis - Repeat CBC, CMP, magnesium ordered for the morning. -Pain diffusely due to fall, trauma, rhabdo, Tylenol 650 mg every 6 hours as needed. -Wound consult placed for abrasions to left arm. Atrial fibrillation Hypertension -EKG obtained this morning, patient back in normal sinus rhythm. Continue metoprolol 25 mg twice daily. Echo obtained and pending -[id number] of 5. Will discuss anticoagulation again in the morning pending finding on echo. Risk for bleeding and possible intracranial trauma given falls. Will have shared discussion in the morning with patient and family. Mood: Continue BuSpar 10 mg 3 times a day Full code Cardiac diet Heparin subcu 3 times daily
[2024-02-04] MEDS: ACETAMINOPHEN 325MG TAB 650 MG PO (15:58)
[2024-02-04 16:00] VITALS: BP 115/75; PULSE 66; RESP 19; TEMP 36.6; O2SAT 93
--- NOTE | 2024-02-04 16:18 | PC.NURSE ---
Chronic right lower leg dressing changed. Pictures taken
--- NOTE | 2024-02-04 17:02 | PC.NURSE ---
Patient alert but not consistently oriented. VSS. On room air. Walter output adequate but concentrated. Tylenol for complaint of generalized discomfort with improvement of symptoms. Dressing on skin tear left elbow and chronic venous stasis wound right lower leg changed. IV fluids infusing per orders. Plan to discharge to [facility] when medically stable.
[2024-02-04 17:24] LABS: Anion Gap 11.6 mEq/L (5-15); Blood Urea Nitrogen 28 mg/dl (7-17); Calcium 8.5 mg/dl (8.4-10.2); Carbon Dioxide 23 mmol/L (22.0-30.0); Chloride 99 mmol/L (98-107); Creatinine Clearance Estimated 57 mL/min (50-200); Estimated Glomerular Filt Rate 52 ml/min (>60); GFR (African American) 63 ML/MIN (>60); Glucose 115 mg/dl (74-100); Potassium 4.6 mmoL/L (3.5-5.1); Sodium 129 mmol/L (136-145)
--- NOTE | 2024-02-04 18:37 | PC.NURSE ---
Dr. Lewis notified of patient's urine output. Order received to increase LR to 200 ml/hr and will recheck labs in morning
[2024-02-04 19:58] VITALS: BP 107/69; PULSE 47; RESP 17; TEMP 36.6; O2SAT 90
[2024-02-04 20:00] VITALS: O2SAT 90
[2024-02-04 20:26] LABS: POC Glucose,Bedside 114 (70-110)
[2024-02-04] MEDS: BUSPIRONE 15 MG 1 EACH PO (21:14)
[2024-02-04] MEDS: BUSPIRONE HCL 10 MG TABLET 15 MG PO (21:15)
[2024-02-04] MEDS: PANTOPRAZOLE 40MG TABLET 40 MG PO (21:17)
[2024-02-04] MEDS: LACTATED RINGERS 1000ML 1,000 ML 200 ML IV (23:48)
[2024-02-05] MEDS: FUROSEMIDE 40MG/4ML VIAL 40 MG IV ×2 (00:01→09:00)
[2024-02-05 00:05] VITALS: BP 129/63; PULSE 65; RESP 20; TEMP 36.5; O2SAT 97
--- NOTE | 2024-02-05 00:56 | PC.NURSE ---
SPOKE TO SESAR Harvey NP AT MIDNIGHT RE EXCESSIVE EDEMA IN ALL EXTREMITIES ESPECIALLY THE KRYSTYNA. IV LR INFUSING AT 200 ML/HR. (METOPROLOL WAS HELD AT 2100 DUE TO 47 HR AND BP 109/69). IVP LASIX 40 MG GIVEN (BP 129/68 HR 65.
[2024-02-05] MEDS: ACETAMINOPHEN 325MG TAB 650 MG PO ×3 (01:50→18:20)
[2024-02-05 04:00] VITALS: BP 144/67; PULSE 61; RESP 16; TEMP 36.9; O2SAT 96; BMI 33.5
[2024-02-05] MEDS: LACTATED RINGERS 1000ML 1,000 ML 200 ML IV (04:24)
--- NOTE | 2024-02-05 04:24 | PC.NURSE ---
PATIENT ANSWERES QUESTIONS APPROPRIATELY BUT YELL OUT FOR STAFF JUST TO REMIND THEM SHE IS IN THE ROOM. SOME CONFUSION AT TIMES.
[2024-02-05 07:35] LABS: Basophils % 0.3 % (0.1-2.0); Eosinophils # 0.1 K/mm3 (0.0-0.4); Eosinophils % 1.3 % (0.1-12.0); Hemoglobin 10.4 g/dL (12.2-16.2); Lymphocytes # 1.6 K/mm3 (0.7-4.5); Lymphocytes % 15.1 % (10-50); Mean Corpuscular HGB Conc 31.5 g/dL (31.8-35.4); Mean Corpuscular Hemoglobin 29.2 pg (27.0-31.2); Mean Corpuscular Volume 92.7 fl (81-99); Mean Platelet Volume 7.9 fl (7.4-10.4); Monocytes # 0.6 K/mm3 (0.1-1.0); Monocytes % 5.5 % (1.7-9.3); Neutrophils # 8.4 K/mm3 (1.8-7.8); Neutrophils % 77.9 % (37.0-80.0); Platelet Count 293 K/mm3 (142-424); Red Blood Count 3.55 M/mm3 (4.20-5.40); Red Cell Distribution Width 14.3 % (11.5-17.5); White Blood Count 10.8 K/mm3 (4.8-10.8)
[2024-02-05 07:50] LABS: Alanine Aminotransferase 94 U/L (12-78); Albumin Level 2.8 g/dl (3.5-5.0); Albumin/Globulin Ratio 1.1 (1.1-1.8); Alkaline Phosphatase 98 U/L (38-126); Anion Gap 9.3 mEq/L (5-15); Aspartate Amino Transferase 195 U/L (14-36); Bilirubin,Total 0.9 mg/dl (0.2-1.3); Blood Urea Nitrogen 29 mg/dl (7-17); Calcium 8.4 mg/dl (8.4-10.2); Carbon Dioxide 23 mmol/L (22.0-30.0); Chloride 101 mmol/L (98-107); Creatinine Clearance Estimated 59 mL/min (50-200); Estimated Glomerular Filt Rate 59 ml/min (>60); GFR (African American) 71 ML/MIN (>60); Globulin 2.6 g/dL (1.3-3.2); Glucose 97 mg/dl (74-100); Magnesium 1.9 mg/dl (1.6-2.3); Potassium 4.3 mmoL/L (3.5-5.1); Sodium 129 mmol/L (136-145); Total Protein,Serum 5.4 g/dl (6.3-8.2)
[2024-02-05 08:00] VITALS: BP 128/56; PULSE 63; RESP 18; TEMP 36.6; O2SAT 95
[2024-02-05 08:58] LABS: Creatine Kinase 6526 U/L (30-135)
[2024-02-05] MEDS: METOPROLOL TARTRATE 25MG TABLET 25 MG PO ×2 (09:43→20:53)
[2024-02-05] MEDS: HEPARIN SODIUM 5,000 UNIT/ML VIAL 5000 UNIT SQ ×3 (09:44→20:53)
[2024-02-05] MEDS: BUSPIRONE HCL 10 MG TABLET 15 MG PO ×3 (09:48→20:53)
--- NOTE | 2024-02-05 10:53 | EXP.ACUTE.PN ---
Subjective *Date: 02/05/24 *Time: 16:13 Interval history: Mild confusion on workup this morning but became oriented as the morning went on. Afebrile overnight. Having adequate urine output. Some edema overnight, initiated on diuretics. Kidney function remained stable. CK improving. No nausea or vomiting. On room air. Medical Exam Vital signs and Labs for Last 24 Hours: Vital Signs Temp Pulse Resp BP Pulse Ox O2 Del Method 02/05/24 09:00 Room Air 02/05/24 08:00 95 Room Air 02/05/24 08:00 97.9 F 63 18 128/56 L 95 Room Air 02/05/24 06:46 Room Air 02/05/24 05:00 Room Air 02/05/24 04:00 98.4 F 61 16 144/67 H 96 Room Air 02/05/24 03:00 Room Air 02/05/24 01:00 Room Air 02/05/24 00:05 97.7 F 65 20 129/63 97 Room Air 02/04/24 23:00 Room Air 02/04/24 21:00 Room Air 02/04/24 20:00 90 L Room Air 02/04/24 19:58 97.9 F 47 L 17 107/69 L 90 L Room Air 02/04/24 18:48 Room Air 02/04/24 17:00 Room Air 02/04/24 16:00 97.9 F 66 19 115/75 93 L Room Air 02/04/24 15:10 Room Air 02/04/24 13:00 Room Air 02/04/24 11:00 Room Air Intake and Output 02/04/24 02/05/24 02/05/24 23:59 07:59 15:59 Intake Total 4779 / 6099 390 / 390 Output Total 300 / 900 1200 / 1200 Balance 4479 / 5199 -1200 / -810 390 / -810 Intake: Intake, Oral Amount 800 / 2120 390 / 390 Intake, Total IV Amount 3979 / 3979 Lactated Ringers 1000ML 1,000 3979 / 3979 ml @ 200 mls/hr IV .Q5H [facility] Rx# :[id number] Output: Output, Urine Amount 1200 / 1200 Output, Urine Amount (Catheter) 300 / 300 Walter 300 / 300 Other: Number of Unmeasured Voids 0 Weight 96.887 kg Patient Weight 02/05/24 23:59 Weight 96.887 kg Laboratory Results - last 24 hr 02/04/24 09:03: Hgb 11.2 L D, Total Counted 100, Neutrophils % (Manual) 84 H, Lymphocytes % (Manual) 12, Monocytes % (Manual) 4, Platelet Estimate Normal, Hypochromasia 2+, Total Creatine Kinase 8232 H* D, TSH 3.88 02/04/24 16:45: Sodium 129 L, Potassium 4.6, Chloride 99, Carbon Dioxide 23, Anion Gap 11.6, BUN 28 H, Creatinine 1.00, Estimated Creat Clear 57, Estimated GFR 52 L, Est GFR ( Amer) 63, Glucose 115 H D, Calcium 8.5 02/04/24 20:02: POC Glucose 114 H 02/05/24 07:26: WBC 10.8, RBC 3.55 L, Hgb 10.4 L, Hct 33.0 L, MCV 92.7, MCH 29.2, MCHC 31.5 L, RDW 14.3, Plt Count 293, MPV 7.9, Neut % (Auto) 77.9, Lymph % (Auto) 15.1, [place] % (Auto) 5.5, Eos % (Auto) 1.3, Baso % (Auto) 0.3, Neut # (Auto) 8.4 H, Lymph # (Auto) 1.6, [place] # (Auto) 0.6, Eos # (Auto) 0.1, Baso # (Auto) 0.0, Sodium 129 L, Potassium 4.3, Chloride 101, Carbon Dioxide 23, Anion Gap 9.3, BUN 29 H, Creatinine 0.90, Estimated Creat Clear 59, Estimated GFR 59, Est GFR ( Amer) 71, Glucose 97, Calcium 8.4, Magnesium 1.9, Total Bilirubin 0.9, AST 195 H, ALT 94 H, Alkaline Phosphatase 98, Total Creatine Kinase 6526 H*, Total Protein 5.4 L, Albumin 2.8 L, Globulin 2.6, Albumin/Globulin Ratio 1.1 I & O for Labs for Last 24 Hours: Intake & Output 02/02/24 02/03/24 02/04/24 02/05/24 23:59 23:59 23:59 23:59 Intake Total 0 / 0 6099 / 6099 390 / 390 Output Total 900 / 900 1200 / 1200 Balance 0 / 0 5199 / 5199 -810 / -810 Weight 87.997 kg 93.123 kg 96.887 kg Constitutional: Present no acute distress, obese, chronically ill appearing and cooperative Head: Present normocephalic; Absent atraumatic ENT: Present normal exam Comment:: Bruising around left eye, laceration stable above left eye Respiratory: Present normal respiratory effort Cardiac: Present Reg Rate and Rhythm GI: Present normal bowel sounds; Absent tenderness Extremities: Present normal inspection, full ROM and edema (1+ edema to knees) Skin: Present intact; Absent erythema Neuro: Present Grossly Intact and moves all extremities Assessment and Plan *Assessment and plan (1) Afib: Status: Acute Category: Medical Code(s): I48.91 - Unspecified atrial fibrillation (2) Rhabdomyolysis: Status: Acute Category: Medical Code(s): M62.82 - Rhabdomyolysis (3) HTN (hypertension): Status: Acute Category: Medical Code(s): I10 - Essential (primary) hypertension (4) Lymphedema of right upper extremity: Status: Acute Category: Medical Code(s): I89.0 - Lymphedema, not elsewhere classified (5) Obesity (BMI 30.0-34.9): Status: Acute Category: Medical Code(s): E66.9 - Obesity, unspecified (6) Fall: Status: Acute Category: Medical Code(s): W19.XXXA - Unspecified fall, initial encounter (7) Facial laceration: Status: Acute Category: Medical Code(s): S01.81XA - Laceration without foreign body of other part of head, initial encounter Plan 89-year-old female found down at home. Concern for prolonged immobility. Presented to the ER with pain, fracture of right wrist, lacerations. Found to have rhabdomyolysis. Discussed case with ER physician, request admission for treatment of rhabdomyolysis, therapy eval, possible placement. Medicine agreed to admit for further management. Case management assisting with placement recommendations. Continues to require inpatient management pending placement. Patient is unsafe to go home. Problems addressed as follows: Fall Rhabdomyolysis -CK elevated at 11,000 on admission, continues to improve, 6500 today. Making adequate urine. Urine light yellow to clear. Kidney function remained stable with creatinine 1.9 and BUN 29. -Repeat CBC, CMP, magnesium ordered for the morning. -Discontinue IV fluids -Pain diffusely due to fall, trauma, rhabdo, Tylenol 650 mg every 6 hours as needed. -Wound consult placed for abrasions to left arm. Atrial fibrillation Hypertension -Heart rate remaining controlled. Continue metoprolol 25 mg twice daily. Echo obtained and pending -[id number] of 5. Will discuss anticoagulation again in the morning pending finding on echo. Risk for bleeding and possible intracranial trauma given falls. Will have shared discussion in the morning with patient and family. Mood: Continue BuSpar 10 mg 3 times a day Full code Cardiac diet Heparin subcu 3 times daily
[2024-02-05 12:30] VITALS: BMI 33.5
[2024-02-05 16:00] VITALS: BP 122/68; PULSE 64; RESP 18; TEMP 36.5; O2SAT 98
--- NOTE | 2024-02-05 18:46 | PC.NURSE ---
patient remains alert and oriented x4 with periods of confusion, she is easily reoriented. VSS, still on RA. Walter cath. removed today per MD order, pt to void per bedpan and encouraged to ring call light when she feels the urge to void. Telfa dressing on left elbow changed 3x today, serious drainage noted, nikolai placed underneath to avoid saturating her gown/bedding. Pt c/o generalized pain this morning and again this evening, treated with tylenol per JAN. Pt ate most of her dinner with assistance, call light in reach.
[2024-02-05 20:00] VITALS: BP 132/69; PULSE 69; RESP 17; TEMP 37.2; O2SAT 96
[2024-02-05] MEDS: PANTOPRAZOLE 40MG TABLET 40 MG PO (20:53)
--- NOTE | 2024-02-06 02:28 | PC.NURSE ---
PATIENT HAS SPLINT/KENDAL WRAP TO RIGHT WRIST. FINGERS WARM. TRIES TO WIGGLE FINGERS. NUMEROUS BRUISES RESOLVING , LEFT ORBIT, BOTH ARMS, LEFT HAND, LEFT LATERAL BACK, ABRASION STAMPING DIE MAKER BENCH LEFT SHOULDER. TELFA DRSG INTACT TO LEFT SKIN TEAR. VOICES NO COMPLAINTS ON THIS SHIFT OF YET. EDEMA PRESENT ALL EXTREMITIE BUT APPEAR TO BE REDUCING SOME ON LEGS. HAS VOIDED 200 ML CLEAR YELLOW URINE PER [facility]. REQUIRED 2 ASSIST.
[2024-02-06 04:00] VITALS: BP 130/63; PULSE 68; RESP 17; TEMP 37.2; O2SAT 95; BMI 33.6
--- NOTE | 2024-02-06 07:43 | P.DS_ITS ---
General Admission date:: 02/03/24 Discharge date: 02/06/24 HPI HPI HPI: Ms. Laughlin is an 89-year-old female who lives by herself. She reports falling in her bathroom around midnight last night. Was found this morning after being down for 10 to 12 hours by her campground caretaker. Came in to the ER because of pain all over, trauma, concern for possible fractures. Workup in the ER, noted to have abrasions on her left shoulder, left knee, left forearm. Having significant right wrist pain. Had a laceration above her left eye with dried blood in her hair. History significant for peripheral vascular disease, A-fib, hypertension, worsening dizziness lately. States that she has been getting around with her walker but felt dizzy. Workup in the ER with positive findings for rhabdomyolysis and right distal radial fracture. Wrist was braced, orthopedics was consulted. Recommended nonoperative management at this time with close follow-up for further management in 1 to 2 weeks. Given her rhabdomyolysis and debility and fall, necessitates inpatient admission for IV fluids, therapy eval's, possible placement. Medicine consulted for further management and admission. Upon arriving to the floor, patient presents with her brother. She is on room air. Denies any nausea or vomiting. Alert and oriented at baseline. Complaining of pain in her left shoulder and left side of her head. States she feels quite weak. Hospital Course Hospital Course Hospital Course: 89-year-old female found down at home. Concern for prolonged immobility. Presented to the ER with pain, fracture of right wrist, lacerations. Found to have rhabdomyolysis. Discussed case with ER physician, request admission for treatment of rhabdomyolysis, therapy eval, possible placement. Medicine agreed to admit for further management. Case management assisting with placement recommendations. Patient has overall done well. Working with therapy. Right wrist in splint. Patient needs placement for therapy, graciously excepted by Gerald Chang. Stable for discharge at this time. Problems addressed as follows: Fall Rhabdomyolysis -CK elevated at 11,000 on admission, showed gradual improvement with IV fluids. CK down to 2400 on day of discharge. Has been making adequate urine, urine clear. Walter catheter out for over 24 hours with no signs of obstruction. Creatinine normal at 0.9 with BUN of 25. Patient still has diffuse pain. Secondary to her trauma from her fall and her rhabdo. Continue Tylenol 650 mg as needed every 6 hours. Wound consult was placed for abrasions on left arm, continue with nonstick dressings. Distal radial fracture: In a splint during admission. Stable. Pain controlled with Tylenol. Will have follow-up with orthopedics for further management. Paroxysmal atrial fibrillation Hypertension -Presented with A-fib. Heart rate converted to sinus rhythm and has been sinus rhythm since second day of admission. Transition to metoprolol 25 mg twice daily. Echo obtained, formal read still pending. Patient has an elevated [id number] of 5. Would benefit from anticoagulation however given fall risk, feel bleed risk at this time outweighs potential benefit in light of heart rate converting to normal sinus rhythm. Would recommend further discussion if patient's mobility improves and fall risk decreases along with if she goes back into A-fib about the risks and benefits of oral anticoagulation at that time. In the meantime would recommend daily aspirin 81 mg. Mood: Continue BuSpar 10 mg 3 times a day Total time spent on discharge 32 minutes in counseling, documentation, chart review, and direct care with patient. Exam Data for Last 24 hours Vital signs and Labs for Last 24 Hours: Temp Pulse Resp BP Pulse Ox O2 Del Method O2 Flow Rate 98.9 F 68 17 130/63 95 Room Air 2 02/06/24 04:00 02/06/24 04:00 02/06/24 04:00 02/06/24 04:00 02/06/24 04:00 02/06/24 06:34 02/03/24 15:00 Laboratory Results - last 24 hr 02/05/24 07:26: Sodium 129 L, Potassium 4.3, Chloride 101, Carbon Dioxide 23, Anion Gap 9.3, BUN 29 H, Creatinine 0.90, Estimated Creat Clear 59, Estimated GFR 59, Est GFR ( Amer) 71, Glucose 97, Calcium 8.4, Magnesium 1.9, Total Bilirubin 0.9, AST 195 H, ALT 94 H, Alkaline Phosphatase 98, Total Creatine Kinase 6526 H*, Total Protein 5.4 L, Albumin 2.8 L, Globulin 2.6, Albumin/Globulin Ratio 1.1 I & O for Last 24 hours: Intake & Output 02/03/24 02/04/24 02/05/24 02/06/24 23:59 23:59 23:59 23:59 Intake Total 0 / 0 6099 / 6099 730 / 950 220 / 220 Output Total 900 / 900 4800 / 4800 250 / 250 Balance 0 / 0 5199 / 5199 -4070 / -3850 -30 / -30 Weight 87.997 kg 93.123 kg 96.88 kg 97.205 kg Constitutional Constitutional: no acute distress, obese, chronically ill appearing and cooperative *Routine HEENT Exam Head: Present normocephalic Eye: Present EOMI and PERRL ENT: Present mucous membranes moist Comments: Laceration above left eye glued closed, no redness or drainage. *Routine Neck Exam Neck: Present supple; Absent lymphadenopathy *Routine Respiratory Exam Respiratory: Present CTA bilaterally and able to speak in complete sentences; Absent rhonchi, wheezes or crackles *Routine Cardiovascular Exam Cardiovascular: Present RRR *Routine Abdominal Exam Abdominal: Present soft and normoactive bowel sounds; Absent tenderness *Routine Rectal Exam Patient deferred: visual exam *Routine Exam Patient deferred: external exam *Routine Extremities Exam Extremities: Present edema (1+ in BLE); Absent cyanosis or clubbing Comments: Right arm with lymphedema, in splint *Routine Skin Exam Skin: Present warm; Absent rash Comments: Abrasion on left shoulder and left forearm *Routine Neurological Exam Neurological: Present alert, oriented X3 and moving all extremities; Absent alt ered mental status Results Data Completed and Pending Labs on day of discharge: Labs from last 24 hours 02/05/24 07:26 Sodium 129 L Potassium 4.3 Chloride 101 Carbon Dioxide 23 Anion Gap 9.3 BUN 29 H Creatinine 0.90 Estimated Creat Clear 59 Estimated GFR 59 Est GFR ( Amer) 71 Glucose 97 Calcium 8.4 Magnesium 1.9 Total Bilirubin 0.9 AST 195 H ALT 94 H Alkaline Phosphatase 98 Total Creatine Kinase 6526 H* Total Protein 5.4 L Albumin 2.8 L Globulin 2.6 Albumin/Globulin Ratio 1.1 DS: Diagnosis Discharge Diagnosis (1) Paroxysmal A-fib: Status: Acute Code(s): I48.0 - Paroxysmal atrial fibrillation (2) Rhabdomyolysis: Status: Acute Code(s): M62.82 - Rhabdomyolysis (3) HTN (hypertension): Status: Acute Code(s): I10 - Essential (primary) hypertension (4) Lymphedema of right upper extremity: Status: Acute Code(s): I89.0 - Lymphedema, not elsewhere classified (5) Obesity (BMI 30.0-34.9): Status: Acute Code(s): E66.9 - Obesity, unspecified (6) Fall: Status: Acute Code(s): W19.XXXA - Unspecified fall, initial encounter (7) Facial laceration: Status: Acute Code(s): S01.81XA - Laceration without foreign body of other part of head, initial encounter Meds Home Medications and Allergies Home Medications Medication Instructions Recorded Confirmed Type potassium chloride 10 mEq 10 meq PO DAILY 04/11/22 02/03/24 History capsule,extended release omeprazole magnesium 20 mg 20 mg PO DAILY 07/23/23 02/03/24 History tablet,delayed release (Prilosec OTC) buspirone 15 mg tablet 15 mg PO TID 02/04/24 02/04/24 History aspirin 81 mg tablet,delayed 81 mg PO DAILY #30 tabs 02/06/24 Rx release metoprolol tartrate 25 mg tablet 25 mg PO BID 30 days #60 tabs 02/06/24 Rx New Prescriptions to Start Prescriptions: Kedar Greer metoprolol tartrate Kedar Lewis Allergies Allergy/AdvReac Type Severity Reaction Status Date / Time atorvastatin [ATORVASTATIN] Allergy Unknown MUSCLE, Verified 07/23/23 13:09 UNABLE TO WALK cefuroxime [CEFUROXIME] Allergy Unknown I-RASH Verified 07/23/23 13:09 clindamycin [CLINDAMYCIN] Allergy Unknown Verified 07/23/23 13:09 duloxetine [DULOXETINE] Allergy Unknown NA-NAUSEA Verified 07/23/23 13:09 gabapentin [GABAPENTIN] Allergy Unknown SHAKEY Verified 07/23/23 13:09 penicillin V [PENICILLIN V] Allergy Unknown I-RASH, Verified 07/23/23 13:09 NAUSEA tegaserod [From ZELNORM] Allergy Unknown NA-NAUSEA Verified 07/23/23 13:09 tetracycline [TETRACYCLINE] Allergy Unknown RASH, Verified 07/23/23 13:09 NAUSEA tramadol [TRAMADOL] Allergy Unknown Verified 07/23/23 13:09 Cephalosporins Allergy Verified 12/09/23 12:18 Discharge Plan Disposition Patient Disposition: [facility] Condition: Fair Discharge Order Discharge Orders: Discharge Order (Routine); Ordered 03/08/24 Ordered By: Kedar Lewis Follow up Plan Follow up with: Lit Santana DO [Staff Physician] - 1 week Prescriptions/Medication Reconciliation: New metoprolol tartrate 25 mg Tablet 25 mg PO BID 30 Days Qty: 60 0RF aspirin 81 mg tablet,delayed release (DR/EC) 81 mg PO DAILY Qty: 30 0RF Continued omeprazole magnesium [Prilosec OTC] 20 mg tablet,delayed release (DR/EC) 20 mg PO DAILY potassium chloride 10 mEq capsule, extended release 10 meq PO DAILY Patient Comments: TAKE ONE CAPSULE BY MOUTH EVERY DAY DIRECTED buspirone 15 mg tablet 15 mg PO TID Patient Comments: TAKE ONE TABLET BY MOUTH THREE TIMES DAILY MAY CAUSE DROWSINESS Discontinued nebivolol 10 mg tablet 10 mg PO DAILY 30 Days Qty: 30 Patient Comments: TAKE 1 TABLET BY MOUTH EVERY DAY Problem Reconciliation Problems Reviewed?: Yes Patient Discharge Instructions ACTIVITY: Ambulate as tolerated DIET: continue same diet Patient Instructions: How to Prevent Falls, DI for Rhabdomyolysis, Catheter- Associated Urinary Tract Infection Providers Primary Care Provider: Fatmata Hercules Admit Provider: Kedar Lewis Attending Provider: Kedar Lewis
[2024-02-06 08:00] VITALS: BP 141/73; PULSE 64; RESP 18; TEMP 37.1; O2SAT 97
[2024-02-06 08:04] LABS: Basophils % 0.5 % (0.1-2.0); Eosinophils # 0.1 K/mm3 (0.0-0.4); Eosinophils % 1.8 % (0.1-12.0); Hematocrit 33.8 % (37.0-47.0); Hemoglobin 10.6 g/dL (12.2-16.2); Lymphocytes # 1.5 K/mm3 (0.7-4.5); Lymphocytes % 19.8 % (10-50); Mean Corpuscular HGB Conc 31.4 g/dL (31.8-35.4); Mean Corpuscular Volume 92.2 fl (81-99); Mean Platelet Volume 7.8 fl (7.4-10.4); Monocytes # 0.5 K/mm3 (0.1-1.0); Monocytes % 5.9 % (1.7-9.3); Neutrophils # 5.5 K/mm3 (1.8-7.8); Platelet Count 346 K/mm3 (142-424); Red Blood Count 3.66 M/mm3 (4.20-5.40); Red Cell Distribution Width 14.3 % (11.5-17.5); White Blood Count 7.7 K/mm3 (4.8-10.8)
[2024-02-06 08:16] LABS: Alanine Aminotransferase 92 U/L (12-78); Albumin Level 2.9 g/dl (3.5-5.0); Albumin/Globulin Ratio 1.1 (1.1-1.8); Alkaline Phosphatase 102 U/L (38-126); Aspartate Amino Transferase 150 U/L (14-36); Bilirubin,Total 0.8 mg/dl (0.2-1.3); Blood Urea Nitrogen 25 mg/dl (7-17); Calcium 8.3 mg/dl (8.4-10.2); Carbon Dioxide 29 mmol/L (22.0-30.0); Chloride 98 mmol/L (98-107); Creatinine Clearance Estimated 60 mL/min (50-200); Estimated Glomerular Filt Rate 59 ml/min (>60); GFR (African American) 71 ML/MIN (>60); Globulin 2.7 g/dL (1.3-3.2); Glucose 98 mg/dl (74-100); Sodium 129 mmol/L (136-145); Total Protein,Serum 5.6 g/dl (6.3-8.2)
[2024-02-06 08:27] LABS: Magnesium 1.9 mg/dl (1.6-2.3)
[2024-02-06 08:35] LABS: Creatine Kinase 2484 U/L (30-135)
[2024-02-06] MEDS: BUSPIRONE HCL 10 MG TABLET 15 MG PO (09:09)
[2024-02-06] MEDS: METOPROLOL TARTRATE 25MG TABLET 25 MG PO (09:09)
== END 2024-02-06 11:05 | DRG 565 ==
LOC: ER 16:53 → 2ND 17:41
PROVIDERS: Emergency Medicine; Admitting Provider Internal Medicine Adolescent Medicine; Emergency Provider Emergency Medicine; PCP Nurse Practitioner Family; Visit Provider Internal Medicine Adolescent Medicine
DX: T79.6XXA Traumatic ischemia of muscle, initial encounter (principal); S52.501A Unspecified fracture of the lower end of right radius, initial encounter for closed fracture; I10 Essential (primary) hypertension; I89.0 Lymphedema, not elsewhere classified; E66.9 Obesity, unspecified; W19.XXXA Unspecified fall, initial encounter; S01.81XA Laceration without foreign body of other part of head, initial encounter; F03.90 Unspecified dementia, unspecified severity, without behavioral disturbance, psychotic disturbance, mood disturbance, and anxiety; I73.9 Peripheral vascular disease, unspecified; Z68.33 Body mass index [BMI] 33.0-33.9, adult; S01.112A Laceration without foreign body of left eyelid and periocular area, initial encounter; Z85.3 Personal history of malignant neoplasm of breast; I48.0 Paroxysmal atrial fibrillation
CPT/HCPCS: 36415; 70450; 70496; 70498; 71045; 71275; 72125; 72128; 72131; 72170; 72192; 73030; 73060; 73070; 73090; 73110; 73120; 74174; 80048; 80053; 81001; 82550; 82962; 83036; 83605; 83690; 83735; 84443; 85007; 85025; 85610; 85730; 93005; 93306; 97163; 97165; 97530; 99285; J2405; Q9967

== ENCOUNTER 2024-03-04 09:01 | Outpatient (CLI) | payer MEDICARE, SELFPAY ==
--- NOTE | 2024-03-04 09:06 | XR_ITS ---
FINAL REPORT CLINICAL HISTORY: Rt Wrist Fx COMPARISON: 02/03/2024 FINDINGS: RIGHT WRIST Three views demonstrate a comminuted impacted fracture of the distal radius. There is also a fracture of the ulnar styloid process. Osteopenia is noted. There is moderate degenerative change. The soft tissues are unremarkable. IMPRESSION: No interval change in the radial and ulnar fractures as described above. Reviewed, Interpreted and Dictated by Shaun Leal III, MD Transcribed by Christine Palmer Authenticated and [facility]
== END 2024-03-04 23:59 ==
LOC: RAD 09:02
PROVIDERS: PCP Nurse Practitioner Family; Visit Provider Physician Assistant Surgical
DX: S62.101A Fracture of unspecified carpal bone, right wrist, initial encounter for closed fracture (principal)
CPT/HCPCS: 73110

== ENCOUNTER 2024-04-01 09:40 | Outpatient (CLI) | payer MEDICARE, SELFPAY ==
--- NOTE | 2024-04-01 09:47 | XR_ITS ---
FINAL REPORT CLINICAL HISTORY: right wrist fx COMPARISON: 02/03/2024 FINDINGS: RIGHT WRIST THREE VIEW FINDINGS: Three views show fracture of the distal radius, comminuted and extending into the radiocarpal joint. There is slight worsening of displacement of the radial styloid portion of the fracture. There is also an ulnar styloid fracture present which is stable in appearance. Severe osteopenia is present IMPRESSION: Comminuted distal radial fracture extending into the radiocarpal joint, with slight worsening of displacement of the radial styloid portion of the fracture. Ulnar styloid fracture is stable. Reviewed, Interpreted and Dictated by Ledy Martinez MD Transcribed by Raya Edwards Authenticated and . [facility]
== END 2024-04-01 23:59 | disposition home or self-care (01) ==
LOC: RAD 09:42
PROVIDERS: PCP Nurse Practitioner Family; Visit Provider Physician Assistant Surgical
DX: M25.531 Pain in right wrist (principal); S62.101A Fracture of unspecified carpal bone, right wrist, initial encounter for closed fracture
CPT/HCPCS: 73110

== ENCOUNTER 2024-05-13 10:10 | Outpatient (CLI) | payer MEDICARE, SELFPAY ==
--- NOTE | 2024-05-13 10:14 | XR_ITS ---
FINAL REPORT CLINICAL HISTORY: right wrist fx COMPARISON: 04/01/2024 FINDINGS: RIGHT WRIST Three views were obtained. Again noted is an impacted fracture of the distal radius. The bony alignment is stable. There is also a fracture of the ulnar styloid process. Osteopenia is noted. There are degenerative changes. The soft tissues are unremarkable. IMPRESSION: Distal radius and ulnar styloid process fractures. Reviewed, Interpreted and Dictated by Shaun Leal III, MD Transcribed by Christine Palmer Authenticated and [facility]
== END 2024-05-13 23:59 | disposition home or self-care (01) ==
LOC: RAD 10:12
PROVIDERS: PCP Nurse Practitioner Family; Visit Provider Physician Assistant Surgical
DX: M25.531 Pain in right wrist; S62.101A Fracture of unspecified carpal bone, right wrist, initial encounter for closed fracture
CPT/HCPCS: 73110

== ENCOUNTER 2024-09-28 09:38 | Outpatient (CLI) | payer MEDICARE, SELFPAY ==
--- NOTE | 2024-09-28 09:44 | XR_ITS ---
PROCEDURE INFORMATION: Exam: XR Right Tibia and Fibula Exam date and time: 09/28/2024 9:48 AM Age: 89 years old Clinical indication: Injury or trauma; Fall and other: Open wound on lateral side; Blunt trauma; Lower leg; Right; Additional info: Chronic wound TECHNIQUE: Imaging protocol: Radiologic exam of the right tibia and fibula. Views: 2 views. COMPARISON: No relevant prior studies available. FINDINGS: Bones/joints: Degenerative changes in the knee and ankle.. There is no evidence of acute fracture.There is no evidence of malalignment or dislocation. Soft tissues: Soft tissue swelling of the leg IMPRESSION: 1. Degenerative changes in the knee and ankle.. 2. There is no evidence of acute fracture.There is no evidence of malalignment or dislocation.
== END 2024-09-28 23:59 | disposition home or self-care (01) ==
LOC: RAD 09:40
PROVIDERS: PCP Nurse Practitioner Family; Visit Provider Nurse Practitioner Family
DX: T14.8XXA Other injury of unspecified body region, initial encounter (principal); S81.801D Unspecified open wound, right lower leg, subsequent encounter
CPT/HCPCS: 73590

== ENCOUNTER 2024-09-30 12:19 | Outpatient (CLI) | payer MEDICARE, SELFPAY ==
[2024-09-30 12:50] LABS: Basophils % 0.1 % (0.1-2.0); Eosinophils % 0.4 % (0.1-12.0); Hematocrit 41.4 % (37.0-47.0); Lymphocytes # 0.9 K/mm3 (0.7-4.5); Mean Corpuscular HGB Conc 31.3 g/dL (31.8-35.4); Mean Corpuscular Hemoglobin 25.9 pg (27.0-31.2); Mean Corpuscular Volume 82.8 fl (81-99); Mean Platelet Volume 7.5 fl (7.4-10.4); Monocytes # 0.3 K/mm3 (0.1-1.0); Monocytes % 3.1 % (1.7-9.3); Neutrophils # 8.3 K/mm3 (1.8-7.8); Neutrophils % 87.5 % (37.0-80.0); Platelet Count 482 K/mm3 (142-424); Red Blood Count 5.01 M/mm3 (4.20-5.40); Red Cell Distribution Width 15.1 % (11.5-17.5); White Blood Count 9.5 K/mm3 (4.8-10.8)
[2024-09-30 12:52] LABS: MANUAL DIFFERENTIAL MANUAL DIFFERENTIAL (MANUAL DIFF)
[2024-09-30 13:05] LABS: Lymphocytes % 11 % (10-50); Monocytes % 1 % (2-9); Neutrophils % 88 % (42-76); Platelet Estimate Slight Increase; RBC Morphology Normal; Total Cells Counted 100
[2024-09-30 14:29] LABS: Erythrocyte Sedimentation Rate 19 mm/hr (0-30)
== END 2024-09-30 23:59 | disposition home or self-care (01) ==
LOC: LAB.DROPOF 12:30
PROVIDERS: PCP Internal Medicine Adolescent Medicine; Visit Provider Internal Medicine Adolescent Medicine
DX: I10 Essential (primary) hypertension (principal)
CPT/HCPCS: 85007; 85025; 85651

== ENCOUNTER 2024-09-30 18:52 | Outpatient (CLI) | payer MEDICARE, SELFPAY ==
[2024-09-30 20:18] LABS: Anion Gap 15.9 mEq/L (5-15); Blood Urea Nitrogen 24 mg/dl (7-17); Carbon Dioxide 26 mmol/L (22.0-30.0); Chloride 99 mmol/L (98-107); Estimated Glomerular Filt Rate 47 ml/min (>60); GFR (African American) 57 ML/MIN (>60); Glucose 177 mg/dl (74-100); Potassium 4.9 mmoL/L (3.5-5.1); Sodium 136 mmol/L (136-145)
[2024-09-30 20:23] LABS: C-Reactive Protein 6.3 mg/L (0-4)
== END 2024-09-30 23:59 | disposition home or self-care (01) ==
LOC: LAB.DROPOF 18:54
PROVIDERS: PCP Internal Medicine Adolescent Medicine; Visit Provider Internal Medicine Adolescent Medicine
DX: I10 Essential (primary) hypertension (principal); I69.320 Aphasia following cerebral infarction; I69.312 Visuospatial deficit and spatial neglect following cerebral infarction; I48.0 Paroxysmal atrial fibrillation; Z79.899 Other long term (current) drug therapy; S52.501D Unspecified fracture of the lower end of right radius, subsequent encounter for closed fracture with routine healing
CPT/HCPCS: 80048; 85007; 85025; 85651; 86140

== ENCOUNTER 2024-11-02 10:00 | Outpatient (RCR) | payer MEDICARE, SELFPAY ==
--- NOTE | 2024-01-12 15:52 | HMH.PTOPWND ---
Rehab Outpt Wound Evaluation Rehab OP Wound Evaluation Start: 01/12/24 15:40 Freq: Status: Active Protocol: Document 01/12/24 15:41 RYAN (Rec: 01/12/24 15:52 PHOMARIAELENA [id number]) E-signed By Ganga Soriano, PT Subjective/History History History This is the initial PT eval for Sheri Laughlin, 89 yowf who presents with R lower leg cellulitis with open wounds x ~2-3 mos. She reports no injury preceding the wounds, It just opened up. She had swab culture obtained by physicians office which shows MRSA+ and has been taking oral abx as presribed. She has hx of chronic R LE lymphedema, which complicates her healing. She reports intermittent burning pain and increased tenderness to palpation throughout the L lower leg. Subjective Subjective Currently TTP 2/4 in R lower leg from mid-calf distally. 2+ pitting edema noted throughout the R LE. Increased erythema and lipodermatosclerosis also noted. New diagnosis of cancer in past 12 No months? Wound Eval Wound Right Mart Wound Type cellulitis with open sore Is This a Chronic Wound Yes Wound Length (cm) 8.0 Wound Width (cm) 6.7 Wound Depth (cm) 0.1 Wound Bed Appearance Beefy Red,Yellow Percentage Granulated (%) 25 Percentage of Slough (%) 75 Wound Margins Description Indistinct Surrounding Tissue Appearance Bright Red,Dark Red Edema Type Pitting Edema Degree 2+ Query Text:1+ Trace, Barely Detectable, Rebound 15-30 seconds 2+ Moderate, Slight Indentation, Rebound 10-20 seconds 3+ Deep, Deeper Indentation, Rebound > 30 seconds 4+ Very Deep, Rebound > 60 seconds Edema Appearance Weeping,Puffy Drainage Description Serous Drainage Amount Large Wound Topical Solution/Irrigant Saline Irrigant Primary Dressing Silver Dressing Comment opticell Ag Wound Secondary Dressing Type Absorbant Pad,Gauze Roll/Wrap, Adhering Gauze Roll Comment optisevero garcia coban Wound Debridement Method Gauze,Mechanical Wound Debridement Amount of Tissue None Removed Dressing Change Patient Tolerance Tolerated Well Wound Problems/Impairments Impairments Problems/Impairmments Palpation Tenderness,Impaired Range of Motion,Impaired Strength,Impaired Endurance, Impaired Transfers,Impaired Gait Pattern,Impaired Walking, Impaired Standing,Impaired Sitting,Impaired Dressing, Increased Edema,Lymphedema Present,Wound Care Needs, Subjective C/O Pain,Impaired Self Care/Self Management Prognosis Rehab Potential Good Clinical Impression Consistent with Diagnosis Yes Short Term Goals Number of Weeks 4 Decreased Palpation Tenderness Yes: 1/4 R LE Decrease Edema Yes: 1+ pitting edema Decrease Wound Area Yes: by 25% Patient to Understand Lymphedema Yes Treatment and Exercises Surgical Pathologist Goals Number of Weeks 6-8 Decreased Palpation Tenderness Yes: 0/4 R LE Decrease Lymphedema Yes: Mild fibrotic edema Decrease Wound Area Yes: by 75% Patient to be Ind w/ HEP Yes Patient to be Ind w/ Donning/Gratis Yes Compression Garments Patient to Adhere Lymphedema Precautions Yes Outpatient Therapy Plan of Care Treatment Plan May Include Therapeutic Exercise Including Home Yes Exercise Program Manual Therapy Techniques Yes Neuromuscular Re-education Yes Therapeutic Activities to Return to Yes Previous Functional/Work Level ADL/Self Care Education Yes Ultrasound/Phonophoresis Yes Orthotics/Bracing/Splinting Yes Manual Lymphatic Drainage Yes Wound Care Yes Eval/Re-Eval Yes Frequency Times per week 2-3 Duration Number of Weeks 6-8 Addendums This patient is a candidate for social No or vocational rehab? Patient/Guardian verbally acknowledges Yes understanding of treatment program and consents to further treatment? Patient/Guardian verbally acknowledges Yes understanding of diagnosis, prognosis and goals for treatment? Eval Complexity PT Charges 90192 - High Complexity PHYSICIAN CERTIFICATION: I certify the specified therapy services for Sheri Laughlin are required, authorized, and reviewed every 30 days.
--- NOTE | 2024-02-19 13:02 | HMH.RHREAS ---
Rehab Reassessment Rehab OP Re-assessment Start: 01/12/24 15:40 Freq: Status: Active Protocol: Document 02/19/24 12:56 RYAN (Rec: 02/19/24 13:02 PHOMARIAELENA [id number]) E-signed By Ganga Soriano, PT Rehab Re-assessment Subjective Subjective Pt reports less pain and tenderness overall in her R olguin wound. However, she recently suffered a fall at home with a resulting R wrist fx and L UE wounds. Objective Objective Notes R olguin wound: L= 6.4 cm, W= 5. 0 cm, D= 0.1 cm. Less drainage noted, but some slough remains in the wound bed. Overall surface area is reduced by 40% vs IE. Assessment Progress Assessment Progressing as Expected Assessment Notes Pt has shown significant overall healing, but new injuries after her fall will undoubtedly slow her healing at this time: She continues to need skilled intervention to return to prior level of function. Patient goals met ST,2,3,4 Goals Not Met LT,2,3,4,5,6 Plan Plan Continue per initial POC. Will monitor new wounds for healing and treat as needed. Frequency of Therapy 2-3 x/wk Duration of therapy 4 wks Time and Billing Re-Eval Time 12 Re-Eval Billing Units 0 PHYSICIAN CERTIFICATION: I certify the specified therapy services for Sheri Laughlin are required, authorized, and reviewed every 30 days.
--- NOTE | 2024-03-16 10:48 | HMH.RHREAS ---
Rehab Reassessment Rehab OP Re-assessment Start: 01/12/24 15:40 Freq: Status: Active Protocol: Document 03/16/24 10:46 RYAN (Rec: 03/16/24 10:48 RYAN [id number]) E-signed By Ganga Soriano, PT Rehab Re-assessment Subjective Subjective Pt reports feeling tender in the wound bed this date. Feels she is improving. Objective Objective Notes R olguin wound: L= 2.0 cm, W= 4. 0 cm, D= 0.3 cm. Less drainage noted, but some slough remains in the wound bed. Assessment Progress Assessment Progressing as Expected Assessment Notes Pt has shown significant overall healing, but new injuries after her fall will undoubtedly slow her healing at this time: She continues to need skilled intervention to return to prior level of function. Patient goals met ST,2,3,4 Goals Not Met LT,2,3,4,5,6 Plan Plan Continue per initial POC. Will monitor new wounds for healing and treat as needed. Frequency of Therapy 2-3 x/wk Duration of therapy 4 wks Time and Billing Re-Eval Time 11 Re-Eval Billing Units 0 PHYSICIAN CERTIFICATION: I certify the specified therapy services for Sheri Laughlin are required, authorized, and reviewed every 30 days.
--- NOTE | 2024-04-13 10:33 | HMH.RHREAS ---
Rehab Reassessment Rehab OP Re-assessment Start: 01/12/24 15:40 Freq: Status: Active Protocol: Document 04/13/24 10:24 PHORNE (Rec: 04/13/24 10:32 PHORNE Laptop) E-signed By Ganga Soriano, PT [place] Wound Assessment Tool Assessment Wound size 2=Length x Width 4--<16 sq cm Wound depth 3=Full thickness skin loss involving damage or necrosis of Wound edges 3=Well-defined, not attached to wound base Wound undermining 1=None present Necrotic tissue type 3=Loosely adherent yellow slough Necrotic tissue amount 2=<25% of wound bed covered Exudate type 3=Serosanguineous: thin, watery, pale red/pink Exudate amount 4=Moderate Skin color surrounding wound 1=[place] or normal for ethnic group Peripheral tissue edema 3=Non-pitting edema extends > or= to 4 cm around wound Peripheral tissue induration 1=None present Granulation tissue 2=Bright, beefy red;75% to 100 % of wound filled &/or tissue overgrowth Epithelialization 5= < 25% wound covered Wound assessment total score 33 Rehab Re-assessment Subjective Subjective Pt reports she feels better with her R olguin wound with less pain, but remains slightly tender to palpation. Objective Objective Notes R olguin wound: L= 2.0 cm, W= 3. 5 cm, D= 0.2 cm. Less drainage noted, ~ 10% of the wound bed remains yellow slough with 90% granulation tissue. Assessment Progress Assessment Progressing as Expected Assessment Notes Pt has shown significant overall healing, but the injuries after her recent fall have delayed her healing at this time: She continues to need skilled intervention to return to prior level of function. Patient goals met ST,2,3,4 Goals Not Met LT,2,3,4,5,6 Plan Plan Continue per initial POC. Will monitor new wounds for healing and treat as needed. Frequency of Therapy 2-3 x/wk Duration of therapy 4 wks Time and Billing Re-Eval Time 10 Re-Eval Billing Units 0 PHYSICIAN CERTIFICATION: I certify the specified therapy services for Sheri Laughlin are required, authorized, and reviewed every 30 days.
--- NOTE | 2024-05-11 10:22 | HMH.RHREAS ---
Rehab Reassessment Rehab OP Re-assessment Start: 01/12/24 15:40 Freq: Status: Active Protocol: Document 05/11/24 10:18 RYAN (Rec: 05/11/24 10:22 PHOMARIAELENA [id number]) E-signed By Ganga Sroiano PT [place] Wound Assessment Tool Assessment Wound size 1=Length x Width <4 sq cm Wound depth 2=Partial thickness skin loss involving epidermis &/or dermis Wound edges 2=Distinct, outline clearly visible, attached, even with wound base Wound undermining 1=None present Necrotic tissue type 1=Non visible Necrotic tissue amount 1=None visible Exudate type 2=Bloody Exudate amount 2=Scant, wound moist but no observable exudate Skin color surrounding wound 1=[place] or normal for ethnic group Peripheral tissue edema 3=Non-pitting edema extends > or= to 4 cm around wound Peripheral tissue induration 1=None present Granulation tissue 2=Bright, beefy red;75% to 100 % of wound filled &/or tissue overgrowth Epithelialization 3=50% to <75% wound covered &/ or epithelial tissue extends to < 0.5cm Wound assessment total score 22 Rehab Re-assessment Subjective Subjective She reports no pain this date except with dressing removal. She feels much improved and is happy with her progress. Objective Objective Notes R olguin wound: L= 1.0 cm, W= 2. 2 cm, D= 0.1 cm. Less drainage noted, 99% granulation tissue. Continues to have baseline pitting edema in B LE. Assessment Progress Assessment Progressing as Expected Assessment Notes Pt has shown significant overall healing, but the injuries after her recent fall have delayed her healing at this time: She continues to need skilled intervention to return to prior level of function. Patient goals met ST,2,3,4 Goals Not Met LT,2,3,4,5,6 Plan Plan Continue per initial POC. Will monitor new wounds for healing and treat as needed. Frequency of Therapy 2-3 x/wk Duration of therapy 4 wks Time and Billing Re-Eval Time 11 Re-Eval Billing Units 0 PHYSICIAN CERTIFICATION: I certify the specified therapy services for Sheri Laughlin are required, authorized, and reviewed every 30 days.
--- NOTE | 2024-06-10 17:18 | HMH.RHREAS ---
Rehab Reassessment Rehab OP Re-assessment Start: 01/12/24 15:40 Freq: Status: Active Protocol: Document 06/10/24 17:15 PHOLaurenSARAH (Rec: 06/10/24 17:18 PHORNE [id number]) E-signed By Ganga Soriano, PT [place] Wound Assessment Tool Assessment Wound size 1=Length x Width <4 sq cm Wound depth 2=Partial thickness skin loss involving epidermis &/or dermis Wound edges 2=Distinct, outline clearly visible, attached, even with wound base Wound undermining 1=None present Necrotic tissue type 1=Non visible Necrotic tissue amount 1=None visible Exudate type 2=Bloody Exudate amount 2=Scant, wound moist but no observable exudate Skin color surrounding wound 1=[place] or normal for ethnic group Peripheral tissue edema 2=Non-pitting edema extends <4 cm around wound Peripheral tissue induration 1=None present Granulation tissue 2=Bright, beefy red;75% to 100 % of wound filled &/or tissue overgrowth Epithelialization 2=75% to < 100% wound covered &/or epithelial tissue extends > 0.5cm Wound assessment total score 20 Rehab Re-assessment Subjective Subjective Pt reports little to no discomfort in the R olguin wound this date. It doesn't hurt to the touch anymore either, I feel a whole lot better. Objective Objective Notes R olguin wound: L= 1.0 cm, W= 2. 0 cm, D= 0.1 cm. Less drainage noted, 99% granulation tissue. Continues to have baseline pitting edema in B LE. Assessment Progress Assessment Progressing as Expected Assessment Notes Pt has shown significant overall healing, but the injuries after her recent fall have delayed her healing at this time: She continues to need skilled intervention to return to prior level of function. Patient goals met ST,2,3,4 Goals Not Met LT,2,3,4,5,6 Plan Plan Continue per initial POC. Frequency of Therapy 2-3 x/wk Duration of therapy 4 wks Time and Billing Re-Eval Time 10 Re-Eval Billing Units 0 PHYSICIAN CERTIFICATION: I certify the specified therapy services for Sheri Laughlin are required, authorized, and reviewed every 30 days.
--- NOTE | 2024-07-16 16:06 | HMH.RHREAS ---
Rehab Reassessment Rehab OP Re-assessment Start: 01/12/24 15:40 Freq: Status: Active Protocol: Document 07/16/24 16:03 BETHLaurenSARAH (Rec: 07/16/24 16:06 PHOMARIAELENA [id number]) E-signed By Ganga Soriano, PT Rehab Re-assessment Subjective Subjective Pt reports no considerably increased pain at this time, but she does remain sore overall in the R lower leg, 5/ 10. She has difficulty maintaining her LE elevation throughout the day at her SNF. Objective Objective Notes R olguin wound: L= 2.0 cm, W= 3. 8 cm, D= 0.1 cm. Less drainage noted, 75% granulation tissue, 25% slough . Continues to have baseline pitting edema in B LE. Assessment Progress Assessment Slower Than Expected Assessment Notes Pt was healing somewhat better previously, but now has increased wound surface area and unhealthy tissue vs last reassessment. She continues to need skilled therapy services to reduce wound surface area and to return to PLOF. Patient goals met ST,2,3,4 Goals Not Met LT,2,3,4,5,6 Plan Plan Continue per initial POC. Frequency of Therapy 2-3 x/wk Duration of therapy 4 wks Time and Billing Re-Eval Time 11 Re-Eval Billing Units 0 PHYSICIAN CERTIFICATION: I certify the specified therapy services for Sheri Laughlin are required, authorized, and reviewed every 30 days.
--- NOTE | 2024-08-24 16:32 | HMH.RHREAS ---
Rehab Reassessment Rehab OP Re-assessment Start: 01/12/24 15:40 Freq: Status: Active Protocol: Document 08/24/24 16:28 PHOLaurenSARAH (Rec: 08/24/24 16:32 PHORSARAH [id number]) E-signed By Ganga Soriano, PT Rehab Re-assessment Subjective Subjective Pt reports some burning in my leg but not all the time. Has reported less overall concerns with her wound. Objective Objective Notes R olguin wound: L= 0.8 cm, W= 2. 0 cm, D= 0.1 cm. Less drainage noted, 75% granulation tissue, 25% slough . Continues to have baseline pitting edema in B LE. Assessment Progress Assessment Progressing as Expected Assessment Notes Pt has shown improvement in overall surface area of wound since last reassessment with new round of oral abx. She continues to need skilled therapy services to reduce wound surface area and to return to PLOF. Patient goals met ST,2,3,4 Goals Not Met LT,2,3,4,5,6 Plan Plan Continue per initial POC. Frequency of Therapy 2-3 x/wk Duration of therapy 4 wks Time and Billing Re-Eval Time 10 Re-Eval Billing Units 0 PHYSICIAN CERTIFICATION: I certify the specified therapy services for Sheri Laughlin are required, authorized, and reviewed every 30 days.
--- NOTE | 2024-09-21 11:50 | HMH.RHREAS ---
Rehab Reassessment Rehab OP Re-assessment Start: 01/12/24 15:40 Freq: Status: Active Protocol: Document 09/21/24 11:47 PHOMARIAELENA (Rec: 09/21/24 11:50 PHORSARAH [id number]) E-signed By Ganga Soriano, PT Rehab Re-assessment Subjective Subjective Pt reports pain today 5/10 in the R lower leg. Feels her wound is not healing as well as she would like. Objective Objective Notes R olguin wound: L= 7.0 cm, W= 4. 2 cm, D= 0.2 cm. Less drainage noted, 50% granulation tissue, 50% slough . Continues to have baseline pitting edema in B LE. Assessment Progress Assessment Slower Than Expected Assessment Notes Pt wound has drastically increased in size with significantly increased drainage and more slough noted . She has shown significantly slower healing than expected vs previous reassessment. She continues to need skilled therapy services to reduce overall wound size and return pt to her PLOF. Patient goals met ST,2,[address] LT,2,3,4,5,6 Plan Plan Continue per initial POC. Frequency of Therapy 2-3 x/wk Duration of therapy 4 wks Time and Billing Re-Eval Time 11 Re-Eval Billing Units 1 PHYSICIAN CERTIFICATION: I certify the specified therapy services for Sheri Laughlin are required, authorized, and reviewed every 30 days.
--- NOTE | 2024-10-19 13:03 | HMH.RHREAS ---
Rehab Reassessment Rehab OP Re-assessment Start: 01/12/24 15:40 Freq: Status: Active Protocol: Document 10/19/24 10:53 RYNA (Rec: 10/19/24 10:57 RYAN [id number]) E-signed By Ganga Soriano, PT Rehab Re-assessment Subjective Subjective Pt reports much less pain and not currently having the burning sensation in the wound that she previously had. Pt reports she found out her wound culture was positive for MRSA. Objective Objective Notes R olguin wound: L= 3.9 cm, W= 2. 1 cm, D= 0.1 cm. Less drainage noted, 90% granulation tissue, 10% slough . Continues to have baseline pitting edema in B LE. Assessment Progress Assessment Progressing as Expected Assessment Notes Pt wound has shown significant decrease in size with significantly less drainage and slough noted. She is steadily improving now, but continues to exhibit pitting edema to R LE. She continues to need skilled therapy services to reduce overall wound size and return pt to her PLOF. Patient goals met ST,2,[address] LT,2,3,4,5,6 Plan Plan Continue per initial POC. Frequency of Therapy 2-3 x/wk Duration of therapy 4 wks Time and Billing Re-Eval Time 10 Re-Eval Billing Units 0 Charge for PT reassessment? No PHYSICIAN CERTIFICATION: I certify the specified therapy services for Sheri Laughlin are required, authorized, and reviewed every 30 days.
== END 2024-11-02 23:59 | disposition home or self-care (01) ==
LOC: PT 10:00
PROVIDERS: Visit Provider Nurse Practitioner Family
DX: L03.115 Cellulitis of right lower limb (principal); I89.0 Lymphedema, not elsewhere classified
CPT/HCPCS: 29580; 97140; 97163; 97164; 97597; 97598; 97605

== ENCOUNTER 2024-11-06 07:34 | Emergency (ER) | payer MEDICARE, SELFPAY ==
[2024-11-06] VITALS (7 sets, daily range): BP systolic 117–149; BP diastolic 59–72; PULSE 50–78; RESP 15–18; TEMP 36.7–36.9; O2SAT 94–97; BMI 35.0
--- NOTE | 2024-11-06 07:44 | XR_ITS ---
PROCEDURE INFORMATION: Exam: XR Chest Exam date and time: 11/06/2024 8:04 AM Age: 89 years old Clinical indication: Cough; Additional info: Confusion, coughing, R/O infectious source TECHNIQUE: Imaging protocol: Radiologic exam of the chest. Views: 1 view. COMPARISON: CR XR CHEST PORTABLE 02/03/2024 1:22 PM FINDINGS: Lungs: Unremarkable. No consolidation. Pleural spaces: Unremarkable. No pleural effusion. No pneumothorax. Heart/Mediastinum: There is a large hiatal hernia. The heart size is not well assessed. Bones/joints: Unremarkable. IMPRESSION: Large hiatal hernia. Otherwise no evidence of acute pulmonary process.
--- NOTE | 2024-11-06 07:44 | CT_ITS ---
PROCEDURE INFORMATION: Exam: CTA Head With Contrast, Arteriography Exam date and time: 11/06/2024 8:02 AM Age: 89 years old Clinical indication: Headache and other: Confusion; Additional info: Confusion, previous CVA, headache TECHNIQUE: Imaging protocol: Computed tomographic angiography of the head with contrast. Exam focused on the arteries. 3D rendering (Not supervised by radiologist): MIP and/or 3D reconstructed images were created by the technologist. Radiation optimization: All CT scans at this facility use at least one of these dose optimization techniques: automated exposure control; mA and/or kV adjustment per patient size (includes targeted exams where dose is matched to clinical indication); or iterative reconstruction. Contrast material: ISOVUE 370; Contrast volume: 80 ml; Contrast route: INTRAVENOUS (IV); COMPARISON: CT ANGIO HEAD 02/03/2024 1:16 PM FINDINGS: ANTERIOR CIRCULATION: Right internal carotid artery: There is moderate stenosis of the supraclinoid segment and [id number] stenosis of the cavernous segment of the right internal carotid artery secondary to heavy calcified plaque. Right middle cerebral artery: No occlusion or significant stenosis. No aneurysm. Right anterior cerebral artery: No occlusion or significant stenosis. No aneurysm. Left internal carotid artery: There is severe stenosis of the supraclinoid segment and moderate stenosis of the cavernous segment of the left internal carotid artery secondary to heavy calcified plaque. Left middle cerebral artery: No occlusion or significant stenosis. No aneurysm. Left anterior cerebral artery: No occlusion or significant stenosis. No aneurysm. POSTERIOR CIRCULATION: Right vertebral artery: There is mild to moderate focal stenosis of the right vertebral artery secondary to calcified plaque. Left vertebral artery: There is mild focal stenosis of the left vertebral artery secondary to calcified plaque. Basilar artery: No occlusion or significant stenosis. No aneurysm. Right posterior cerebral artery: No occlusion or significant stenosis. No aneurysm. Left posterior cerebral artery: There is occlusion of the P3 segment of the left posterior cerebral artery. Brain: No definite mass, mass effect, or midline shift. Cerebral ventricles: No ventriculomegaly. Bones/joints: Unremarkable. No acute fracture. Soft tissues: Unremarkable. IMPRESSION: 1. 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 2. Bilateral internal carotid artery stenosis left greater than right. 3. Bilateral vertebral artery stenosis.
--- NOTE | 2024-11-06 07:44 | CT_ITS ---
PROCEDURE INFORMATION: Exam: CT Head Without Contrast Exam date and time: 11/06/2024 8:02 AM Age: 89 years old Clinical indication: Altered mental status/memory loss; Additional info: Confusion, previous CVA TECHNIQUE: Imaging protocol: Computed tomography of the head without contrast. Radiation optimization: All CT scans at this facility use at least one of these dose optimization techniques: automated exposure control; mA and/or kV adjustment per patient size (includes targeted exams where dose is matched to clinical indication); or iterative reconstruction. COMPARISON: CT ANGIO HEAD 11/06/2024 8:02 AM FINDINGS: Brain: There is moderate small vessel disease. There is a chronic right occipital lobe infarct. There is no evidence of acute parenchymal hemorrhage, extra-axial collection, or acute infarction. There is no mass effect, midline shift, or downward herniation. Cerebral ventricles: No ventriculomegaly. Paranasal sinuses: Visualized sinuses are unremarkable. No fluid levels. Mastoid air cells: Visualized mastoid air cells are well aerated. Bones: Unremarkable. No acute fracture. Soft tissues: Unremarkable. IMPRESSION: 1. No evidence of acute intracranial process. 2. Moderate small vessel disease. Chronic right occipital lobe infarct.
--- NOTE | 2024-11-06 07:44 | CT_ITS ---
PROCEDURE INFORMATION: Exam: CTA Neck With Contrast Exam date and time: 11/06/2024 8:02 AM Age: 89 years old Clinical indication: Headache and other: Confusion; Additional info: Confusion, previous CVA TECHNIQUE: Imaging protocol: Computed tomographic angiography of the neck with contrast. Exam focused on the cervical segments of the vasculature. 3D rendering (Not supervised by radiologist): MIP and/or 3D reconstructed images were created by the technologist. Radiation optimization: All CT scans at this facility use at least one of these dose optimization techniques: automated exposure control; mA and/or kV adjustment per patient size (includes targeted exams where dose is matched to clinical indication); or iterative reconstruction. Contrast material: ISOVUE 370; Contrast volume: 80 ml; Contrast route: INTRAVENOUS (IV); COMPARISON: CT ANGIO NECK 02/03/2024 1:16 PM FINDINGS: Right common carotid artery: There is heavy calcified plaque at the right carotid bulb and bifurcation. There is stenosis of the carotid bulb measuring less than 50%. Right internal carotid artery: There is proximal stenosis measuring less than 50%. Right external carotid artery: No occlusion or stenosis of the origin. Left common carotid artery: There is mild to moderate plaque at the left carotid bulb and bifurcation. There is stenosis of the carotid bulb measuring less than 50%. Left internal carotid artery: No stenosis of the extracranial segment. No dissection or occlusion. Left external carotid artery: No occlusion or stenosis of the origin. Right vertebral artery: Again seen is lack of flow in the proximal portion with distal reconstitution of flow. Left vertebral artery: No stenosis. No dissection or occlusion. Left subclavian artery: There is mild stenosis of the proximal left subclavian artery secondary to heavy plaque. Soft tissues: Normal. No significant soft tissue swelling. Bones/joints: No acute fracture. IMPRESSION: 1. Lack of flow again seen in the proximal portion of the right vertebral artery with distal reconstitution of flow. 2. Mild multifocal carotid stenosis. REFERENCES: NASCET CRITERIA. The degree of stenosis in the cervical segment of the internal carotid artery is based on NASCET criteria. Normal is no stenosis. Mild is less than 50% stenosis. Moderate is 50-69% stenosis. Severe is 70% to 99% stenosis. Total occlusion is no detectable patent lumen.
--- NOTE | 2024-11-06 07:44 | ECG_ITS ---
APPROVED REPORT Exam: Resting ECG HR:75 bpm ECG Measurements Heart Rate 75 AXES DC 184 P 48 QRSd 87 QRS 46 QT 418 T 52 QTc 447 Conclusion SINUS RHYTHM WITH OCCASIONAL SUPRAVENTRICULAR PREMATURE COMPLEXES POSSIBLE ANTERIOR MYOCARDIAL INFARCTION , PROBABLY OLD [30 ms Q WAVE IN V3/V4, OR R < 0.2 mV IN V4] BORDERLINE ECG UNCONFIRMED REPORT Electronically signed by : ABDELRAHMAN ABRAHAM, 11/07/2024 04:31:45
--- NOTE | 2024-11-06 07:47 | HMH.EDGENADL ---
Discharge Plan Disposition Patient Disposition: Xfer Other Prescriptions Prescriptions: No Action omeprazole magnesium [Prilosec OTC] 20 mg tablet,delayed release (DR/EC) 20 mg PO DAILY potassium chloride 10 mEq capsule, extended release 10 meq PO DAILY Patient Comments: TAKE ONE CAPSULE BY MOUTH EVERY DAY DIRECTED buspirone 15 mg tablet 15 mg PO TID Patient Comments: TAKE ONE TABLET BY MOUTH THREE TIMES DAILY MAY CAUSE DROWSINESS metoprolol tartrate 25 mg Tablet 25 mg PO BID 30 Days Qty: 60 0RF aspirin 81 mg tablet,delayed release (DR/EC) 81 mg PO DAILY Qty: 30 0RF Referrals Follow up/Referrals: Provider,Referral, MD [Primary Care Provider] - See instructions Print Language Print Language: Belarusian Discharge ED Provider: Almas Pimentel Adult HPI General Chief complaint: Weakness Stated complaint: stroke symptoms Time Seen by Provider: 11/06/24 07:43 History of Present Illness HPI narrative: Patient is a 89-year-old past medical history of A-fib, anxiety disorder, hypertension, previous CVA, lymphedema presenting for altered mental status. Current EMS they were called out to patient's [facility] this morning due to confusion upon their arrival patient was AO x 2 and is normal and AO x 4. Patient's last known normal was prior to going to bed yesterday. Patient is additionally complaining of a headache but is unsure when the headache started. Patient takes aspirin but no other blood thinners. Patient was noted to be confused when she woke up this morning. Patient is a poor historian but denies chest pain, shortness of breath, abdominal pain, nausea, vomiting, fevers. Patient is coughing while interview ongoing. Related Data Home Medications ?Medication ?Instructions ?Recorded ?Confirmed potassium chloride 10 mEq 10 meq PO DAILY 04/11/22 05/13/24 capsule,extended release omeprazole magnesium 20 mg 20 mg PO DAILY 07/23/23 05/13/24 tablet,delayed release (Prilosec OTC) buspirone 15 mg tablet 15 mg PO TID 02/04/24 05/13/24 Previous Rx's ?Medication ?Instructions ?Recorded aspirin 81 mg tablet,delayed 81 mg PO DAILY #30 tabs 02/06/24 release metoprolol tartrate 25 mg tablet 25 mg PO BID 30 days #60 tabs 02/06/24 Allergies Allergy/AdvReac Type Severity Reaction Status Date / Time atorvastatin (ATORVASTATIN) Allergy Unknown MUSCLE, Verified 05/13/24 09:59 UNABLE TO WALK cefuroxime (CEFUROXIME) Allergy Unknown I-RASH Verified 05/13/24 09:59 clindamycin (CLINDAMYCIN) Allergy Unknown Verified 05/13/24 09:59 duloxetine (DULOXETINE) Allergy Unknown NA-NAUSEA Verified 05/13/24 09:59 gabapentin (GABAPENTIN) Allergy Unknown SHAKEY Verified 05/13/24 09:59 penicillin V (PENICILLIN V) Allergy Unknown I-RASH, Verified 05/13/24 09:59 NAUSEA tegaserod (From ZELNORM) Allergy Unknown NA-NAUSEA Verified 05/13/24 09:59 tetracycline (TETRACYCLINE) Allergy Unknown RASH, Verified 05/13/24 09:59 NAUSEA tramadol (TRAMADOL) Allergy Unknown Verified 05/13/24 09:59 Cephalosporins Allergy Verified 05/13/24 09:59 PFSH [facility], [facility] Disclaimer: The information contained in this section may have been updated after the patient was seen, as this information can be updated by other users. Medical History Afib HTN (hypertension) Lymphedema of right upper extremity Breast cancer Obesity (BMI 30.0-34.9) Onychodystrophy Lymphedema of both lower extremities Social History Smoking Status: Never smoker alcohol intake: never current occupational status: other Travel in the last 8 weeks: None household members: other housing: house Other Medical History Have you received the Flu Vaccine for this season: No Have you received the Pneumonia Vaccine: Yes ROS Obtained: Yes All systems reviewed & no additional complaints except as documented Physical Exam General General appearance: alert and in no apparent distress Head Head exam: atraumatic Eye Eye exam: Present normal appearance, PERRL, EOMI and other (Able to see a waving hand with both eyes at 2 feet, difficult to assess counting numbers due to confusion) Neck Neck exam: Present normal inspection Chest Chest inspection: Present normal inspection and symmetric chest wall rise; Absent tenderness Respiratory Respiratory exam: Present normal lung sounds bilaterally; Absent respiratory distress Cardiovascular Cardiovascular exam: Present regular rate and normal rhythm Abdominal Exam Abdominal exam: Present soft; Absent distention, tenderness, guarding or rebound Neurological Exam Neurological exam: Present alert, CN II-XII intact and normal gait; Absent motor sensory deficit Expanded Neurological Exam Patient oriented to: Present person; Absent place or time Speech: Present fluid speech, receptive aphasia and expressive aphasia Cranial nerves: Normal: EOM function (II, III, IV, ), facial sensation (V), facial palsy (VII), spinal accessory function (XI) and tongue deviation (XII) Cerebellar function: Normal: finger to nose and heel to olguin Motor strength - LUE: 5/5 Motor strength - RUE: 5/5 Motor strength - LLE: 5/5 Motor strength - RLE: 5/5 Psychiatric Psychiatric exam: Present normal affect Medical Decision Making Medical Records Screening: Per USPSTF and CDC recommendations, given the prevalence of disease in our region, it is our hospital?s policy to screen for HIV and viral Hepatitis for all patients aged 18 and over and those with ongoing risk factors. Matt Inquiry Pt receiving controlled substance: No Vital Signs: 11/06/24 07:34 11/06/24 08:30 11/06/24 09:00 Temperature 98.4 F Temperature Source Oral Pulse Rate 56 L 52 L Pulse Rate [Left Radial] 62 Respiratory Rate 15 16 Blood Pressure 130/65 141/66 H Blood Pressure [Right Arm] 117/61 Blood Pressure Mean 76 Blood Pressure Mean [Right Arm] 79 02 Sat by Pulse Oximetry 95 97 94 L Oxygen Delivery Method Room Air Room Air 11/06/24 09:30 Temperature Temperature Source Pulse Rate 78 Pulse Rate [Left Radial] Respiratory Rate 18 Blood Pressure 136/72 Blood Pressure [Right Arm] Blood Pressure Mean 77 Blood Pressure Mean [Right Arm] 02 Sat by Pulse Oximetry 96 Oxygen Delivery Method Lab Data Lab Results 11/06/24 07:45: WBC 7.1, RBC 4.52, Hgb 11.8 L, Hct 37.1, MCV 82.3, MCH 26.2 L, MCHC 31.9, RDW 16.0, Plt Count 358, MPV 7.0 L, Neut % (Auto) 71.3, Lymph % (Auto) 18.9, [place] % (Auto) 5.0, Eos % (Auto) 3.8, Baso % (Auto) 1.0, Neut # (Auto) 5.0, Lymph # (Auto) 1.3, [place] # (Auto) 0.4, Eos # (Auto) 0.3, Baso # (Auto) 0.1, PT 10.3, INR 0.91, APTT 27.8, Sodium 135 L, Potassium 4.6, Chloride 102, Carbon Dioxide 30, Anion Gap 7.6, BUN 15, Creatinine 1.10 H, Estimated Creat Clear 57, Estimated GFR 47 L, Est GFR ( Amer) 57 L, Glucose 100, Calcium 8.8, Total Bilirubin 0.5, AST 28, ALT 19, Alkaline Phosphatase 120, Troponin I 0.02, Total Protein 6.4, Albumin 3.6, Globulin 2.8, Albumin/Globulin Ratio 1.3, Urine Color Yellow, Urine Appearance Clear, Urine pH 7.5, Ur Specific [place] 1.015, Urine Protein Negative, Urine Glucose (UA) Negative, Urine Ketones Negative, Urine Blood Negative, Urine Nitrate Negative, Urine Bilirubin Negative, Urine Urobilinogen 0.2, Ur Leukocyte Esterase Negative, Urine RBC None, Urine WBC 3-5, Ur Squamous Epith Cells 3-5, Urine Bacteria Trace 11/06/24 07:45 11/06/24 07:45 Orders (Tests/Meds): ED MEDICATIONS Generic Name Dose Route Start Last Admin Trade Name Freq PRN Reason Stop Dose Admin Sodium Chloride 10 ml 11/06/24 08:13 11/06/24 08:15 Sodium Chloride 0.9% 10ml Syr (Rad Only) IV 12/06/24 08:12 10 ml NEEDED PRN Administration Maintain IV Site Discontinued Medications Generic Name Dose Route Start Last Admin Trade Name Freq PRN Reason Stop Dose Admin Iopamidol 80 ml 11/06/24 08:13 11/06/24 08:15 Iopamidol-370 (76%);100ml Bottle IV 11/06/24 08:14 80 ml ONCE ONE Administration Sodium Chloride 50 ml 11/06/24 08:13 11/06/24 08:15 0.9 % Sodium Chloride 50 Ml Vial IV 11/06/24 08:14 50 ml ONCE ONE Administration ORDERS Category Date Time Status CT angio head Stat Cat Scan 11/06/24 07:[address] angio neck Stat Cat Scan 11/06/24 07:[address] head/brain wo con Stat Cat Scan 11/06/24 07:44 Completed Chest XR -- portable [XR chest portable] Stat Exams 11/06/24 07:44 Completed CBC w/Auto Diff [Complete Blood Count Auto Diff] Stat Lab 11/06/24 07:45 Completed CMP [Comprehensive Metabolic Panel] Stat Lab 11/06/24 07:45 Completed HIV (1&2) Antibody Rapid Stat Lab 11/06/24 07:45 Received Hep C Ab with Reflex to RNA Stat Lab 11/06/24 07:45 Received PTT [Activated Partial Thrombo Time] Stat Lab 11/06/24 07:45 Completed Prothrombin Time INR Stat Lab 11/06/24 07:45 Completed Trop I [Troponin I] Stat Lab 11/06/24 07:45 Completed Troponin I Q3H Lab 11/06/24 10:45 Ordered Troponin I Q3H Lab 11/06/24 13:45 Ordered Urinalysis and Microscopic Stat Lab 11/06/24 07:45 Completed Medical Decision Narrative: In summary, this 81-year-old female presents to the emergency department today with altered mental status. On initial evaluation patient is hemodynamically stable alert and in no acute distress. Patient os alert and oriented x 1 and is normally fully oriented. She does have swelling of her right upper extremity which is chronic but has no motor or sensation deficit. She is able to see my hands waving at 2 feet, but unable to count fingers likely due to confusion. She has no ataxia or dysarthria .differential diagnosis includes but is not limited to UTI, pneumonia, electrolyte abnormality, stroke, hemorrhagic stroke. Based on these concerns, I ordered CTs of the head and neck, chest x-ray and laboratory evaluation. ECG personally interpreted demonstrates ventricular rate of 75, atrial fibrillation, no ST elevations, intervals within normal limits. Labs personally reviewed demonstrate elevation in creatinine. XR personally interpreted demonstrates no acute cardiopulmonary process. CT imaging personally interpreted demonstrate no large vessel occlusion or hemorrhage. Patient was found to have a left P3 new occlusion but her last known normal was around 730 or 8 PM last night when she went to bed. tPA was not given due to being out of the window. I had an interactive discussion with [facility] stroke neurology and based on the imaging and their interpretation patient required no intervention and did not except patient. I also called [facility] and due to this hospital not having a neurologist for further stroke workup and management [facility] accepted with the accepting physician being Dr. Perez. On reassessment similar to previous initial assessments, still confused but no changes in neurodeficits. Critical Care Critical Care Time Critical Care Time: Yes Attestation: On 11/06/24, the high probability of a clinically significant, sudden or life threatening deterioration of the following system(s) required my full and direct attention, intervention and personal management. The time I documented below is in addition to time spent performing reported procedures but includes the following listed in this critical care notation. Total Time Total Critical Care Time: 35
[2024-11-06 08:00] LABS: Microscopic, Urine URINE MICROSCOPIC (MICROSCOPIC)
[2024-11-06 08:02] LABS: Basophils # 0.1 K/mm3 (0-0.2); Eosinophils # 0.3 K/mm3 (0.0-0.4); Eosinophils % 3.8 % (0.1-12.0); Hematocrit 37.1 % (37.0-47.0); Hemoglobin 11.8 g/dL (12.2-16.2); Lymphocytes # 1.3 K/mm3 (0.7-4.5); Lymphocytes % 18.9 % (10-50); Mean Corpuscular HGB Conc 31.9 g/dL (31.8-35.4); Mean Corpuscular Hemoglobin 26.2 pg (27.0-31.2); Mean Corpuscular Volume 82.3 fl (81-99); Monocytes # 0.4 K/mm3 (0.1-1.0); Neutrophils % 71.3 % (37.0-80.0); Platelet Count 358 K/mm3 (142-424); Red Blood Count 4.52 M/mm3 (4.20-5.40); White Blood Count 7.1 K/mm3 (4.8-10.8)
[2024-11-06 08:07] LABS: Appearance,Urine CLEAR (Clear); Bilirubin,Urine Negative (Negative); Blood, Urine Negative (Negative); Color,Urine YELLOW (Yellow); Glucose,Urine (UA) Negative (Negative); Ketones,Urine Negative (Negative); Leukocyte Esterase,Urine Negative (Negative); Nitrate,Urine Negative (Negative); PH,Urine 7.5 (5.0-8.5); Protein,Urine Negative (Negative); Specific Gravity, Urine 1.015 (1.005-1.030); Urobilinogen,Urine 0.2 EU/dl (0.2)
--- NOTE | 2024-11-06 08:13 | HMH.ITSTN ---
GFR completion was overrode by ED physician on a patient risk vs benefit situation.
[2024-11-06] MEDS: 0.9 % SODIUM CHLORIDE 50 ML VIAL IV (08:15)
[2024-11-06] MEDS: SODIUM CHLORIDE 0.9% 10ML SYR (RAD ONLY) 10 ML IV (08:15)
[2024-11-06] MEDS: IOPAMIDOL-370 (76%);100ML BOTTLE 80 ML IV (08:15)
[2024-11-06 08:28] LABS: Alanine Aminotransferase 19 U/L (12-78); Albumin Level 3.6 g/dl (3.5-5.0); Albumin/Globulin Ratio 1.3 (1.1-1.8); Alkaline Phosphatase 120 U/L (38-126); Anion Gap 7.6 mEq/L (5-15); Aspartate Amino Transferase 28 U/L (14-36); Bilirubin,Total 0.5 mg/dl (0.2-1.3); Blood Urea Nitrogen 15 mg/dl (7-17); Calcium 8.8 mg/dl (8.4-10.2); Carbon Dioxide 30 mmol/L (22.0-30.0); Chloride 102 mmol/L (98-107); Creatinine Clearance Estimated 57 mL/min (50-200); Estimated Glomerular Filt Rate 47 ml/min (>60); GFR (African American) 57 ML/MIN (>60); Globulin 2.8 g/dL (1.3-3.2); Glucose 100 mg/dl (74-100); Potassium 4.6 mmoL/L (3.5-5.1); Sodium 135 mmol/L (136-145); Total Protein,Serum 6.4 g/dl (6.3-8.2)
[2024-11-06 08:31] LABS: Activated Partial Thrombo Time 27.8 seconds (22.8-30.6); INR 0.91 (0.9-1.1); Prothrombin Time 10.3 seconds (10.1-12.5)
--- NOTE | 2024-11-06 08:32 | PC.NURSE ---
deon petersen at assiting pt
[2024-11-06 08:40] LABS: Troponin I 0.02 ng/ml (0.00-0.034)
[2024-11-06 08:54] LABS: Bacteria,Urine Trace /lpf
--- NOTE | 2024-11-06 09:20 | PC.NURSE ---
[facility] scans
--- NOTE | 2024-11-06 09:20 | PC.NURSE ---
calling [facility] for weather check
--- NOTE | 2024-11-06 09:23 | PC.NURSE ---
[facility] are not available for pt transport.
--- NOTE | 2024-11-06 09:25 | PC.NURSE ---
CALLED [facility] FOR TRANSFER WAITING FOR STROKE TEAM FOR , HE IS SPEAKING WITH FROM [facility] STROKE TEAM
--- NOTE | 2024-11-06 09:25 | PC.NURSE ---
[facility] being contacted for possible pt transfer due to [facility] not being available.
--- NOTE | 2024-11-06 09:26 | PC.NURSE ---
call made to radiology for [facility] of images and getting a disc burnt.
--- NOTE | 2024-11-06 09:50 | PC.NURSE ---
[facility] accepted pt, eta 23
--- NOTE | 2024-11-06 09:57 | PC.NURSE ---
report called to cassidy at [facility]
[2024-11-06 10:23] LABS: HIV (1&2) Antibody Rapid NONREACTIVE (NONREACTIVE)
[2024-11-07 10:08] LABS: HCV Ab Non Reactive (Non Reactive)
== END 2024-11-06 11:10 | disposition other institution (70) ==
PROVIDERS: Emergency Provider Student in an Organized Health Care Education/Training Program
DX: I63.9 Cerebral infarction, unspecified (principal); R41.82 Altered mental status, unspecified; R51.9 Headache, unspecified; R05.9 Cough, unspecified
CPT/HCPCS: 70450; 70496; 70498; 71045; 80053; 81001; 84484; 85025; 85610; 85730; 86803; 87389; 93005; 99291; Q9967

== ENCOUNTER 2025-02-04 13:18 | Outpatient (CLI) | payer MEDICARE, SELFPAY ==
[2025-02-04 13:46] LABS: Microscopic, Urine URINE MICROSCOPIC (MICROSCOPIC)
[2025-02-04 14:27] LABS: Bilirubin,Urine Negative (Negative); Blood, Urine TRACE-L (Negative); Color,Urine YELLOW (Yellow); Glucose,Urine (UA) Negative (Negative); Ketones,Urine Negative (Negative); Leukocyte Esterase,Urine 2+ (Negative); Nitrate,Urine Negative (Negative); PH,Urine 8.5 (5.0-8.5); Protein,Urine 2+ (Negative); Specific Gravity, Urine 1.015 (1.005-1.030)
[2025-02-04 14:37] LABS: Appearance,Urine Turbid (Clear)
[2025-02-04 15:54] LABS: Bacteria,Urine 4+ /lpf; Squamous Epithelial Cell,Urine Occasional #/hpf (0-5)
== END 2025-02-04 23:59 | disposition home or self-care (01) ==
LOC: LAB.DROPOF 13:20
PROVIDERS: PCP Family Medicine; Visit Provider Nurse Practitioner Family
DX: I10 Essential (primary) hypertension (principal)
CPT/HCPCS: 81001; 87086; 87088; 87186